=== PATIENT | male | born 1965 | race Caucasian/White ===

== ENCOUNTER 2021-03-14 20:59 | Observation (INO) ==
[2021-03-14 22:26] LABS: Basophils # (auto) 0.01 K/uL (0-0.2); Basophils % (auto) 0.1 %; Eosinophils # (auto) 0.13 K/uL (0-0.5); Eosinophils % (auto) 1.6 %; Hematocrit (blood only) 38.2 % (42-52); Hemoglobin 12.7 g/dL (14.0-18.0); Immature Granulocytes # (auto) 0.02 K/uL (0.00-0.02); Immature Granulocytes % (auto) 0.3 %; Lymphocytes # (auto) 1.47 K/uL (1.2-3.4); Lymphocytes % (auto) 18.5 %; Mean Corpuscular Hgb Conc 33.2 g/dL (32-36); Mean Corpuscular Volume 96.2 fL (80-100); Mean Platelet Volume 9.5 fL (7.4-10.4); Monocytes # (auto) 0.94 K/uL (0.11-0.59); Monocytes % (auto) 11.9 %; Neutrophils # (auto) 5.36 K/uL (1.4-6.5); Neutrophils % (auto) 67.6 %; Platelet Count 194 K/uL (130-400); RDW Coefficient of Variation 14.2 % (11.5-14.5); RDW Standard Deviation 50.5 fL (36.4-46.3); Red Blood Count 3.97 M/uL (4.7-6.1); White Blood Count 7.93 K/uL (4.8-10.8)
[2021-03-14] MEDS ORDERED: KETOROLAC TROMETHAMINE 15 MG/ML VIAL IV ONE (22:30)
--- NOTE | 2021-03-14 22:30 | Emergency Department Note ---
Impression & Plan Left-sided chest pain ED Provider Note INFORMANT: Patient ED PROVIDER(S): Marcus Moore MD CHIEF COMPLAINT: Chest pain PLAN: Disposition: Admitted Condition: Good Outpatient prescription management: none Referral: None MEDICAL DECISION MAKING: Patient presented with chest pain. No change with nitroglycerin. The patient had an unremarkable CBC and chemistry panel troponin negative. Chest x-ray was unremarkable. Patient was treated with Toradol. He was given a dose of morphin e. He did feel better with this. The patient did have recurrent pain. His ECG appeared to have no significant findings consistent with ischemia. He was given a dose of nitro and this did seem to help. The patient will need further management in the hospital. Consultation was made with Dr. Giacomo Arriaga of the [facility] service. Patient was evaluated in the ER for further management. Triage Nursing notes reviewed and agree them. Vital Signs: reviewed and remarkable for no significant abnormalities Differential diagnosis: Cardiac ischemia, aortic dissection, pulmonary embolism, pneumothorax, pneumonia, pericarditis, myocarditis, esophageal rupture, GERD, cholecystitis, pancreatitis, musculoskeletal, as well as other pathologies. Diagnostics interpreted by me: ECG: Twelve-lead ECG reveals normal sinus rhythm at [address] Anterolateral T wave inversions. No ST elevation. Normal axis. ECG #2: Twelve-lead ECG reveals sinus bradycardia 52 bpm. The anterolateral T wave changes have improved compared to the first. No PACs or PVCs. Normal axis . Cardiac Monitoring: Cardiac monitoring ordered by me: The patient was placed on continuous cardiac monitoring and observed. It revealed a normal sinus rhythm at 60 beats per minute without ectopy or evidence of dysrhythmia. Imaging studies: Imaging studies: Chest x-ray. Findings: A chest x-ray was performed and revealed no pneumothorax, effusion, infiltrate, pulmonary edema, free air under the diaphragm, or wide mediastinum. Impression: No acute disease. CT scan of the chest is negative for pulmonary embolus or dissection. HPI: The patient is a 55 year old male who presents to the Emergency Room with complaints of left chest pain. This started 1900 hrs and is radiating to the left arm and back. The patient also notes the following associated symptoms, diaphoresis, nausea, SOB. The patient has been given ASA and nitro for relieving factors. Current pain is rated as 7/10. Pt denies LOC, headache, fevers, chills, visual changes, neck pain, vomiting, abdominal pain, back pain, melena, hematochezia, urinary symptoms, numbness, weakness, lymphadenopathy, rash, or other complaints. ROS: See above HPI for pertinent positives & negatives. A total of 10 systems reviewed and were otherwise negative. PAST MEDICAL HISTORY:See Below , TAA PAST SURGICAL HISTORY:See Below, TAA repair FAMILY HISTORY:See Below SOCIAL HISTORY:See Below, incarcerated HOME MEDICATIONS:See Below ALLERGIES:See Below VITALS:See Below PHYSICAL EXAMINATION: GENERAL: Awake, alert, well-appearing, in no distress HENT: Normocephalic, atraumatic. Oropharynx unremarkable. EYES: Normal conjunctiva. Sclera non-icteric. NECK: Inspection normal. Non-tender. Supple. No nuchal rigidity. FROM. No masses. RESPIRATORY: Clear to auscultation. No wheezes. No rales. Normal respiratory effort. CARDIAC: Normal rate. Normal rhythm. No murmurs. No rubs. Extremities warm and well perfused. Pulses equal. No JVD. GI: Soft, non-distended. No tenderness to palpation. No rebound or guarding. No masses. RECTAL: Deferred. MUSCULOSKELETAL: Atraumatic. Chest examination reveals no tenderness. The back is symmetrical on inspection without obvious abnormality. There is no CVA ten derness to palpation. No joint edema. LOWER EXTREMITIES: Calves are equal size bilaterally and non-tender. No edema. No discoloration. NEURO: Normal sensorium. No sensory or motor deficits noted. SKIN: No rash or jaundice noted. Marcus Moore MD Past Med/Surg History Medical History Asthma Surgical History Hx of CABG Social History Smoking Status: Former smoker Tobacco Type: E-cigarettes / Vaping Hx Alcohol Use: No Hx Substance Use: No Preferred Language: Indonesian Communication Ability: Effective Beliefs That Will Affect Care: None Current Living Situation: Other Current Living Situation Comment: state correctional institution Feels Safe at Home: Declines to Answer Assistive Devices: Oxygen - Continuous Allergies Allergies Allergy/AdvReac Type Severity Reaction Status Date / Time Penicillins Allergy Intermediate Hives Verified 02/21/21 02:27 bee venom protein (honey bee) Allergy Unknown Unknown Verified 02/21/21 02:27 cephalexin [From Keflex] AdvReac Intermediate Gastrointestinal Verified 02/21/21 02:27 Upset Home Meds Home Medications Medication Instructions Recorded Confirmed aspirin 81 mg tablet,delayed 81 mg PO DAILY 02/05/21 03/14/21 release atorvastatin 40 mg tablet 40 mg PO DAILY 02/05/21 03/14/21 ciclesonide 80 mcg/actuation 1 puff INHALATION BID 02/05/21 03/14/21 aerosol inhaler (Alvesco) levalbuterol tartrate 45 2 inh INHALATION QID PRN 02/05/21 03/14/21 mcg/actuation aerosol inhaler (Xopenex HFA) lisinopril 20 mg tablet 20 mg PO DAILY 02/05/21 03/14/21 mirtazapine 45 mg tablet 45 mg PO HS 02/05/21 03/14/21 montelukast 10 mg tablet 10 mg PO DAILY 02/05/21 03/14/21 sertraline 50 mg tablet 50 mg PO DAILY 02/05/21 03/14/21 tamsulosin 0.4 mg capsule (Flomax) 0.4 mg PO HS 02/05/21 03/14/21 Previous Rx's Medication Instructions Recorded famotidine 20 mg tablet 20 mg PO DAILY #30 tab 03/15/21 Results & Data (ED) Vital Signs Vital Signs - 24 hr 03/15/21 00:00 03/15/21 01:00 Pulse Rate 51 L 57 L Pulse Rate from SpO2 Sensor 51 L 57 L Respiratory Rate 17 19 Blood Pressure 144/82 H 141/80 H Blood Pressure Mean 102 100 Pulse Oximetry 100 96 Laboratory Data Result diagrams: 03/14/21 21:09 03/14/21 21:09 Lab Results 03/14/21 03/14/21 03/14/21 Range/Units 21:09 21:09 21:09 WBC 7.93 (4.8-10.8) K/uL RBC 3.97 L (4.7-6.1) M/uL Hgb 12.7 L (14.0-18.0) g/dL Hct 38.2 L (42-52) % MCV 96.2 (80-100) fL MCH 32.0 (25-34) pg MCHC 33.2 (32-36) g/dL RDW Std Deviation 50.5 H (36.4-46.3) fL RDW Coeff of Yoselin 14.2 (11.5-14.5) % Plt Count 194 (130-400) K/uL MPV 9.5 (7.4-10.4) fL Immature Gran % (Auto) 0.3 % Neut % (Auto) 67.6 % Lymph % (Auto) 18.5 % [place] % (Auto) 11.9 % Eos % (Auto) 1.6 % Baso % (Auto) 0.1 % Neut # (Auto) 5.36 (1.4-6.5) K/uL Lymph # (Auto) 1.47 (1.2-3.4) K/uL [place] # (Auto) 0.94 H (0.11-0.59) K/uL Eos # (Auto) 0.13 (0-0.5) K/uL Baso # (Auto) 0.01 (0-0.2) K/uL Immature Gran # (Auto) 0.02 (0.00-0.02) K/uL APTT 24.4 (21.0-31.0) Seconds PTT Ratio 0.9 Sodium 138 (136-145) mmol/L Potassium 4.2 (3.5-5.1) mmol/L Chloride 106 (98-107) mmol/L Carbon Dioxide 29 (21-32) mmol/L Anion Gap 3.0 (3-11) BUN 12 (7-18) mg/dl Creatinine 0.90 (0.6-1.4) mg/dl Est Cr Clr Drug Dosing 144.9 ml/min Est GFR ( Amer) 109.5 ml/min Est GFR (Non-Af Amer) 94.5 ml/min BUN/Creatinine Ratio 12.9 (10-20) Glucose 95 (70-99) mg/dl Calcium 8.2 L (8.5-10.1) mg/dl Total Bilirubin 0.3 (0.2-1) mg/dl AST 18 (15-37) U/L ALT 24 (12-78) U/L Alkaline Phosphatase 84 (45-117) U/L Troponin I < 0.015 (0-0.045) ng/ml Total Protein 7.0 (6.4-8.2) gm/dl Albumin 3.4 (3.4-5.0) gm/dl Globulin 3.6 (2.5-4.0) gm/dl Albumin/Globulin Ratio 1.0 (0.9-2) Lipase 107 (73-393) U/L COVID-19 Eval Order SARS-CoV-2 (PCR) (Negative) 03/14/21 03/14/21 Range/Units 21:40 21:40 WBC (4.8-10.8) K/uL RBC (4.7-6.1) M/uL Hgb (14.0-18.0) g/dL Hct (42-52) % MCV (80-100) fL MCH (25-34) pg MCHC (32-36) g/dL RDW Std Deviation (36.4-46.3) fL RDW Coeff of Yoselin (11.5-14.5) % Plt Count (130-400) K/uL MPV (7.4-10.4) fL Immature Gran % (Auto) % Neut % (Auto) % Lymph % (Auto) % [place] % (Auto) % Eos % (Auto) % Baso % (Auto) % Neut # (Auto) (1.4-6.5) K/uL Lymph # (Auto) (1.2-3.4) K/uL [place] # (Auto) (0.11-0.59) K/uL Eos # (Auto) (0-0.5) K/uL Baso # (Auto) (0-0.2) K/uL Immature Gran # (Auto) (0.00-0.02) K/uL APTT (21.0-31.0) Seconds PTT Ratio Sodium (136-145) mmol/L Potassium (3.5-5.1) mmol/L Chloride (98-107) mmol/L Carbon Dioxide (21-32) mmol/L Anion Gap (3-11) BUN (7-18) mg/dl Creatinine (0.6-1.4) mg/dl Est Cr Clr Drug Dosing ml/min Est GFR ( Amer) ml/min Est GFR (Non-Af Amer) ml/min BUN/Creatinine Ratio (10-20) Glucose (70-99) mg/dl Calcium (8.5-10.1) mg/dl Total Bilirubin (0.2-1) mg/dl AST (15-37) U/L ALT (12-78) U/L Alkaline Phosphatase (45-117) U/L Troponin I (0-0.045) ng/ml Total Protein (6.4-8.2) gm/dl Albumin (3.4-5.0) gm/dl Globulin (2.5-4.0) gm/dl Albumin/Globulin Ratio (0.9-2) Lipase (73-393) U/L COVID-19 Eval Order Covid19 at [facility] SARS-CoV-2 (PCR) NEGATIVE (Negative) Administered Medications Discontinued Medications Al Hydrox/Mg Hydrox/Simethicone (Aluminum/Magnesium Susp 30 Ml Udc) 30 ml PO NOW STA Stop: 03/15/21 12:05 Last Admin: 03/15/21 12:09 Dose: 30 ml Documented by: [id number] Aspirin (Aspirin 81 Mg Ectab) 81 mg PO DAILY OLGA Stop: 04/14/21 08:59 Last Admin: 03/15/21 08:35 Dose: 81 mg Documented by: [id number] Atorvastatin Calcium (Atorvastatin 40 Mg Tab) 40 mg PO DAILY OLGA Stop: 04/14/21 08:59 Last Admin: 03/15/21 08:35 Dose: 40 mg Documented by: [id number] Sodium Chloride (Nss 1000ml) 1,000 mls @ 150 mls/hr IV .[id number] OLGA Stop: 04/14/21 05:09 Last Infusion: 03/15/21 07:52 Dose: 0 mls/hr Documented by: [id number] Admin: 03/15/21 05:13 Dose: 150 mls/hr Documented by: [id number] Ibuprofen (Ibuprofen 200 Mg Tab) 400 mg PO Q6H PRN PRN Reason: Pain Stop: 04/14/21 08:03 Last Admin: 03/15/21 11:00 Dose: 400 mg Documented by: [id number] Ioversol (Optiray 320 125ml) 120 ml IV ONCE ONE Stop: 03/14/21 22:49 Last Admin: 03/14/21 22:48 Dose: 120 ml Documented by: [id number] Ketorolac Tromethamine (Ketorolac Tromethamine 15 Mg/Ml Vial) 10 mg IV NOW ONE Stop: 03/14/21 22:31 Last Admin: 03/14/21 23:01 Dose: 10 mg Documented by: [id number] Lisinopril (Lisinopril 20 Mg Tab) 20 mg PO DAILY OLGA Stop: 04/14/21 08:59 Last Admin: 03/15/21 08:35 Dose: 20 mg Documented by: [id number] Montelukast Sodium (Montelukast Sodium 10 Mg Tablet) 10 mg PO DAILY OLGA Stop: 04/14/21 08:59 Last Admin: 03/15/21 08:35 Dose: 10 mg Documented by: [id number] Morphine Sulfate (Morphine Sulfate 2 Mg/Ml Carp) 1 mg IV NOW STA Stop: 03/15/21 00:09 Last Admin: 03/15/21 00:29 Dose: 1 mg Documented by: [id number] Morphine Sulfate (Morphine Sulfate 2 Mg/Ml Carp) 1 mg IV Q3H PRN PRN Reason: Pain Stop: 03/29/21 04:59 Last Admin: 03/15/21 05:33 Dose: 1 mg Documented by: [id number] Nitroglycerin (Nitroglycerin Sl 0.4 Mg/Tab Tab) 0.4 mg SL NOW STA Stop: 03/15/21 02:57 Last Admin: 03/15/21 03:03 Dose: 0.4 mg Documented by: [id number] Sertraline HCl (Sertraline Hcl 50 Mg Tablet) 50 mg PO DAILY [facility] Stop: 04/14/21 08:59 Last Admin: 03/15/21 08:35 Dose: 50 mg Documented by: [id number] Discharge Plan Visit Data Chief Complaint: Chest Pain Stated Complaint: CHEST PAIN w/ NAUSEA ED Provider: Marcus Moore Discharge Problem: Left-sided chest pain Patient Disposition: Admitted As Inpatient Discharge Instructions Interventions: ED Discharge Assessment Last Done: 03/15/21 04:29
[2021-03-14 22:35] LABS: Alanine Aminotransferase 24 U/L (12-78); Albumin Level 3.4 gm/dl (3.4-5.0); Aspartate Aminotransferase 18 U/L (15-37); BUN Creatinine Ratio 12.9 (10-20); Blood Urea Nitrogen 12 mg/dl (7-18); Calcium 8.2 mg/dl (8.5-10.1); Carbon Dioxide 29 mmol/L (21-32); Chloride 106 mmol/L (98-107); Creatinine Clr Calc Pharmacy 144.9 ml/min; Est GFR (African American) 109.5 ml/min; Est GFR (Non-African American) 94.5 ml/min; Glucose 95 mg/dl (70-99); Lipase 107 U/L (73-393); Potassium 4.2 mmol/L (3.5-5.1); Sodium 138 mmol/L (136-145)
[2021-03-14 22:37] LABS: Partial Thromboplastin Ratio 0.9; Partial Thromboplastin Time 24.4 Seconds (21.0-31.0)
[2021-03-14 22:40] LABS: Alkaline Phosphatase 84 U/L (45-117); Bilirubin,Total 0.3 mg/dl (0.2-1); Globulin 3.6 gm/dl (2.5-4.0); Troponin I < 0.015 ng/ml (0-0.045)
[2021-03-14] MEDS ORDERED: OPTIRAY 320 125ml IV ONE (22:48)
[2021-03-15] MEDS ORDERED: MoRPHine SULFATE 2 MG/ML CARP IV STA (00:08)
--- NOTE | 2021-03-15 00:54 | History & Physical Report ---
Date of Service March 15, 2021 Assessment & Plan (1) Left-sided chest pain: Plan: 55 yo M admitted for chest pain/aortic dissection rule out. 1. Chest Pain - first trop negative, trend - mild T wave changes, no ST changes - CTA negative for PE, Ascending aortic arch 3.6 cm, decreased from 3.8cm in 02/13. No sign of dissection - nitroglycerin, daily ekg, cardiology consult. - TTE in AM. - ASA/statin - HR <60 currently, holding off on metoprolol HTN - cont lisinopril - CPAP HS CAD - ASA/statin as above - AM lipid profile, A1c for risk stratification - high risk ASCVD score dvt ppx: lovenox fen/gi: heart healthy code status: full code dispo: med/tele (2) HTN (hypertension): (3) AMI (obstructive sleep apnea): (4) Pre-diabetes: History of Present Illness Primary Care Provider: [facility] Rodriguez 55 yo M with hx ventricular aneurysm? s/p repair in 2019, HTN, HLD, pre- diabetes, AMI who presents to the ER from [facility] for complaints of chest pain that started at 7 pm today. He states it came on all of a sudden, had left sided chest pain that radiated to the back and was extremely sweating. He says the pain is not positional, and continues to this moment, and has not improved much with toradol/morphine. He also attests to trouble and pain with taking deep breaths. He denies any previous episodes like this. He notes that he does have a family history of MA -- his father had multiple MIs starting at age 68 and his maternal grandmother had an MA. Allergies Allergy/AdvReac Type Severity Reaction Status Date / Time Penicillins Allergy Intermediate Hives Verified 02/21/21 02:27 bee venom protein (honey bee) Allergy Unknown Unknown Verified 02/21/21 02:27 cephalexin [From Keflex] AdvReac Intermediate Gastrointestinal Verified 02/21/21 02:27 Upset Home Medications Medication Instructions Recorded Confirmed Type aspirin 81 mg tablet,delayed 81 mg PO DAILY 02/05/21 03/14/21 History release atorvastatin 40 mg tablet 40 mg PO DAILY 02/05/21 03/14/21 History ciclesonide 80 mcg/actuation 1 puff INHALATION BID 02/05/21 03/14/21 History aerosol inhaler (Alvesco) levalbuterol tartrate 45 2 inh INHALATION QID PRN 02/05/21 03/14/21 History mcg/actuation aerosol inhaler (Xopenex HFA) lisinopril 20 mg tablet 20 mg PO DAILY 02/05/21 03/14/21 History mirtazapine 45 mg tablet 45 mg PO HS 02/05/21 03/14/21 History montelukast 10 mg tablet 10 mg PO DAILY 02/05/21 03/14/21 History sertraline 50 mg tablet 50 mg PO DAILY 02/05/21 03/14/21 History tamsulosin 0.4 mg capsule (Flomax) 0.4 mg PO HS 02/05/21 03/14/21 History famotidine 20 mg tablet 20 mg PO DAILY #30 tab 03/15/21 Rx Past Med/Surg History Medical History Asthma Surgical History Hx of CABG Social History Smoking Status: Former smoker Tobacco Type: E-cigarettes / Vaping Hx Alcohol Use: No Hx Substance Use: No Preferred Language: Chilean Communication Ability: Effective Beliefs That Will Affect Care: None Current Living Situation: Other Current Living Situation Comment: state correctional institution Feels Safe at Home: Declines to Answer Assistive Devices: Oxygen - Continuous Review of Systems Review of Systems: All systems reviewed & are unremarkable except as noted in Subjective Physical Exam Physical Exam: Constitutional: obese, in mild distress, anxious appearing Eyes: EOMI, pupils equal and reactive bilaterally, no scleral icterus Cardiac: difficult to auscultate heart sounds given body habitus, RRR, no murmurs, gallops or rubs. Pulm: CTA BL, no wheezes, rhonchi, crackles or rubs, breathing comfortably on 2L NC Abd: soft, nontender, nondistended, normal bowel sounds, no rebound or guarding Extremities: 2+ peripheral pulses in all 4 extremities, no edema Neuro: no focal deficits, moving all 4 limbs, A&Ox3 Results & Data Results & Data ([facility]) Vital Signs (Past 12 Hours) Vital Signs Temp Pulse Resp BP Pulse Ox 03/14/21 23:03 54 L 16 03/14/21 22:00 55 L 17 138/85 98 03/14/21 21:16 61 18 97 03/14/21 21:04 37.2 C 62 18 127/54 L 96 03/14/21 21:00 64 12 127/54 L 98 Laboratory Results Laboratory Results WBC 7.93 K/uL (4.8-10.8) 03/14/21 21:09 RBC 3.97 M/uL (4.7-6.1) L 03/14/21 21:09 Hgb 12.7 g/dL (14.0-18.0) L 03/14/21 21:09 Hct 38.2 % (42-52) L 03/14/21 21:09 MCV 96.2 fL (80-100) 03/14/21 21:09 MCH 32.0 pg (25-34) 03/14/21 21:09 MCHC 33.2 g/dL (32-36) 03/14/21 21:09 RDW Std Deviation 50.5 fL (36.4-46.3) H 03/14/21 21:09 RDW Coeff of Yoselin 14.2 % (11.5-14.5) 03/14/21 21:09 Plt Count 194 K/uL (130-400) 03/14/21 21:09 MPV 9.5 fL (7.4-10.4) 03/14/21 21:09 Immature Gran % (Auto) 0.3 % 03/14/21 21:09 Neut % (Auto) 67.6 % 03/14/21 21:09 Lymph % (Auto) 18.5 % 03/14/21 21:09 [place] % (Auto) 11.9 % 03/14/21 21:09 Eos % (Auto) 1.6 % 03/14/21 21:09 Baso % (Auto) 0.1 % 03/14/21 21:09 Neut # (Auto) 5.36 K/uL (1.4-6.5) 03/14/21 21:09 Lymph # (Auto) 1.47 K/uL (1.2-3.4) 03/14/21 21:09 [place] # (Auto) 0.94 K/uL (0.11-0.59) H 03/14/21 21:09 Eos # (Auto) 0.13 K/uL (0-0.5) 03/14/21 21:09 Baso # (Auto) 0.01 K/uL (0-0.2) 03/14/21 21:09 Immature Gran # (Auto) 0.02 K/uL (0.00-0.02) 03/14/21 21:09 APTT 24.4 Seconds (21.0-31.0) 03/14/21 21:09 PTT Ratio 0.9 03/14/21 21:09 Sodium 138 mmol/L (136-145) 03/14/21 21:09 Potassium 4.2 mmol/L (3.5-5.1) 03/14/21 21:09 Chloride 106 mmol/L (98-107) 03/14/21 21:09 Carbon Dioxide 29 mmol/L (21-32) 03/14/21 21:09 Anion Gap 3.0 (3-11) 03/14/21 21:09 BUN 12 mg/dl (7-18) 03/14/21 21:09 Creatinine 0.90 mg/dl (0.6-1.4) 03/14/21 21:09 Est Cr Clr Drug Dosing 144.9 ml/min 03/14/21 21:09 Est GFR ( Amer) 109.5 ml/min 03/14/21 21:09 Est GFR (Non-Af Amer) 94.5 ml/min 03/14/21 21:09 BUN/Creatinine Ratio 12.9 (10-20) 03/14/21 21:09 Glucose 95 mg/dl (70-99) 03/14/21 21:09 Calcium 8.2 mg/dl (8.5-10.1) L 03/14/21 21:09 Total Bilirubin 0.3 mg/dl (0.2-1) 03/14/21 21:09 AST 18 U/L (15-37) 03/14/21 21:09 ALT 24 U/L (12-78) 03/14/21 21:09 Alkaline Phosphatase 84 U/L (45-117) 03/14/21 21:09 Troponin I < 0.015 ng/ml (0-0.045) 03/14/21 21:09 Total Protein 7.0 gm/dl (6.4-8.2) 03/14/21 21:09 Albumin 3.4 gm/dl (3.4-5.0) 03/14/21 21:09 Globulin 3.6 gm/dl (2.5-4.0) 03/14/21 21:09 Albumin/Globulin Ratio 1.0 (0.9-2) 03/14/21 21:09 Lipase 107 U/L (73-393) 03/14/21 21:09 COVID-19 Eval Order Covid19 at [facility] 03/14/21 21:40 SARS-CoV-2 (PCR) NEGATIVE (Negative) 03/14/21 21:40 Supervising Physician Co-Signing Physician Notes Attending addendum: I have physically seen this patient, have supervised the medical residents activities, and agree with the H&P unless as otherwise noted. Assessment and Plan: Chest pain/CAD/hypertension- The patient will be admitted to telemetry for serial cardiac enzymes, serial EKG's, cardiac rhythm monitoring and a 2-D echocardiogram with Dopplers. Aspirin 81 mg daily Continue lisinopril Hyperlipidemia- Continue atorvastatin 40 mg daily Check a fasting lipid panel BPH with LUTS- Continue tamsulosin Obstructive sleep apnea- CPAP at at bedtime Remaining orders and notations as noted Resident Activity Tracking Resident Involvement: Resident Care Provided Care Provided: Adult Hospital Medicine
[2021-03-15] MEDS ORDERED: NITROGLYCERIN SL 0.4 MG/TAB TAB SL STA (02:56)
[2021-03-15] MEDS ORDERED: NITROGLYCERIN SL 0.4 MG/TAB TAB SL PRN (03:32)
[2021-03-15] MEDS ORDERED: MoRPHine SULFATE 2 MG/ML CARP IV PRN (05:00)
[2021-03-15] MEDS ORDERED: SODIUM CHLORIDE 0.9% 1000ML 1,000 ML IV SCH (05:10)
[2021-03-15] MEDS ORDERED: IBUPROFEN 200 MG TAB PO PRN (08:04)
[2021-03-15] MEDS ORDERED: ACETAMINOPHEN 325 MG TAB PO PRN (08:04)
--- NOTE | 2021-03-15 08:17 | XRay Report ---
XR chest 1V portable HISTORY: 55 years-old Male Chest Pain . Atypical chest pain COMPARISON: CTA chest of same day TECHNIQUE: Portable AP view of the chest FINDINGS: Cardiac silhouette is upper limits of normal in size. Prior median sternotomy. No pneumothorax, pleur al effusion, airspace consolidation or overt pulmonary edema. Degenerative changes of the shoulders a nd spine. IMPRESSION: No acute process. ACT 112: Negative or not required by law. The above report was generated using voice recognition software. It may contain grammatical, syntax o r spelling errors. Electronically signed by: Jordon Gardner M.D. 03/15/2021 8:16 AM
--- NOTE | 2021-03-15 08:42 | CT Scan Report ---
CHEST CTA for AORTIC DISSECTION CT DOSE: 2557.65 mGy.cm HISTORY: Atypical chest pain, prior thoracic aortic aneurysm repair TECHNIQUE: Multiaxial CT images of the chest were performed both before and after the intravenous adm inistration of contrast to evaluate the aorta. Maximal intensity projection images were also obtained . A dose lowering technique was utilized adhering to the principles of ALARA. COMPARISON STUDY: Chest CTA 02/05/2021. FINDINGS: Noncontrast imaging through the chest shows no evidence for an intramural hematoma within t he thoracic aorta. There are postoperative changes consistent with prior repair of an ascending thora cic aortic aneurysm. No evidence for recurrent aneurysm. No evidence for an aortic dissection. The he art is normal in size. The central pulmonary arteries are patent. No mediastinal or hilar lymphadenop athy. No pleural or pericardial effusions. Limited views of the upper abdomen demonstrate normal live r, spleen, and adrenal glands. There are poststernotomy changes. No suspicious lytic or blastic osseo us lesions. The central airways are patent. No pneumothorax. No focal lung consolidations to suggest pneumonia. No evidence for pulmonary edema. Groundglass densities within the lung bases posteriorly f avor nondependent change. IMPRESSION: No evidence for an aortic dissection. ACT 112: Negative or not required by law. Electronically signed by: Graeme Crook M.D. 03/15/2021 8:40 AM
[2021-03-15] MEDS ORDERED: ASPIRIN 81 MG ECTAB PO SCH (09:00)
[2021-03-15] MEDS ORDERED: ATORVASTATIN 40 MG TAB PO SCH (09:00)
[2021-03-15] MEDS ORDERED: SERTRALINE HCL 50 MG TABLET PO SCH (09:00)
[2021-03-15] MEDS ORDERED: lisinopril 20 MG TAB PO SCH (09:00)
[2021-03-15] MEDS ORDERED: MONTELUKAST SODIUM 10 MG TABLET PO SCH (09:00)
[2021-03-15] MEDS ORDERED: ALUMINUM/MAGNESIUM SUSP 30 ML UDC PO STA (12:04)
--- NOTE | 2021-03-15 13:27 | Electrocardiogram Report ---
Test Reason : Blood Pressure : / mmHG Vent. Rate : 066 BPM Atrial Rate : 066 BPM P-R Int : 174 ms QRS Dur : 102 ms QT Int : 430 ms P-R-T Axes : 035 041 087 degrees QTc Int : 450 ms Normal sinus rhythm Nonspecific T wave abnormality Abnormal ECG When compared with ECG of 21-FEB-2021 01:55, No significant change was found Confirmed by Wilbert Rushing ([id number]) on 03/15/2021 1:27:01 PM Referred By: Michael GONSALEZ Confirmed By:Wilbert Rushing
--- NOTE | 2021-03-15 13:31 | Electrocardiogram Report ---
Test Reason : Blood Pressure : / mmHG Vent. Rate : 052 BPM Atrial Rate : 052 BPM P-R Int : 184 ms QRS Dur : 102 ms QT Int : 514 ms P-R-T Axes : 046 053 079 degrees QTc Int : 478 ms Sinus bradycardia Low voltage QRS Borderline ECG When compared with ECG of 14-MAR-2021 21:04, (unconfirmed) No significant change was found Confirmed by Wilbert Rushing ([id number]) on 03/15/2021 1:31:20 PM Referred By: Michael [facility] Confirmed By:Wilbert Rushing
--- NOTE | 2021-03-15 15:06 | XCELERA ---
[id number]
--- NOTE | 2021-03-15 16:31 | Discharge Summary ---
Date of Service March 15, 2021 Admission HPI Per Admitting Provider 55 yo M with hx ventricular aneurysm? s/p repair in 2019, HTN, HLD, pre- diabetes, AMI who presents to the ER from [facility] for complaints of chest pain that started at 7 pm today. He states it came on all of a sudden, had left sided chest pain that radiated to the back and was extremely sweating. He says the pain is not positional, and continues to this moment, and has not improved much with toradol/morphine. He also attests to trouble and pain with taking deep breaths. He denies any previous episodes like this. He notes that he does have a family history of OR -- his father had multiple MIs starting at age 68 and his maternal grandmother had an OR. Discharge Data Allergies Allergy/AdvReac Type Severity Reaction Status Date / Time Penicillins Allergy Intermediate Hives Verified 02/21/21 02:27 bee venom protein (honey bee) Allergy Unknown Unknown Verified 02/21/21 02:27 cephalexin [From Keflex] AdvReac Intermediate Gastrointestinal Verified 02/21/21 02:27 Upset Consultations 03/15/21 01:06 ED Decision to Admit Stat Ordered Studies 03/14/21 22:30 CT angio chest dissec wo/w con Urgent Hospital Course (1) Left-sided chest pain: 55 yo M admitted for chest pain/aortic dissection rule out. 1. Chest Pain - first trop negative, trend - mild T wave changes, no ST changes - CTA negative for PE, Ascending aortic arch 3.6 cm, decreased from 3.8cm in 02/13. No sign of dissection - nitroglycerin, daily ekg, cardiology consult. - TTE in AM. - ASA/statin - HR <60 currently, holding off on metoprolol HTN - cont lisinopril - CPAP HS CAD - ASA/statin as above - AM lipid profile, A1c for risk stratification - high risk ASCVD score dvt ppx: lovenox fen/gi: heart healthy code status: full code dispo: med/tele (2) HTN (hypertension): (3) AMI (obstructive sleep apnea): (4) Pre-diabetes: Discharge Plan Discharge Items Patient Disposition: Home - Self-Care Reason For Visit: CHEST PAIN Discharge Diagnosis: Atypical chest pain Activity: Resume your previous activity Non-emergency contact: Primary Care Provider Call non-emergency contact if: you have any medication questions and your symptoms worsen Follow-up/Referrals: Michael GONSALEZ [Primary Care Provider] - Diet: Heart Healthy Addtl Attending Provider Instructions: Bernard Hahn is a 55 year old male from [facility] due to chest pain. Serial troponins were negative overnight. Echocardiogram was unremarkable and showed no wall motion abnormalities. CTA angiogram for dissection was negative. Chest pain was not reproducible on palpation. Creatine kinase negative for myositis. Suspect GERD in origin given improvement with maalox therefore recommend starting famotidine 20mg PO daily for 1 month then re-assesing need for continu ation. He is now medically stable for discharge. Pending Studies at Discharge: No Stand-Alone Forms: My [facility] [employer], Smoking Cessation Medications and DC Order Prescriptions: New famotidine 20 mg tablet 20 mg PO DAILY Qty: 30 RF: 0 Continued atorvastatin 40 mg Tablet 40 mg PO DAILY RF: 0 lisinopril 20 mg Tablet 20 mg PO DAILY RF: 0 aspirin 81 mg Tablet,Delayed Release (Dr/Ec) 81 mg PO DAILY RF: 0 tamsulosin [Flomax] 0.4 mg Capsule 0.4 mg PO HS RF: 0 mirtazapine 45 mg Tablet 45 mg PO HS RF: 0 montelukast 10 mg Tablet 10 mg PO DAILY RF: 0 sertraline 50 mg Tablet 50 mg PO DAILY RF: 0 levalbuterol tartrate [Xopenex HFA] 45 mcg/actuation Hfa Aerosol Inhaler 2 inh INHALATION QID PRN (Reason: Shortness Of Breath Or Wheezing) RF: 0 Alvesco 80 mcg/actuation Hfa Aerosol Inhaler 1 puff INHALATION BID RF: 0 Discharge Orders: Discharge Order (Routine); Ordered 03/15/21 Ordered By: Gian Monroy Admission Data Admit Date/Time: 03/15/21 01:20 Attending Provider: Gian Monroy Admit Provider: Sheila Pruitt Primary Care Provider: Michael GONSALEZ Other Providers: Giacomo Arriaga Coding Diagnoses Left-sided chest pain R07.9 HTN (hypertension) I10 AMI (obstructive sleep apnea) G47.33 Pre-diabetes R73.03
[2021-03-15] MEDS ORDERED: MIRTAZAPINE SOLTAB 15 MG PO SCH (21:00)
[2021-03-15] MEDS ORDERED: TAMSULOSIN HCL 0.4 MG CAP PO SCH (21:00)
--- NOTE | 2021-03-16 00:45 | Billing Data ---
Date of Service March 16, 2021 Coding Level of Care Code INT OBSERVATION CARE 70M LVL 3
== END 2021-03-15 17:50 | disposition home or self-care (01) ==
LOC: ED 20:59 → 2W 20:59 → SUATTDRO 03-15 01:20 → 2W 03-15 04:29

== ENCOUNTER 2022-11-27 00:50 | Observation (INO) ==
[2022-11-27 01:35] LABS: Basophils # (auto) 0.03 K/uL (0-0.2); Basophils % (auto) 0.5 %; Eosinophils # (auto) 0.12 K/uL (0-0.50); Hematocrit (blood only) 35.4 % (42.0-52.0); Immature Granulocytes # (auto) 0.02 K/uL (0.01-0.20); Immature Granulocytes % (auto) 0.3 %; Lymphocytes # (auto) 1.42 K/uL (1.2-3.4); Lymphocytes % (auto) 24.2 %; Mean Corpuscular Hemoglobin 32.5 pg (25.0-34.0); Mean Corpuscular Hgb Conc 33.9 g/dL (32.0-36.0); Mean Corpuscular Volume 95.9 fL (80.0-100.0); Monocytes % (auto) 10.2 %; Neutrophils # (auto) 3.67 K/uL (1.40-6.50); Neutrophils % (auto) 62.8 %; Platelet Count 143 K/uL (130-400); RDW Coefficient of Variation 13.7 % (11.5-14.5); RDW Standard Deviation 48.2 fL (36.4-46.3); Red Blood Count 3.69 M/uL (4.70-6.10); White Blood Count 5.86 K/ul (4.8-10.8)
[2022-11-27 01:38] LABS: Albumin Globulin Ratio 1.4 (0.9-2); Albumin Level 3.8 gm/dl (3.4-5.0); BUN Creatinine Ratio 11.8 (10-20); Bilirubin,Total 0.4 mg/dl (0.2-1.0); Creatinine Clr Calc Pharmacy 133.6 ml/min; Est GFR (African American) 103.8 ml/min; Est GFR (Non-African American) 89.5 ml/min; Globulin 2.7 gm/dl (2.5-4.0); Magnesium 1.8 mg/dl (1.7-2.4); Potassium 4.1 mmol/L (3.5-5.1); Total Protein 6.5 gm/dl (6.0-8.3)
[2022-11-27 01:44] LABS: Troponin I High Sensitivity 3.2 pg/ml (0-20)
[2022-11-27] MEDS ORDERED: ACETAMINOPHEN 1,000 MG/100 ML VIAL IV STA (01:47)
--- NOTE | 2022-11-27 04:12 | History & Physical Report ---
Date of Service November 27, 2022 Assessment & Plan (1) Left-sided chest pain: Plan: 57-year-old male with history of prior aortic aneurysm repair, AMI and hypertension presenting with acute onset left-sided chest pain. Troponin unremarkable. EKG with no acute ischemic changes. Chest x-ray unremarkable. Observation to medical with telemetry Trend troponin Check 2D echo Check CTA chest given history of prior aortic aneurysm repair Dilaudid as needed for pain Zofran as needed for nausea (2) HTN (hypertension): Plan: Blood pressure borderline low at 116/50 currently Hold lisinopril Continue to monitor (3) AMI (obstructive sleep apnea): Plan: Chronic. Patient reports compliance with his home CPAP Continue CPAP nightly History of Present Illness Chief Complaint: Chest pain Primary Care Provider: WALLACE Michael Bernard Hahn Is a 57-year-old male with history of asthma, hypertension, prior aortic aneurysm repair presenting from [facility] with complaint of chest pain. Patient was in his usual state of health. He woke up last night at 2215 to use the bathroom and had acute onset of left-sided chest pain. He reports his pain is stabbing, severe, 7/10. He took a nitroglycerin tablet with no improvement. He reports diaphoresis and shortness of breath associated with the pain as well as nausea and dry heaving. He took a second nitroglycerin jeff roximately 15 minutes after the first again with no relief. He then took a third nitroglycerin and reports he almost passed out. Still with chest pain with radiation down his left arm and into his neck. Additional complaints include swelling and pain in his right lower extremity as well as redness, drainage and crusting of his left eye which has been ongoing for about a month. In the ER patient is afebrile, bradycardic with heart rate in the 30s and 40s, sinus, blood pressure stable. No respiratory distress. Adequate oxygenation on room air Allergies Allergy/AdvReac Type Severity Reaction Status Date / Time Penicillins Allergy Intermediate Hives Verified 11/27/22 01:10 bee venom protein (honey bee) Allergy Unknown Unknown Verified 11/27/22 01:10 cephalexin [From Keflex] AdvReac Intermediate Gastrointestinal Verified 11/27/22 01:10 Upset Home Medications Medication Instructions Recorded Confirmed Type aspirin 81 mg tablet,delayed 81 mg PO DAILY 02/05/21 11/27/22 History release atorvastatin 40 mg tablet 40 mg PO DAILY 02/05/21 11/27/22 History ciclesonide 80 mcg/actuation 1 puff inhalation BID 02/05/21 11/27/22 History aerosol inhaler (Alvesco) albuterol sulfate 90 mcg/actuation 2 puff inhalation QID PRN 06/22/22 11/27/22 History aerosol inhaler Shortness Of Breath lisinopril 30 mg tablet 30 mg PO DAILY 06/22/22 11/27/22 History lithium carbonate 300 mg tablet 300 mg PO HS 06/22/22 11/27/22 History trazodone 100 mg tablet 100 mg PO HS 06/22/22 11/27/22 History ibuprofen 600 mg tablet 600 mg PO TID 11/27/22 11/27/22 History ketotifen fumarate 0.025 % (0.035 1 drp OPL BID 11/27/22 11/27/22 History %) eye drops (Eye Itch Relief) montelukast 10 mg tablet 10 mg PO DAILY 11/27/22 11/27/22 History (Singulair) nitroglycerin 0.4 mg sublingual 0.4 mg sublingual TID PRN Chest 11/27/22 History tablet Pain prazosin 2 mg capsule 2 mg PO HS 11/27/22 11/27/22 History Past Med/Surg History Medical History (Updated 11/27/22 @ 04:08 by Elizabeth Chris DO) Asthma HTN (hypertension) AMI (obstructive sleep apnea) Surgical History History of aortic aneurysm repair Social History Smoking Status: Former smoker Tobacco Type: Cigarettes Hx Alcohol Use: No Hx Substance Use: No Preferred Language: Croatian Communication Ability: Effective Beliefs That Will Affect Care: None Current Living Situation: Other Current Living Situation Comment: [facility] Feels Safe at Home: Yes Assistive Devices: Oxygen - Continuous Review of Systems Review of Systems: All systems reviewed & are unremarkable except as noted in HPI & below Physical Exam Physical Exam: General: patient resting comfortably, NAD, non-toxic in appearance, AA&O x 4 Skin: warm, dry, intact, no rashes or lesions HEENT: NC/AT, PERRL, EOMI, anicteric sclera, injected conjunctiva on the left with some purulent drainage of the eye, external ear normal to inspection and nontender, nares patent, moist mucus membranes, dentition intact, no oropharyngeal lesions, neck supple, trachea midline, no LAD, no thyromegaly, no JVD Heart: +S1/S2, regular, bradycardic,no m/r/g, No reproducible chest wall pain Lungs: equal air entry bilaterally, no rales/rhonchi/wheezes Abd: +BS, soft, NT/ND, no masses/organomegaly/ascites Ext: warm, 2+ pulses in UE/LE bilaterally, no clubbing/cyanosis, edema of right lower extremity with tortuous varicosities Neuro: nonfocal, patient AA&O x 4, speech intact, no facial droop, moving all extremities on command with equal strength 5/5 Results & Data Results & Data Vital Signs (Past 12 Hours) Vital Signs Temp Pulse Resp BP Pulse Ox O2 Del Method 11/27/22 02:31 116/50 L 11/27/22 02:31 41 L 15 95 11/27/22 02:30 38 L 18 95 11/27/22 02:26 107/36 L 11/27/22 02:26 41 L 14 97 11/27/22 01:09 95 Room Air 11/27/22 02:20 36 L 14 95 11/27/22 02:10 39 L 15 96 11/27/22 02:00 46 L 18 94 11/27/22 01:50 80 23 11/27/22 01:40 44 L 18 11/27/22 01:30 18 11/27/22 01:20 44 L 19 11/27/22 01:10 38 L 21 98 11/27/22 01:03 46 L 13 11/27/22 01:02 139/56 L 11/27/22 01:03 42 L 11/27/22 00:58 36.6 C 44 L 22 134/96 94 Laboratory Results Laboratory Results WBC 5.86 K/ul (4.8-10.8) 11/27/22 01:00 RBC 3.69 M/uL (4.70-6.10) L 11/27/22 01:00 Hgb 12.0 g/dl (14.0-18.0) L 11/27/22 01:00 Hct 35.4 % (42.0-52.0) L 11/27/22 01:00 MCV 95.9 fL (80.0-100.0) 11/27/22 01:00 MCH 32.5 pg (25.0-34.0) 11/27/22 01:00 MCHC 33.9 g/dL (32.0-36.0) 11/27/22 01:00 RDW Std Deviation 48.2 fL (36.4-46.3) H 11/27/22 01:00 RDW Coeff of Yoselin 13.7 % (11.5-14.5) 11/27/22 01:00 Plt Count 143 K/uL (130-400) 11/27/22 01:00 MPV 9.0 fL (9.4-12.4) L 11/27/22 01:00 Immature Gran % (Auto) 0.3 % 11/27/22 01:00 Neut % (Auto) 62.8 % 11/27/22 01:00 Lymph % (Auto) 24.2 % 11/27/22 01:00 [place] % (Auto) 10.2 % 11/27/22 01:00 Eos % (Auto) 2.0 % 11/27/22 01:00 Baso % (Auto) 0.5 % 11/27/22 01:00 Neut # (Auto) 3.67 K/uL (1.40-6.50) 11/27/22 01:00 Lymph # (Auto) 1.42 K/uL (1.2-3.4) 11/27/22 01:00 [place] # (Auto) 0.60 K/uL (0.11-0.59) H 11/27/22 01:00 Eos # (Auto) 0.12 K/uL (0-0.50) 11/27/22 01:00 Baso # (Auto) 0.03 K/uL (0-0.2) 11/27/22 01:00 Immature Gran # (Auto) 0.02 K/uL (0.01-0.20) 11/27/22 01:00 Sodium 138 mmol/L (136-145) 11/27/22 01:00 Potassium 4.1 mmol/L (3.5-5.1) 11/27/22 01:00 Chloride 104 mmol/L (98-107) 11/27/22 01:00 Carbon Dioxide 28 mmol/L (21-32) 11/27/22 01:00 Anion Gap 6 (3-11) 11/27/22 01:00 BUN 11 mg/dl (6-23) 11/27/22 01:00 Creatinine 0.93 mg/dl (0.6-1.4) 11/27/22 01:00 Est Cr Clr Drug Dosing 133.6 ml/min 11/27/22 01:00 Est GFR ( Amer) 103.8 ml/min 11/27/22 01:00 Est GFR (Non-Af Amer) 89.5 ml/min 11/27/22 01:00 BUN/Creatinine Ratio 11.8 (10-20) 11/27/22 01:00 Glucose 85 mg/dl (70-99(Fasting)) 11/27/22 01:00 Calcium 9.0 mg/dl (8.6-10.3) 11/27/22 01:00 Magnesium 1.8 mg/dl (1.7-2.4) 11/27/22 01:00 Total Bilirubin 0.4 mg/dl (0.2-1.0) 11/27/22 01:00 AST 16 U/L (13-39) 11/27/22 01:00 ALT 13 U/L (7-52) 11/27/22 01:00 Alkaline Phosphatase 63 U/L (34-104) 11/27/22 01:00 Troponin I High Sens 4.1 pg/ml (0-20) 11/27/22 03:00 Total Protein 6.5 gm/dl (6.0-8.3) 11/27/22 01:00 Albumin 3.8 gm/dl (3.4-5.0) 11/27/22 01:00 Globulin 2.7 gm/dl (2.5-4.0) 11/27/22 01:00 Albumin/Globulin Ratio 1.4 (0.9-2) 11/27/22 01:00 Lipase 35 U/L (11-82) 11/27/22 01:00 [place] 0.2 mmol/L (0.6-1.2) L 11/27/22 01:00 SARS-CoV-2, RNA, NAAT NEGATIVE (NEGATIVE) 11/27/22 02:10 ECG Additional Comments: EKG per my interpretation was sinus bradycardia. No acute ischemic changes PG Care Time/CCT Total # of Minutes Spent Total Time Spent with Patient: Total time spent is greater than 50% in coordination of care (as documented) at patient's floor/unit and/or counseling patient: Coding Level of Care Code 51487 INT INP/OBS CARE 2/55MIN Diagnoses Left-sided chest pain R07.9 HTN (hypertension) I10 AMI (obstructive sleep apnea) G47.33
[2022-11-27] MEDS ORDERED: HYDROmorphone INJ 0.5 MG/0.5 ML SYR IV STA (04:57)
[2022-11-27] MEDS ORDERED: ALBUTEROL HFA 8 GM INHALER INH PRN (05:43)
[2022-11-27] MEDS ORDERED: OPTIRAY 320 500ml IV ONE ×2 (06:36→16:20)
--- NOTE | 2022-11-27 07:55 | CT Scan Report ---
CT ANGIOGRAPHY OF THE CHEST CLINICAL HISTORY: Chest pain, history of aortic aneurysm repair. COMPARISON STUDY: Chest CT June 22, 2022. Chest radiograph performed earlier today. TECHNIQUE: Helical axial images of the chest were obtained during arterial phase following intravenou s injection of 109 cc of Optiray 320 IV. Sagittal and coronal reconstructions were viewed as well as maximal intensity projections on an independent 3-D workstation. Automated exposure control was utili Yassets for the study. A dose lowering technique was utilized adhering to the principles of ALARA. FINDINGS: There is no thoracic aortic dissection. The caliber of the thoracic aorta is normal. There are stable postoperative findings following median sternotomy and repair of the ascending aorta. No p ericardial effusion is present. There is mild cardiomegaly. No pulmonary emboli are identified. There is no thoracic lymphadenopathy. No pneumothorax or pleural effusion is present. There is no consolid ation to suggest pneumonia. Central airways are patent. Linear densities within the lower lungs repre sent atelectasis. No acute fractures within the bony thorax are present. IMPRESSION: 1. No thoracic aortic dissection. 2. No acute findings within the chest. Stable postoperative findings, as described above. ACT 112: Negative or not required by law. Electronically signed by: Mike Bernard M.D. 11/27/2022 7:54 AM
--- NOTE | 2022-11-27 08:34 | XRay Report ---
XR chest 1V portable CLINICAL HISTORY: Chest pain, nonspecific COMPARISON STUDY: Chest CT June 22, 2022. FINDINGS: There is no pneumothorax or pleural effusion. There is no consolidation to suggest pneumoni a. There is no evidence for pulmonary edema. There are median sternotomy wires. Mild enlargement of t he cardiac silhouette is unchanged. IMPRESSION: No acute cardiopulmonary findings. No change in appearance of the chest. ACT 112: Negative or not required by law. Electronically signed by: Mike Bernard M.D. 11/27/2022 8:33 AM
[2022-11-27] MEDS: MONTELUKAST SODIUM 10 MG TABLET PO SCH (09:03)
[2022-11-27] MEDS: ATORVASTATIN 40 MG TAB PO SCH (09:03)
[2022-11-27] MEDS: ASPIRIN 81 MG ECTAB PO SCH (09:03)
[2022-11-27] MEDS: IBUPROFEN 600 MG TAB PO SCH ×2 (09:03→14:16)
[2022-11-27] MEDS: FLUTICASONE FUROATE 200MCG 14 PUFFS/INHALER INH SCH (09:04)
[2022-11-27] MEDS: ERYTHROMYCIN OP OINT 5 MG/GM 3.5 GM TUBE OP SCH ×4 (09:04→21:54)
--- NOTE | 2022-11-27 09:16 | Ultrasound Report ---
ULTRASOUND RIGHT LOWER EXTREMITY VENOUS CLINICAL HISTORY: Right lower extremity edema. COMPARISON STUDY: No priors. TECHNIQUE: Real-time, grayscale, and color Doppler sonography of the deep veins of the right lower ex tremity was performed from the inguinal crease to the calf. Compression and augmentation were utilize d. FINDINGS: There is no sonographic evidence of deep venous thrombosis identified in the right lower ex tremity. The common femoral, superficial femoral, and popliteal veins are patent and normally mikey sible. The greater saphenous vein and the profunda femoris vein at the junction with the common femor al vein are clear. The visualized calf veins are patent. Superficial venous varicosities are identifi ed in the posterior calf at the site of interest. These are patent. IMPRESSION: 1. There is no sonographic evidence of deep venous thrombosis identified in the right lower extremity . 2. Superficial venous varicosities are identified in the posterior calf at the site of interest. ACT 112: Negative or not required by law. Electronically signed by: Jean Ospina M.D. 11/27/2022 9:15 AM
[2022-11-27] MEDS: HYDROmorphone INJ 0.5 MG/0.5 ML SYR IV PRN ×2 (10:08→14:33)
--- NOTE | 2022-11-27 10:54 | Electrocardiogram Report ---
Test Reason : Blood Pressure : / mmHG Vent. Rate : 046 BPM Atrial Rate : 046 BPM P-R Int : 226 ms QRS Dur : 110 ms QT Int : 468 ms P-R-T Axes : 037 032 064 degrees QTc Int : 409 ms Poor data quality, interpretation may be adversely affected Sinus bradycardia with marked sinus arrhythmia with 1st degree A-V block Low voltage QRS Borderline ECG When compared with ECG of 22-JUN-2022 01:57, Nonspecific T wave abnormality has replaced inverted T waves in Anterior leads Confirmed by Sherwin Ortiz ([id number]) on 11/27/2022 10:54:05 AM Referred By: Michael GONSALEZ Confirmed By:Sherwin Ortiz
[2022-11-27] MEDS ORDERED: PANTOprazole 40 MG in SYRINGE 0 ML IV SCH (13:15)
--- NOTE | 2022-11-27 14:33 | History & Physical Bridge Note ---
Date of Service November 27, 2022 History & Physical Bridge Note I have examined the patient, reviewed the History & Physical and in the interval since the performance of the History & Physical I have noted the following changes of clinical significance: no changes noted Eval this afternoon in room 259-1 from the ER. Still having ongoing left sided chest pain with radiation to his left arm. He notes some similar symptoms last year but some different. He notes he had been feeling a little lightheaded/dizzy at home and some ringing in his ear. Also having some crusting/drainage from his left eye at present. He also has some right ear pain, tragus tender to palpation without obvious drainage. Denies any fevers, but was having some dry heaves. Discussed medication list w/ ibuprofen 600mg TID and he notes he didn't know it was three times a day. He notes he was at the dentist about 1-2 weeks ago for dental pain/cavity filled in the front. Not having any active drainage at present or evidence for abscess. When asked about blood in stool, he did note he had some blood about 5-6 months ago in his stool. Discussed holding further ibuprofen/NSAIDs at this time. Never had colonoscopy in the past. Does have some abdominal tenderness on exam. Ordered protonix IVP x 1 now. RN to provide dose of pain medication as well. HR currently in the 40-50s. Sinus ed. 1st degree. Never had Lyme in past, will check as well. Troponin negative x 3 thus far. ECHO done but not yet read.
[2022-11-27] MEDS ORDERED: GI COCKTAIL ED USE PO ONE (14:35)
--- NOTE | 2022-11-27 14:48 | Hospitalist Progress Note ---
Date of Service November 27, 2022 Assessment & Plan (1) Left-sided chest pain: Plan: 57-year-old male with history of prior aortic aneurysm repair, AMI and hypertension presenting with acute onset left-sided chest pain. Troponin unremarkable. EKG with no acute ischemic changes. Chest x-ray unremarkable. CTA chest negative for PE, no thoracic aortic dissection Troponin negative x 3 ECHO ordered, not yet read Sinus ed to the 40s on monitor. Does have some lightheaded/dizziness at times. Cards consulted, appreciate assistance. Also checking Lyme given 1st degree block, never had in the past reported CP 6-02/02 reported --> recent dental eval and rx for ibuprofen 600mg TID. Reported hx blood in stool about 5-6 months ago, never had c-scope in the past. --> Placed ibuprofen on hold, ordered protonix IVP daily + GI cocktail and monitor response --> Can increase protonix to BID. --> Check fecal occult blood for completeness, consider consultation w/ GI vs outpatient (never had screening c-scope in the past) Also will check iron studies given hgb slightly lower than last year at this time. 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 Patient reports compliance with his home CPAP Continue CPAP nightly (4) Epigastric discomfort: Plan: reporting L sided chest pain/discomfort however appears LUQ painful as well, suspect possible gastritis/PUD, recent NSAID use Lipase wnl at 35 on admission (elevation to 401 in Aug 2020) Will order protonix IVP daily, GI cocktail x 1 -- monitor response/consider increasing PPI to BID as above Consider GI consult vs/ outpt f/u Avoiding further NSAIDs (5) Dental cavity: Plan: recent cavity reported/pain will obtain ct soft tissue for right ear pain as well as ct facial bones for further assessment to r/o underlying infection blood cultures to be obtained (6) Right ear pain: Plan: reported -- no drainage at present (7) Edema of right lower extremity: Plan: some RLE swelling Venous doppler w/ varicosities, no DVT (8) Eye drainage: Plan: left eye drainage on erythromycin drops-- monitor response Admission and Anticipated Discharge Date Admission Date: November 27, 2022 Supervising Physician Co-Signing Physician Notes The patient was not seen by me. The chart was reviewed. Case discussed with TAVO Carmona. Agree with assessment and plan Subjective BRIDGE NOTE: ADMITTED AFTER MIDNIGHT Eval this afternoon in room 259-1 from the ER. Still having ongoing left sided chest pain with radiation to his left arm. He notes some similar symptoms last year but some different. He notes he had been feeling a little lightheaded/dizzy at home and some ringing in his ear. Also having some crusting/drainage from his left eye at present. He also has some right ear pain, tragus tender to palpation without obvious drainage. Denies any fevers, but was having some dry heaves. Discussed medication list w/ ibuprofen 600mg TID and he notes he didn't know it was three times a day. He notes he was at the dentist about 1-2 weeks ago for dental pain/cavity filled in the front. Not having any active drainage at present or evidence for abscess. When asked about blood in stool, he did note he had some blood about 5-6 months ago in his stool. Discussed holding further ibuprofen/NSAIDs at this time. Never had colonoscopy in the past. Does have some abdominal tenderness on exam. Discussed ordered protonix IVP x 1 now. RN to provide dose of pain medication as well. HR currently in the 40-50s. Sinus ed. 1st degree. Never had Lyme in past, will check as well. Troponin negative x 3 thus far. ECHO done but not yet read. Physical Exam Physical Exam: General: morbidly obese male laying in bed, guards at bedside, NAD but reporting 6-7/10 left sided chest pain HEENT: head normocephalic, poor dentition, cavity to bottom right front tooth, mmm Resp: poor effort due to body habitus, no obvious w/c, on room air 96% CV: sinus ed, no significant m/r/g, no significant murmurs, edema RLE w/ varicosities GI: +BS, obese, distended, tender to palpation left side, no guarding/ridigity ; no osborne MSK/Neuro: no focal deficit, following commands, no slurred speech/facial droop Psych: AOx3 Results & Data Results & Data Vital Signs (Past 12 Hours) Vital Signs Temp Pulse Pulse Resp BP BP Pulse Ox 11/27/22 14:05 45 L 11/27/22 13:57 36.4 C L 42 L 18 129/65 42 L 11/27/22 08:27 54 L 18 124/96 96 11/27/22 06:59 43 L 11/27/22 05:20 50 L 13 97 11/27/22 05:10 51 L 16 11/27/22 05:00 51 L 21 11/27/22 04:50 57 L 20 11/27/22 04:40 48 L 14 11/27/22 04:31 41 L 18 11/27/22 04:31 134/69 11/27/22 04:30 41 L 19 11/27/22 04:20 43 L 16 11/27/22 04:10 44 L 17 11/27/22 04:02 45 L 15 11/27/22 04:02 118/88 11/27/22 04:00 47 L 17 11/27/22 03:50 40 L 13 97 11/27/22 03:40 41 L 15 96 11/27/22 03:31 109/67 11/27/22 03:31 42 L 12 11/27/22 03:30 44 L 14 94 11/27/22 03:20 43 L 14 93 11/27/22 03:10 43 L 14 93 11/27/22 03:01 118/40 L 11/27/22 03:01 40 L 14 95 11/27/22 03:00 42 L 14 94 11/27/22 02:50 44 L 13 90 11/27/22 02:40 37 L 17 97 11/27/22 04:06 17 11/27/22 05:06 55 L O2 Del Method 11/27/22 14:05 11/27/22 13:57 Room Air 11/27/22 08:27 Room Air 11/27/22 06:59 11/27/22 05:20 11/27/22 05:10 11/27/22 05:00 11/27/22 04:50 11/27/22 04:40 11/27/22 04:31 11/27/22 04:31 11/27/22 04:30 11/27/22 04:20 11/27/22 04:10 11/27/22 04:02 11/27/22 04:02 11/27/22 04:00 11/27/22 03:50 11/27/22 03:40 11/27/22 03:31 11/27/22 03:31 11/27/22 03:30 11/27/22 03:20 11/27/22 03:10 11/27/22 03:01 11/27/22 03:01 11/27/22 03:00 11/27/22 02:50 11/27/22 02:40 11/27/22 04:06 Room Air 11/27/22 05:06 Laboratory Results 11/27/22 11/27/22 11/27/22 Range/Units 12:04 06:25 03:00 WBC (4.8-10.8) K/ul RBC (4.70-6.10) M/uL Hgb (14.0-18.0) g/dl Hct (42.0-52.0) % MCV (80.0-100.0) fL MCH (25.0-34.0) pg MCHC (32.0-36.0) g/dL RDW Std Deviation (36.4-46.3) fL RDW Coeff of Yoselin (11.5-14.5) % Plt Count (130-400) K/uL MPV (9.4-12.4) fL Immature Gran % (Auto) % Neut % (Auto) % Lymph % (Auto) % [place] % (Auto) % Eos % (Auto) % Baso % (Auto) % Neut # (Auto) (1.40-6.50) K/uL Lymph # (Auto) (1.2-3.4) K/uL [place] # (Auto) (0.11-0.59) K/uL Eos # (Auto) (0-0.50) K/uL Baso # (Auto) (0-0.2) K/uL Immature Gran # (Auto) (0.01-0.20) K/uL Sodium (136-145) mmol/L Potassium (3.5-5.1) mmol/L Chloride (98-107) mmol/L Carbon Dioxide (21-32) mmol/L Anion Gap (3-11) BUN (6-23) mg/dl Creatinine (0.6-1.4) mg/dl Est Cr Clr Drug Dosing ml/min Est GFR ( Amer) ml/min Est GFR (Non-Af Amer) ml/min BUN/Creatinine Ratio (10-20) Glucose (70-99(Fasting)) mg/dl Calcium (8.6-10.3) mg/dl Magnesium (1.7-2.4) mg/dl Total Bilirubin (0.2-1.0) mg/dl AST (13-39) U/L ALT (7-52) U/L Alkaline Phosphatase (34-104) U/L Troponin I High Sens 3.5 3.5 4.1 (0-20) pg/ml Total Protein (6.0-8.3) gm/dl Albumin (3.4-5.0) gm/dl Globulin (2.5-4.0) gm/dl Albumin/Globulin Ratio (0.9-2) Lipase (11-82) U/L [place] (0.6-1.2) mmol/L SARS-CoV-2, RNA, NAAT (NEGATIVE) 11/27/22 11/27/22 11/27/22 Range/Units 02:10 01:00 01:00 WBC (4.8-10.8) K/ul RBC (4.70-6.10) M/uL Hgb (14.0-18.0) g/dl Hct (42.0-52.0) % MCV (80.0-100.0) fL MCH (25.0-34.0) pg MCHC (32.0-36.0) g/dL RDW Std Deviation (36.4-46.3) fL RDW Coeff of Yoselin (11.5-14.5) % Plt Count (130-400) K/uL MPV (9.4-12.4) fL Immature Gran % (Auto) % Neut % (Auto) % Lymph % (Auto) % [place] % (Auto) % Eos % (Auto) % Baso % (Auto) % Neut # (Auto) (1.40-6.50) K/uL Lymph # (Auto) (1.2-3.4) K/uL [place] # (Auto) (0.11-0.59) K/uL Eos # (Auto) (0-0.50) K/uL Baso # (Auto) (0-0.2) K/uL Immature Gran # (Auto) (0.01-0.20) K/uL Sodium 138 (136-145) mmol/L Potassium 4.1 (3.5-5.1) mmol/L Chloride 104 (98-107) mmol/L Carbon Dioxide 28 (21-32) mmol/L Anion Gap 6 (3-11) BUN 11 (6-23) mg/dl Creatinine 0.93 (0.6-1.4) mg/dl Est Cr Clr Drug Dosing 133.6 ml/min Est GFR ( Amer) 103.8 ml/min Est GFR (Non-Af Amer) 89.5 ml/min BUN/Creatinine Ratio 11.8 (10-20) Glucose 85 (70-99(Fasting)) mg/dl Calcium 9.0 (8.6-10.3) mg/dl Magnesium 1.8 (1.7-2.4) mg/dl Total Bilirubin 0.4 (0.2-1.0) mg/dl AST 16 (13-39) U/L ALT 13 (7-52) U/L Alkaline Phosphatase 63 (34-104) U/L Troponin I High Sens 3.2 (0-20) pg/ml Total Protein 6.5 (6.0-8.3) gm/dl Albumin 3.8 (3.4-5.0) gm/dl Globulin 2.7 (2.5-4.0) gm/dl Albumin/Globulin Ratio 1.4 (0.9-2) Lipase 35 (11-82) U/L [place] 0.2 L (0.6-1.2) mmol/L SARS-CoV-2, RNA, NAAT NEGATIVE (NEGATIVE) 11/27/22 Range/Units 01:00 WBC 5.86 (4.8-10.8) K/ul RBC 3.69 L (4.70-6.10) M/uL Hgb 12.0 L (14.0-18.0) g/dl Hct 35.4 L (42.0-52.0) % MCV 95.9 (80.0-100.0) fL MCH 32.5 (25.0-34.0) pg MCHC 33.9 (32.0-36.0) g/dL RDW Std Deviation 48.2 H (36.4-46.3) fL RDW Coeff of Yoselin 13.7 (11.5-14.5) % Plt Count 143 (130-400) K/uL MPV 9.0 L (9.4-12.4) fL Immature Gran % (Auto) 0.3 % Neut % (Auto) 62.8 % Lymph % (Auto) 24.2 % [place] % (Auto) 10.2 % Eos % (Auto) 2.0 % Baso % (Auto) 0.5 % Neut # (Auto) 3.67 (1.40-6.50) K/uL Lymph # (Auto) 1.42 (1.2-3.4) K/uL [place] # (Auto) 0.60 H (0.11-0.59) K/uL Eos # (Auto) 0.12 (0-0.50) K/uL Baso # (Auto) 0.03 (0-0.2) K/uL Immature Gran # (Auto) 0.02 (0.01-0.20) K/uL Sodium (136-145) mmol/L Potassium (3.5-5.1) mmol/L Chloride (98-107) mmol/L Carbon Dioxide (21-32) mmol/L Anion Gap (3-11) BUN (6-23) mg/dl Creatinine (0.6-1.4) mg/dl Est Cr Clr Drug Dosing ml/min Est GFR ( Amer) ml/min Est GFR (Non-Af Amer) ml/min BUN/Creatinine Ratio (10-20) Glucose (70-99(Fasting)) mg/dl Calcium (8.6-10.3) mg/dl Magnesium (1.7-2.4) mg/dl Total Bilirubin (0.2-1.0) mg/dl AST (13-39) U/L ALT (7-52) U/L Alkaline Phosphatase (34-104) U/L Troponin I High Sens (0-20) pg/ml Total Protein (6.0-8.3) gm/dl Albumin (3.4-5.0) gm/dl Globulin (2.5-4.0) gm/dl Albumin/Globulin Ratio (0.9-2) Lipase (11-82) U/L [place] (0.6-1.2) mmol/L SARS-CoV-2, RNA, NAAT (NEGATIVE) Diagnostic Findings Chest X-Ray 11/27/22 01:09 XR chest 1V portable CLINICAL HISTORY: Chest pain, nonspecific COMPARISON STUDY: Chest CT June 22, 2022. FINDINGS: There is no pneumothorax or pleural effusion. There is no consolidation to suggest pneumonia. There is no evidence for pulmonary edema. There are median sternotomy wires. Mild enlargement of the cardiac silhouette is unchanged. IMPRESSION: No acute cardiopulmonary findings. No change in appearance of the chest. ACT 112: Negative or not required by law. Electronically signed by: Mike Bernard M.D. 11/27/2022 8:33 AM Chest CTA 11/27/22 05:43 CT ANGIOGRAPHY OF THE CHEST CLINICAL HISTORY: Chest pain, history of aortic aneurysm repair. COMPARISON STUDY: Chest CT June 22, 2022. Chest radiograph performed earlier today. TECHNIQUE: Helical axial images of the chest were obtained during arterial phase following intravenous injection of 109 cc of Optiray 320 IV. Sagittal and coronal reconstructions were viewed as well as maximal intensity projections on an independent 3-D workstation. Automated exposure control was utilized for the study. A dose lowering technique was utilized adhering to the principles of ALARA. FINDINGS: There is no thoracic aortic dissection. The caliber of the thoracic aorta is normal. There are stable postoperative findings following median sternotomy and repair of the ascending aorta. No pericardial effusion is present. There is mild cardiomegaly. No pulmonary emboli are identified. There is no thoracic lymphadenopathy. No pneumothorax or pleural effusion is present. There is no consolidation to suggest pneumonia. Central airways are patent. Linear densities within the lower lungs represent atelectasis. No acute fractures within the bony thorax are present. IMPRESSION: 1. No thoracic aortic dissection. 2. No acute findings within the chest. Stable postoperative findings, as described above. ACT 112: Negative or not required by law. Electronically signed by: Mike Bernard M.D. 11/27/2022 7:54 AM Venous Doppler Study 11/27/22 05:43 ULTRASOUND RIGHT LOWER EXTREMITY VENOUS CLINICAL HISTORY: Right lower extremity edema. COMPARISON STUDY: No priors. TECHNIQUE: Real-time, grayscale, and color Doppler sonography of the deep veins of the right lower extremity was performed from the inguinal crease to the calf. Compression and augmentation were utilized. FINDINGS: There is no sonographic evidence of deep venous thrombosis identified in the right lower extremity. The common femoral, superficial femoral, and popliteal veins are patent and normally compressible. The greater saphenous vein and the profunda femoris vein at the junction with the common femoral vein are clear. The visualized calf veins are patent. Superficial venous varicosities are identified in the posterior calf at the site of interest. These are patent. IMPRESSION: 1. There is no sonographic evidence of deep venous thrombosis identified in the right lower extremity. 2. Superficial venous varicosities are identified in the posterior calf at the site of interest. ACT 112: Negative or not required by law. Electronically signed by: Jean Ospina M.D. 11/27/2022 9:15 AM PG Care Time/CCT Total # of Minutes Spent Total Time Spent with Patient: Total time spent is greater than 50% in coordination of care (as documented) at patient's floor/unit and/or counseling patient: Coding Level of Care Code None Diagnoses Left-sided chest pain R07.9 HTN (hypertension) I10 AMI (obstructive sleep apnea) G47.33 Epigastric discomfort R10.13 Dental cavity K02.9 Right ear pain H92.01 Edema of right lower extremity R60.0 Eye drainage H57.89
[2022-11-27] MEDS ORDERED: GI Cocktail Single dose PO ONE (15:00)
[2022-11-27 15:36] LABS: Ferritin 39.5 ng/ml (8-388)
[2022-11-27 15:59] LABS: Lyme Ab IgG w/WB Rflx Negative (Negative); Lyme Ab IgM w/WB Rflx Negative (Negative)
--- NOTE | 2022-11-27 16:50 | CT Scan Report ---
CT soft tissue neck w con CT DOSE: 674.54 mGy.cm CLINICAL HISTORY: left chest pain, right sided ear pain TECHNIQUE: Multiaxial CT images of the neck were performed following the intravenous administration o f 116 cc of Optiray 320. Sagittal and coronal reformations were performed at the work station by the radiologist. A dose lowering technique was utilized adhering to the principles of ALARA. COMPARISON STUDY: Chest CT 11/27/2022. FINDINGS: The visualized brain parenchyma and orbits are unremarkable. The pterygopalatine fossa and parapharyngeal fat spaces are well-maintained. The major mucosal airways services are intact. The epi glottis and prevertebral soft tissues are normal in thickness. The thyroid gland enhances normally. T he lung apices are clear. There are poststernotomy changes. No acute fractures identified. Trace left mastoid effusion. The right mastoid air cells are clear. Small amount of fluid/thickening within the right external auditory canal. The middle ear cavities appear patent. The parotid and submandibular glands are symmetric. Scattered areas of subcutaneous soft tissue thickening within the occipital reg ion is likely chronic. No cervical lymphadenopathy. No abscess or mass identified within the neck. Th e major cervical vessels are widely patent. There is mild calcified plaque within the carotid bifurca tions. IMPRESSION: 1. No mass, lymphadenopathy, or abscess identified within the neck. 2. Small amount of fluid/thickening within the right external auditory canal. ACT 112: Negative or not required by law. Electronically signed by: Graeme Crook M.D. 11/27/2022 4:48 PM
--- NOTE | 2022-11-27 17:11 | Cardiology Consultation ---
Date of Consultation November 27, 2022 Assessment & Plan (1) Left-sided chest pain: Plan 1. Chest discomfort: I have a low index of suspicion that this is cardiac in nature. He did have an ascending aortic aneurysm repair in the past but evidently that is stable based on CT scanning. It does not appear to be coronary and that his enzymes are negative and he has had longstanding chest discomfort (at this point almost 24 hours) without electrocardiographic changes and with no response to nitroglycerin prior to admission. As far as I know he does not have coronary disease although that is possible, but I would not pursue investigation of that unless we find something suggesting ischemia. I agree with an echocardiogram to look for wall motion abnormalities and if they are present then a stress test would be indicated. History of Present Illness Reason for Consultation: Chest pain Attending Physician: Steven Swann MD History of Present Illness This is a 57-year-old incarcerated male who presents the emergency room with chest discomfort. My history and that record in the chart appear to be somewhat different. He does have a background history of a reported aortic aneurysm repair as well as sleep apnea and hypertension. He did have an echocardiogram performed March 15, 2021 which showed normal left ventricular systolic function with no regional wall motion abnormalities and borderline concentric left ventricular hypertrophy. He describes having chest discomfort occurring 2 days prior to presentation, to the point where he went to the medical office and was given nitroglycerin. He tells me he took the nitroglycerin as directed when he developed chest discomfort prior to this admission and did not help. He reports having severe left-sided as well as abdominal discomfort prompting him to be brought into the emergency room around midnight November 26, 2022. Evaluation in the emergency room included an electrocardiogram showing only nonspecific T wave abnormalities as well as sinus arrhythmia and first-degree AV block. He did have a chest x-ray done in the emergency room which showed no acute cardiopulmonary findings. He did have a CTA of the chest done in the emergency room and this also showed no acute findings. There appeared to be findings consistent with an ascending aortic repair. No pulmonary emboli were identified. High-sensitivity troponin measurements were done and are negative x3. At the time of my evaluation he was continued to have chest discomfort which she located in his prepectoral region. He was laying supine in bed and not having difficulty breathing. Allergies Allergy/AdvReac Type Severity Reaction Status Date / Time Penicillins Allergy Intermediate Hives Verified 11/27/22 01:10 bee venom protein (honey bee) Allergy Unknown Unknown Verified 11/27/22 01:10 cephalexin [From Keflex] AdvReac Intermediate Gastrointestinal Verified 11/27/22 01:10 Upset Home Medications Medication Instructions Recorded Confirmed Type aspirin 81 mg tablet,delayed 81 mg PO DAILY 02/05/21 11/27/22 History release atorvastatin 40 mg tablet 40 mg PO DAILY 02/05/21 11/27/22 History ciclesonide 80 mcg/actuation 1 puff inhalation BID 02/05/21 11/27/22 History aerosol inhaler (Alvesco) albuterol sulfate 90 mcg/actuation 2 puff inhalation QID PRN 06/22/22 11/27/22 History aerosol inhaler Shortness Of Breath lisinopril 30 mg tablet 30 mg PO DAILY 06/22/22 11/27/22 History lithium carbonate 300 mg tablet 300 mg PO HS 06/22/22 11/27/22 History trazodone 100 mg tablet 100 mg PO HS 06/22/22 11/27/22 History ibuprofen 600 mg tablet 600 mg PO TID 11/27/22 11/27/22 History ketotifen fumarate 0.025 % (0.035 1 drp OPL BID 11/27/22 11/27/22 History %) eye drops (Eye Itch Relief) montelukast 10 mg tablet 10 mg PO DAILY 11/27/22 11/27/22 History (Singulair) nitroglycerin 0.4 mg sublingual 0.4 mg sublingual TID PRN Chest 11/27/22 11/27/22 History tablet Pain prazosin 2 mg capsule 2 mg PO HS 11/27/22 11/27/22 History Patient History Medical History Asthma HTN (hypertension) AMI (obstructive sleep apnea) Surgical History History of aortic aneurysm repair Social History Smoking Status: Former smoker Tobacco Type: Cigarettes Second Hand Exposure: No; Do You Dip or Chew Tobacco: No; Tobacco Cessation Education Requested by Patient: No Hx Alcohol Use: No Hx Substance Use: No Preferred Language: Pakistani Communication Ability: Effective 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 He is laying supine in bed. HEENT: Unremarkable Neck: No jugular venous distention, carotid pulses are normal and equal bilaterally without bruits. Pulmonary: Clear to auscultation bilaterally. Cardiac: Regular rhythm with no murmur, gallop or rub. Abdomen: Soft, nontender with normal bowel sounds. Extremities: No edema. Distal pulses intact. Neurologic: No focal findings. Skin: No rash, ecchymoses or petechiae. Results & Data Vital Signs (Past 12 Hours) Vital Signs Temp Pulse Pulse Resp BP Pulse Ox O2 Del Method 11/27/22 16:37 Room Air 11/27/22 16:05 46 L 11/27/22 14:05 45 L 11/27/22 13:57 36.4 C L 42 L 18 129/65 96 Room Air 11/27/22 08:27 54 L 18 124/96 96 Room Air 11/27/22 06:59 43 L 11/27/22 05:20 50 L 13 97 11/27/22 05:10 51 L 16 Laboratory Results Cardiac Enzymes 11/27/22 11/27/22 11/27/22 Range/Units 01:00 03:00 06:25 AST 16 (13-39) U/L Troponin I High Sens 3.2 4.1 3.5 (0-20) pg/ml 11/27/22 Range/Units 12:04 AST (13-39) U/L Troponin I High Sens 3.5 (0-20) pg/ml CBC 11/27/22 Range/Units 01:00 WBC 5.86 (4.8-10.8) K/ul RBC 3.69 L (4.70-6.10) M/uL Hgb 12.0 L (14.0-18.0) g/dl Hct 35.4 L (42.0-52.0) % Plt Count 143 (130-400) K/uL Neut # (Auto) 3.67 (1.40-6.50) K/uL Lymph # (Auto) 1.42 (1.2-3.4) K/uL [place] # (Auto) 0.60 H (0.11-0.59) K/uL Eos # (Auto) 0.12 (0-0.50) K/uL Baso # (Auto) 0.03 (0-0.2) K/uL Comprehensive Metabolic Panel 11/27/22 Range/Units 01:00 Sodium 138 (136-145) mmol/L Potassium 4.1 (3.5-5.1) mmol/L Chloride 104 (98-107) mmol/L Carbon Dioxide 28 (21-32) mmol/L BUN 11 (6-23) mg/dl Creatinine 0.93 (0.6-1.4) mg/dl Glucose 85 (70-99(Fasting)) mg/dl Calcium 9.0 (8.6-10.3) mg/dl AST 16 (13-39) U/L ALT 13 (7-52) U/L Alkaline Phosphatase 63 (34-104) U/L Total Protein 6.5 (6.0-8.3) gm/dl Albumin 3.8 (3.4-5.0) gm/dl Intake and Output 11/27/22 11/27/22 11/27/22 06:59 14:59 22:59 Intake Total 100 / 100 Balance 100 / 100 Intake: IV 100 / 100 Acetaminophen 1,000 mg In 100 100 / 100 ml @ 400 mls/hr IV NOW STA Rx#: [id number] Other: Weight 156.2 kg 156.2 kg 156.2 kg Weight Measurement Method [facility] Patient Weight 11/28/22 06:59 Weight 156.2 kg Diagnostic Findings See HPI for chest x-ray and CTA and ECG findings PG Care Time/CCT Total # of Minutes Spent Total Time Spent with Patient: Total time spent is greater than 50% in coordination of care (as documented) at patient's floor/unit and/or counseling patient: Coding Level of Care Code 39480 OFFICE CONSULT LVL /40M Diagnoses Left-sided chest pain R07.9
[2022-11-27] MEDS: MoRPHine SULFATE 2 MG/ML CARP IV PRN ×2 (17:13→21:55)
--- NOTE | 2022-11-27 17:13 | XCELERA ---
[id number] \\[email or web address]\[id number]
[2022-11-27 19:10] LABS: Ferritin 40.3 ng/ml (8-388)
[2022-11-27] MEDS: traZODone HCL 100 MG TAB PO SCH (21:54)
[2022-11-27] MEDS: LITHIUM CARBONATE 300 MG TAB PO SCH (21:55)
[2022-11-27] MEDS: PRAZOSIN HCL 1 MG CAP PO SCH (21:55)
[2022-11-28] MEDS: MoRPHine SULFATE 2 MG/ML CARP IV PRN ×2 (03:55→08:33)
[2022-11-28 06:23] LABS: Hemoglobin 12.9 g/dl (14.0-18.0); Mean Corpuscular Hemoglobin 32.6 pg (25.0-34.0); Mean Corpuscular Hgb Conc 33.9 g/dL (32.0-36.0); Mean Platelet Volume 9.1 fL (9.4-12.4); Platelet Count 153 K/uL (130-400); RDW Coefficient of Variation 13.7 % (11.5-14.5); RDW Standard Deviation 48.1 fL (36.4-46.3); Red Blood Count 3.96 M/uL (4.70-6.10); White Blood Count 5.64 K/ul (4.8-10.8)
[2022-11-28 06:47] LABS: BUN Creatinine Ratio 14.6 (10-20); Calcium 8.4 mg/dl (8.6-10.3); Creatinine Clr Calc Pharmacy 129.4 ml/min; Est GFR (African American) 99.9 ml/min; Est GFR (Non-African American) 86.2 ml/min; Magnesium 1.9 mg/dl (1.7-2.4); Potassium 4.5 mmol/L (3.5-5.1)
--- NOTE | 2022-11-28 08:30 | Hospitalist Progress Note ---
Date of Service November 28, 2022 Assessment & Plan (1) Left-sided chest pain: Plan: 57-year-old male with history of prior aortic aneurysm repair, AMI and hypertension presenting with acute onset left-sided chest pain. Troponin unremarkable. EKG with no acute ischemic changes. Chest x-ray unremarkable. CTA chest negative for PE, no thoracic aortic dissection Troponin negative x 3 ECHO ordered -- Study technically adequate. Compared to prior study, RV appears dilated with reduced function 50-55%. No significant valvular disease. No pericardial effusion. Sinus ed on monitor - Lyme negative, checked given 1st degree AV block Cards consulted - felt not cardiac in nature, flat troponin without wma on ECHO and would not pursue further cardiac testing at this time GIven GI cocktail x 1 yesterday, denied improvement. 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 Discontinued further morphine given no improvement and actually developing a headache from such. Added 1gm APAP TID prn Continue to monitor for now to response to PPI therapy/topical NSAIDs. If ongoing issues can consider consultation w/ GI tomorrow but do not feel cardiac in nature at present time Stopped ibuprofen given prior reports blood in stool last summer. FECAL occult checked and was NEGATIVE, reassuring. Does not exclude underlying gastritis. Can consider adding carafate. Also could consider adding low dose amlodipine for esophageal spasms. Of note, never had c-scope in the past. Would be overdue for screening purposes (2) Epigastric discomfort: Plan: reporting L sided chest pain/discomfort however appears LUQ painful as well, suspect possible gastritis/PUD, recent NSAID use. Fecal occult negative Lipase wnl PPI IVP scheduled, converted to PO but will increase to BID given symptoms in the morning and monitor response Consider GI consult in AM if ongoing issues Avoiding further NSAIDs at this time (3) HTN (hypertension): Plan: Blood pressure borderline low on admit 116/50, currently 129/65 Lisinopril placed on hold -- consider resuming tomorrow however noted interaction w/ lisinopril and lithium to increase lithium levels/toxicity. [place] level was checked on admission and LOW (on for mood disorder, not seizure hx) BPs actually on the lower side, and will monitor. Possible need for lower dose lisinopril to prevent hypotension but also consider amlodipine + small dose diuretic therapy as well (4) AMI (obstructive sleep apnea): Plan: Chronic. Patient reports compliance with his home CPAP Continue CPAP nightly --> Also w/ hx underlying COPD/Asthma --> no wheezing on exam. CXR clear. Scheduled his HFA as reported improvement with such asked kiln charger to call RT as was not placed on CPAP last night and short of breath this morning when awakening Also increased his PPI to BID (5) Dental cavity: Plan: recent cavity reported/pain CT obtained, did note some thickening/fluid to R ear -- not able to be visualized well presently due to significant ear wax. Debrox ordered as well as ciprodex given +tenderness to palpation ear and would suspect an external otitis but will monitor on repeat eval No abscess/fluid collection/erythema of the mouth blood cx obtained for completeness given recent dental work -- WBC wnl, a febrile. cx ngtd (6) Right ear pain: Plan: reported -- no drainage at present but significant ear wax debrox ordered as well as ciprodex and will monitor on repeat eval (7) Edema of right lower extremity: Plan: some RLE swelling Venous doppler w/ varicosities, no DVT (8) Eye drainage: Plan: left eye drainage on erythromycin drops-- monitor response --> improving and will continue x 7 days Plan continued inpatient stay hopeful dc tomorrow if symptoms stable/improved consider consultation w/ GI if ongoing issues Checking UA given cloudy appearance/suprapubic discomfort noted Admission and Anticipated Discharge Date Admission Date: November 27, 2022 Supervising Physician Co-Signing Physician Notes The patient was not seen by me. The chart was reviewed. Case discussed with TAVO Carmona. Agree with assessment and plan Subjective eval this morning, continued chest pain to left chest wall. reporting voltaren helping a little but denied being reproducible on palpation Discussed possible MSK component/costochondritis given dry heeving prior to admission. having some lower suprapubic discomfort, will check UA. Reported moving bowels, small BM this morning. discussed fecal occult negative Slight headache this morning, likely from morphine use. Discussed discontinuing given no improvement in pain and likely rebound headache. Can use tylenol as needed. Reported some shortness of breath this morning and got his HFA but nothing since. No sputum production. Will check CXR for completeness, but also schedule his albuterol. Ear continued pain. Wax present/swelling. Will use debrox and ciprodex following for better penetration. Eye w/ improvement and continued on erythromycin currently. Questions/concerns addressed at this time. Physical Exam Physical Exam: General: morbidly obese male laying in bed, guards at bedside, NAD but continued reports of left sided chest pain, improving some with topical voltaren but reporting nonreproducible on exam, NAD HEENT: head normocephalic, atraumatic, thickened neck, RIGHT ear with crusting, significant ear wax, tragus tender to palpation, no active drainage, unable to visualize TM left eye with decreased erythema/drainage, appearing improved (reportedly improved as well) Resp: diminished due to body habitus but no distress, no wheezing/crackles, on room air CV: bradycardic, no significant m/r/g, trace LE edema, RLE edema w/ varicosities GI: +BS, obese, slightly distended, tender to palpation lower abdomen/suprapubic region reported, no rigidity/guarding : no osborne, urinal at bedside, yellow cloudy urine present MSK/Neuro: no focal deficit, able to follow commands, no slurred speech, CN intact grossly Psych: AOx3 Results & Data Results & Data Vital Signs (Past 12 Hours) Vital Signs Temp Pulse Pulse Pulse Resp BP Pulse Ox 11/28/22 07:56 36.4 C L 56 L 16 113/71 92 11/28/22 06:01 45 L 11/28/22 03:35 36.5 C 54 L 20 109/70 93 O2 Del Method 11/28/22 07:56 Room Air 11/28/22 06:01 11/28/22 03:35 Room Air Laboratory Results 11/28/22 11/28/22 11/28/22 Range/Units 17:10 05:48 05:48 WBC (4.8-10.8) K/ul RBC (4.70-6.10) M/uL Hgb (14.0-18.0) g/dl Hct (42.0-52.0) % MCV (80.0-100.0) fL MCH (25.0-34.0) pg MCHC (32.0-36.0) g/dL RDW Std Deviation (36.4-46.3) fL RDW Coeff of Yoselin (11.5-14.5) % Plt Count (130-400) K/uL MPV (9.4-12.4) fL Sodium 139 (136-145) mmol/L Potassium 4.5 (3.5-5.1) mmol/L Chloride 106 (98-107) mmol/L Carbon Dioxide 29 (21-32) mmol/L Anion Gap 4 (3-11) BUN 14 (6-23) mg/dl Creatinine 0.96 (0.6-1.4) mg/dl Est Cr Clr Drug Dosing 129.4 ml/min Est GFR ( Amer) 99.9 ml/min Est GFR (Non-Af Amer) 86.2 ml/min BUN/Creatinine Ratio 14.6 (10-20) Glucose 83 (70-99(Fasting)) mg/dl Calcium 8.4 L (8.6-10.3) mg/dl Magnesium 1.9 (1.7-2.4) mg/dl Iron (35-175) mcg/dl TIBC (250-450) mcg/dl Unsaturated IBC (155-355) mcg/dl Transferrin % Sat (20-50) % Ferritin (8-388) ng/ml Troponin I High Sens (0-20) pg/ml Vitamin B12 398 (180-914) pg/ml Folate 19.96 (>5.38) ng/ml Urine Color Yellow Urine Appearance Clear (Clear) Urine pH 7.0 (4.5-7.5) Ur Specific [place] 1.008 (1.000-1.030) Urine Protein Negative (Negative) Urine Glucose (UA) Negative (Negative) Urine Ketones Negative (Negative) Urine Blood Negative (Negative) Urine Nitrite Negative (Negative) Urine Bilirubin Negative (Negative) Urine Urobilinogen Negative (Negative) Ur Leukocyte Esterase Negative (Negative) Stool Occult Bld Scrn (Negative) 11/28/22 11/27/22 11/27/22 Range/Units 05:48 Unknown 18:06 WBC 5.64 (4.8-10.8) K/ul RBC 3.96 L (4.70-6.10) M/uL Hgb 12.9 L (14.0-18.0) g/dl Hct 38.0 L (42.0-52.0) % MCV 96.0 (80.0-100.0) fL MCH 32.6 (25.0-34.0) pg MCHC 33.9 (32.0-36.0) g/dL RDW Std Deviation 48.1 H (36.4-46.3) fL RDW Coeff of Yoselin 13.7 (11.5-14.5) % Plt Count 153 (130-400) K/uL MPV 9.1 L (9.4-12.4) fL Sodium (136-145) mmol/L Potassium (3.5-5.1) mmol/L Chloride (98-107) mmol/L Carbon Dioxide (21-32) mmol/L Anion Gap (3-11) BUN (6-23) mg/dl Creatinine (0.6-1.4) mg/dl Est Cr Clr Drug Dosing ml/min Est GFR ( Amer) ml/min Est GFR (Non-Af Amer) ml/min BUN/Creatinine Ratio (10-20) Glucose (70-99(Fasting)) mg/dl Calcium (8.6-10.3) mg/dl Magnesium (1.7-2.4) mg/dl Iron 104 (35-175) mcg/dl TIBC 241 L (250-450) mcg/dl Unsaturated IBC 137 L (155-355) mcg/dl Transferrin % Sat 43 (20-50) % Ferritin 40.3 (8-388) ng/ml Troponin I High Sens (0-20) pg/ml Vitamin B12 (180-914) pg/ml Folate (>5.38) ng/ml Urine Color Urine Appearance (Clear) Urine pH (4.5-7.5) Ur Specific [place] (1.000-1.030) Urine Protein (Negative) Urine Glucose (UA) (Negative) Urine Ketones (Negative) Urine Blood (Negative) Urine Nitrite (Negative) Urine Bilirubin (Negative) Urine Urobilinogen (Negative) Ur Leukocyte Esterase (Negative) Stool Occult Bld Scrn Negative (Negative) 11/27/22 Range/Units 18:06 WBC (4.8-10.8) K/ul RBC (4.70-6.10) M/uL Hgb (14.0-18.0) g/dl Hct (42.0-52.0) % MCV (80.0-100.0) fL MCH (25.0-34.0) pg MCHC (32.0-36.0) g/dL RDW Std Deviation (36.4-46.3) fL RDW Coeff of Yoselin (11.5-14.5) % Plt Count (130-400) K/uL MPV (9.4-12.4) fL Sodium (136-145) mmol/L Potassium (3.5-5.1) mmol/L Chloride (98-107) mmol/L Carbon Dioxide (21-32) mmol/L Anion Gap (3-11) BUN (6-23) mg/dl Creatinine (0.6-1.4) mg/dl Est Cr Clr Drug Dosing ml/min Est GFR ( Amer) ml/min Est GFR (Non-Af Amer) ml/min BUN/Creatinine Ratio (10-20) Glucose (70-99(Fasting)) mg/dl Calcium (8.6-10.3) mg/dl Magnesium (1.7-2.4) mg/dl Iron (35-175) mcg/dl TIBC (250-450) mcg/dl Unsaturated IBC (155-355) mcg/dl Transferrin % Sat (20-50) % Ferritin (8-388) ng/ml Troponin I High Sens 3.0 (0-20) pg/ml Vitamin B12 (180-914) pg/ml Folate (>5.38) ng/ml Urine Color Urine Appearance (Clear) Urine pH (4.5-7.5) Ur Specific [place] (1.000-1.030) Urine Protein (Negative) Urine Glucose (UA) (Negative) Urine Ketones (Negative) Urine Blood (Negative) Urine Nitrite (Negative) Urine Bilirubin (Negative) Urine Urobilinogen (Negative) Ur Leukocyte Esterase (Negative) Stool Occult Bld Scrn (Negative) Diagnostic Findings 11/27/22 ECHOCARDIOGRAM Study technically adequate. Compared to prior study, RV appears dilated with reduced function 50-55%. No significant valvular disease. No pericardial effusion. Chest X-Ray 11/28/22 14:27 XR chest 1V portable CLINICAL HISTORY: Shortness of breath. COMPARISON STUDY: Chest radiograph and chest CT November 27, 2022. FINDINGS: Median sternotomy wires are noted. Cardiomediastinal silhouette is stable. No pneumothorax or pleural effusion. There is no consolidation to suggest pneumonia. There is no significant change in appearance of the chest. IMPRESSION: No acute cardiopulmonary findings. No change in appearance of the chest. ACT 112: Negative or not required by law. Electronically signed by: Mike Bernard M.D. 11/28/2022 3:07 PM PG Care Time/CCT Total # of Minutes Spent Total Time Spent with Patient: Total time spent is greater than 50% in coordination of care (as documented) at patient's floor/unit and/or counseling patient: Coding Level of Care Code 86557 SUB INP/OBS CARE 3/50MIN Diagnoses Left-sided chest pain R07.9 Epigastric discomfort R10.13 HTN (hypertension) I10 AMI (obstructive sleep apnea) G47.33 Dental cavity K02.9 Right ear pain H92.01 Edema of right lower extremity R60.0 Eye drainage H57.89
[2022-11-28] MEDS: ERYTHROMYCIN OP OINT 5 MG/GM 3.5 GM TUBE OP SCH ×4 (08:33→21:49)
[2022-11-28] MEDS: ATORVASTATIN 40 MG TAB PO SCH (08:34)
[2022-11-28] MEDS: FLUTICASONE FUROATE 200MCG 14 PUFFS/INHALER INH SCH (08:34)
[2022-11-28] MEDS: ASPIRIN 81 MG ECTAB PO SCH (08:34)
[2022-11-28] MEDS: MONTELUKAST SODIUM 10 MG TABLET PO SCH (08:34)
[2022-11-28] MEDS ORDERED: PANTOprazole 40 MG TAB PO SCH (09:00)
[2022-11-28] MEDS: DICLOFENAC SOD 1% GEL 100 GM TUBE EXT SCH ×4 (09:45→21:49)
--- NOTE | 2022-11-28 10:38 | Cardiology Progress Note ---
Date of Service November 28, 2022 Assessment & Plan (1) Left-sided chest pain: Plan 1. Chest discomfort: I have a low index of suspicion that this is cardiac in nature. He did have an ascending aortic aneurysm repair in the past but evidently that is stable based on CT scanning. It does not appear to be coronary and that his enzymes are negative and he has had longstanding chest discomfort (at this point several days) without electrocardiographic changes and with no response to nitroglycerin prior to admission. As far as I know he does not have coronary disease although that is possible, but would probably not explain his symptoms and I would not pursue investigation at this time. Admission and Anticipated Discharge Date Admission Date: November 27, 2022 Subjective He is still complaining of chest discomfort, he locates this in his precordial area. He appears comfortable in bed, he is laying supine. Physical Exam Physical Exam: Constitutional: Alert, cooperative and in no distress. He is laying supine in bed. HEENT: Unremarkable Neck: No jugular venous distention, carotid pulses are normal and equal bilaterally without bruits. Pulmonary: Clear to auscultation bilaterally. Cardiac: Regular rhythm with no murmur, gallop or rub. Abdomen: Soft, nontender with normal bowel sounds. Extremities: No edema. Distal pulses intact. Neurologic: No focal findings. Skin: No rash, ecchymoses or petechiae. Results & Data Vital Signs (Past 12 Hours) Vital Signs Temp Pulse Pulse Pulse Resp BP Pulse Ox 11/28/22 07:56 36.4 C L 56 L 16 113/71 92 11/28/22 06:01 45 L 11/28/22 03:35 36.5 C 54 L 20 109/70 93 O2 Del Method 11/28/22 07:56 Room Air 11/28/22 06:01 11/28/22 03:35 Room Air Laboratory Results Cardiac Enzymes 11/27/22 11/27/22 Range/Units 12:04 18:06 Troponin I High Sens 3.5 3.0 (0-20) pg/ml CBC 11/28/22 Range/Units 05:48 WBC 5.64 (4.8-10.8) K/ul RBC 3.96 L (4.70-6.10) M/uL Hgb 12.9 L (14.0-18.0) g/dl Hct 38.0 L (42.0-52.0) % Plt Count 153 (130-400) K/uL Comprehensive Metabolic Panel 11/28/22 Range/Units 05:48 Sodium 139 (136-145) mmol/L Potassium 4.5 (3.5-5.1) mmol/L Chloride 106 (98-107) mmol/L Carbon Dioxide 29 (21-32) mmol/L BUN 14 (6-23) mg/dl Creatinine 0.96 (0.6-1.4) mg/dl Glucose 83 (70-99(Fasting)) mg/dl Calcium 8.4 L (8.6-10.3) mg/dl Intake and Output 11/27/22 11/28/22 11/28/22 22:59 06:59 14:59 Intake Total 480 / 580 Output Total 1726 / 1726 Balance -1246 / -1146 Intake: Oral 480 / 480 Output: Urine 1725 / 1725 # Bowel Movements Other: Weight 156.2 kg Diagnostic Findings Telemetry: Sinus rhythm with blocked premature atrial beats. An echocardiogram shows normal left ventricular size, however the right ventricle appears to be mildly dilated with mild to moderate right ventricular dysfunction. PG Care Time/CCT Total # of Minutes Spent Total Time Spent with Patient: Total time spent is greater than 50% in coordination of care (as documented) at patient's floor/unit and/or counseling patient: Coding Level of Care Code 30075 SUB INP/OBS CARE 2/35MIN Diagnoses Left-sided chest pain R07.9
[2022-11-28] MEDS: ACETAMINOPHEN 500 MG TAB PO PRN ×2 (11:11→23:16)
--- NOTE | 2022-11-28 15:08 | XRay Report ---
XR chest 1V portable CLINICAL HISTORY: Shortness of breath. COMPARISON STUDY: Chest radiograph and chest CT November 27, 2022. FINDINGS: Median sternotomy wires are noted. Cardiomediastinal silhouette is stable. No pneumothorax or pleural effusion. There is no consolidation to suggest pneumonia. There is no significant change i n appearance of the chest. IMPRESSION: No acute cardiopulmonary findings. No change in appearance of the chest. ACT 112: Negative or not required by law. Electronically signed by: Mike Bernard M.D. 11/28/2022 3:07 PM
[2022-11-28] MEDS: CARBAMIDE PEROXIDE 6.5% 15 ML BTL OT SCH ×2 (15:31→21:46)
[2022-11-28 17:27] LABS: Appearance Urine Clear (Clear); Bilirubin Urine Negative (Negative); Blood Urine Negative (Negative); Color Urine Yellow; Glucose Urine UA Negative (Negative); Ketones Urine Negative (Negative); Leukocyte Esterase Urine Negative (Negative); Nitrite Urine Negative (Negative); Protein Urine Negative (Negative); Specific Gravity Urine 1.008 (1.000-1.030); Urobilinogen Urine Negative (Negative)
[2022-11-28] MEDS ORDERED: ALUMINUM/MAGNESIUM SUSP 30 ML UDC PO PRN (17:35)
[2022-11-28] MEDS: traMADol HCL 50 MG TABLET PO PRN ×2 (18:05→22:07)
[2022-11-28] MEDS: ALBUTEROL HFA 8 GM INHALER INH SCH (19:33)
--- NOTE | 2022-11-28 21:29 | Electrocardiogram Report ---
Test Reason : Blood Pressure : / mmHG Vent. Rate : 044 BPM Atrial Rate : 044 BPM P-R Int : 216 ms QRS Dur : 104 ms QT Int : 484 ms P-R-T Axes : 043 033 069 degrees QTc Int : 413 ms Marked sinus bradycardia with 1st degree A-V block Low voltage QRS Nonspecific T wave abnormality Abnormal ECG When compared with ECG of 27-NOV-2022 00:58, No significant change was found Confirmed by Sherwin Ortiz [id number]) on 11/28/2022 9:28:32 PM Referred By: Michael SCI Confirmed By:Sherwin Ortiz
[2022-11-28] MEDS: traZODone HCL 100 MG TAB PO SCH (21:45)
[2022-11-28] MEDS: PRAZOSIN HCL 1 MG CAP PO SCH (21:45)
[2022-11-28] MEDS: PANTOprazole 40 MG TAB PO SCH (21:46)
[2022-11-28] MEDS: LITHIUM CARBONATE 300 MG TAB PO SCH (21:46)
[2022-11-28] MEDS: CIPRO 0.3%/DEXAMETHASONE 0.1% OTIC SUSP 7.5ML OTR SCH (21:47)
[2022-11-29] MEDS: traMADol HCL 50 MG TABLET PO PRN ×2 (03:38→11:23)
--- NOTE | 2022-11-29 06:01 | Emergency Department Note ---
Impression & Plan Chest pain, Bradycardia ED Provider Note CHIEF COMPLAINT: Chest pain HISTORY OF PRESENT ILLNESS: This 57-year-old male patient with past medical history of obesity, hypertension and obstructive sleep apnea presents to the emergency department with complaints of substernal chest discomfort. Patient states the pain started suddenly upon standing at 1030 this evening. He is an inmate at the [facility]. REVIEW OF SYSTEMS: A review of systems was performed with positives and perti nent negatives listed in the history of present illness. 10 systems were reviewed and are otherwise negative. ALLERGIES: see below MEDICATIONS: see below PMH: see below SOCIAL HISTORY: see below DDx: Cardiac ischemia, aortic dissection, pulmonary embolism, pneumothorax, pneumonia, pericarditis, myocarditis, esophageal rupture, GERD, cholecystitis, pancreatitis, musculoskeletal, as well as other pathologies. PHYSICAL EXAM: Vital signs reviewed. General: Chronically ill-appearing, 57-year-old male, in no significant distress. Obese HEENT: No scleral icterus, PERRLA, neck supple. Atraumatic. Cardiovascular: Bradycardic but regular rhythm, no extra sounds. Pulmonary: Clear to auscultation bilaterally, normal work of breathing. Abdomen: Soft, obese, nontender, nondistended, positive bowel sounds. Musculoskeletal: Atraumatic, minimal peripheral edema. Neurologic: Patient awake alert and oriented x 3, speech is clear Skin: Warm, dry, no rash EMERGENCY DEPARTMENT COURSE/MDM: This patient was evaluated and appeared to be in no significant distress. IV access was obtained and laboratory work was drawn. Patient was placed on the shelter monitor and noted to be in a normal sinus rhythm. He was given aspirin and nitroglycerin prior to arrival. Patient did continue with some pain upon arrival to the ED. He was medicated with 1 g of IV Tylenol for continued discomfort. Patient's EKG was reviewed and reveals no evidence of ST elevation. Laboratory work reveals a negative troponin. Patient's case was discussed with the hospitalist due to the patient's high risk profile and continued discomfort. Patient was made aware of the plan and agreed. MONITORING: An order for cardiac monitoring was placed and the patient is noted to be in a bradycardia with first-degree AV block beats per minute. RADIOLOGY: Chest x-ray to my interpretation reveals no focal lung consolidation or failure EKG: To my interpretation reveals a marked bradycardia with first-degree AV bl ock at 46 bpm. Overall low voltage. Normal ST segments. No PVC, no PAC. When compared to previous dated June 22, 2022 nonspecific T wave abnormality has replaced T wave inversions in the anterior leads. DISPOSITION: Admission Past Med/Surg History Medical History Acid reflux Asthma Encounter for pre-operative examination HTN (hypertension) Left-sided chest pain Obesity AMI (obstructive sleep apnea) Surgical History History of aortic aneurysm repair Social History Smoking Status: Former smoker Tobacco Type: Cigarettes Second Hand Exposure: No; Do You Dip or Chew Tobacco: No; Tobacco Cessation Education Requested by Patient: No Hx Alcohol Use: No Hx Substance Use: No Preferred Language: Palestinian Communication Ability: Effective Process Chemist Required: No Beliefs That Will Affect Care: None Current Living Situation: Other Current Living Situation Comment: [facility] Other Information That Helps Us Care for You: No Feels Safe at Home: Yes Safety Concerns: Feels Safe At This Time Assistive Devices: CPAP Allergies Allergies Allergy/AdvReac Type Severity Reaction Status Date / Time Penicillins Allergy Intermediate Hives Verified 11/27/22 01:10 bee venom protein (honey bee) Allergy Unknown Unknown Verified 11/27/22 01:10 cephalexin [From Keflex] AdvReac Intermediate Gastrointestinal Verified 11/27/22 01:10 Upset Home Meds Home Medications Medication Instructions Recorded Confirmed aspirin 81 mg tablet,delayed 81 mg PO DAILY 02/05/21 11/27/22 release atorvastatin 40 mg tablet 40 mg PO DAILY 02/05/21 11/27/22 ciclesonide 80 mcg/actuation 1 puff inhalation BID 02/05/21 11/27/22 aerosol inhaler (Alvesco) albuterol sulfate 90 mcg/actuation 2 puff inhalation QID PRN 06/22/22 11/27/22 aerosol inhaler Shortness Of Breath lisinopril 30 mg tablet 30 mg PO DAILY 06/22/22 11/27/22 lithium carbonate 300 mg tablet 300 mg PO HS 06/22/22 11/27/22 trazodone 100 mg tablet 100 mg PO HS 06/22/22 11/27/22 ibuprofen 600 mg tablet 600 mg PO TID 11/27/22 11/27/22 ketotifen fumarate 0.025 % (0.035 1 drp OPL BID 11/27/22 11/27/22 %) eye drops (Eye Itch Relief) montelukast 10 mg tablet 10 mg PO DAILY 11/27/22 11/27/22 (Singulair) nitroglycerin 0.4 mg sublingual 0.4 mg sublingual TID PRN Chest 11/27/22 11/27/22 tablet Pain prazosin 2 mg capsule 2 mg PO HS 11/27/22 11/27/22 Results & Data (ED) Home Medications Current Medication List: was personally reviewed by me Laboratory Data Attestation: I reviewed the patient's lab results. 11/28/22 05:48 11/28/22 05:48 Lab Results 11/27/22 11/27/22 11/27/22 Range/Units 01:00 01:00 01:00 WBC 5.86 (4.8-10.8) K/ul RBC 3.69 L (4.70-6.10) M/uL Hgb 12.0 L (14.0-18.0) g/dl Hct 35.4 L (42.0-52.0) % MCV 95.9 (80.0-100.0) fL MCH 32.5 (25.0-34.0) pg MCHC 33.9 (32.0-36.0) g/dL RDW Std Deviation 48.2 H (36.4-46.3) fL RDW Coeff of Yoselin 13.7 (11.5-14.5) % Plt Count 143 (130-400) K/uL MPV 9.0 L (9.4-12.4) fL Immature Gran % (Auto) 0.3 % Neut % (Auto) 62.8 % Lymph % (Auto) 24.2 % Isabella % (Auto) 10.2 % Eos % (Auto) 2.0 % Baso % (Auto) 0.5 % Neut # (Auto) 3.67 (1.40-6.50) K/uL Lymph # (Auto) 1.42 (1.2-3.4) K/uL Isabella # (Auto) 0.60 H (0.11-0.59) K/uL Eos # (Auto) 0.12 (0-0.50) K/uL Baso # (Auto) 0.03 (0-0.2) K/uL Immature Gran # (Auto) 0.02 (0.01-0.20) K/uL Sodium 138 (136-145) mmol/L Potassium 4.1 (3.5-5.1) mmol/L Chloride 104 (98-107) mmol/L Carbon Dioxide 28 (21-32) mmol/L Anion Gap 6 (3-11) BUN 11 (6-23) mg/dl Creatinine 0.93 (0.6-1.4) mg/dl Est Cr Clr Drug Dosing 133.6 ml/min Est GFR ( Amer) 103.8 ml/min Est GFR (Non-Af Amer) 89.5 ml/min BUN/Creatinine Ratio 11.8 (10-20) Glucose 85 (70-99(Fasting)) mg/dl Calcium 9.0 (8.6-10.3) mg/dl Magnesium 1.8 (1.7-2.4) mg/dl Iron 54 (35-175) mcg/dl TIBC 268 (250-450) mcg/dl Unsaturated IBC 214 (155-355) mcg/dl Transferrin % Sat 20 (20-50) % Ferritin 39.5 (8-388) ng/ml Total Bilirubin 0.4 (0.2-1.0) mg/dl AST 16 (13-39) U/L ALT 13 (7-52) U/L Alkaline Phosphatase 63 (34-104) U/L Total Creatine Kinase (30-223) U/L Troponin I High Sens 3.2 (0-20) pg/ml Total Protein 6.5 (6.0-8.3) gm/dl Albumin 3.8 (3.4-5.0) gm/dl Globulin 2.7 (2.5-4.0) gm/dl Albumin/Globulin Ratio 1.4 (0.9-2) Lipase 35 (11-82) U/L Vitamin B12 (180-914) pg/ml Folate (>5.38) ng/ml Urine Color Urine Appearance (Clear) Urine pH (4.5-7.5) Ur Specific [place] (1.000-1.030) Urine Protein (Negative) Urine Glucose (UA) (Negative) Urine Ketones (Negative) Urine Blood (Negative) Urine Nitrite (Negative) Urine Bilirubin (Negative) Urine Urobilinogen (Negative) Ur Leukocyte Esterase (Negative) Stool Occult Bld Scrn (Negative) [place] 0.2 L (0.6-1.2) mmol/L Lyme Disease IgG Ab (Negative) Lyme Disease IgM Ab (Negative) SARS-CoV-2, RNA, NAAT (NEGATIVE) 11/27/22 11/27/22 11/27/22 Range/Units 01:00 02:10 03:00 WBC (4.8-10.8) K/ul RBC (4.70-6.10) M/uL Hgb (14.0-18.0) g/dl Hct (42.0-52.0) % MCV (80.0-100.0) fL MCH (25.0-34.0) pg MCHC (32.0-36.0) g/dL RDW Std Deviation (36.4-46.3) fL RDW Coeff of Yoselin (11.5-14.5) % Plt Count (130-400) K/uL MPV (9.4-12.4) fL Immature Gran % (Auto) % Neut % (Auto) % Lymph % (Auto) % Isabella % (Auto) % Eos % (Auto) % Baso % (Auto) % Neut # (Auto) (1.40-6.50) K/uL Lymph # (Auto) (1.2-3.4) K/uL Isabella # (Auto) (0.11-0.59) K/uL Eos # (Auto) (0-0.50) K/uL Baso # (Auto) (0-0.2) K/uL Immature Gran # (Auto) (0.01-0.20) K/uL Sodium (136-145) mmol/L Potassium (3.5-5.1) mmol/L Chloride (98-107) mmol/L Carbon Dioxide (21-32) mmol/L Anion Gap (3-11) BUN (6-23) mg/dl Creatinine (0.6-1.4) mg/dl Est Cr Clr Drug Dosing ml/min Est GFR ( Amer) ml/min Est GFR (Non-Af Amer) ml/min BUN/Creatinine Ratio (10-20) Glucose (70-99(Fasting)) mg/dl Calcium (8.6-10.3) mg/dl Magnesium (1.7-2.4) mg/dl Iron (35-175) mcg/dl TIBC (250-450) mcg/dl Unsaturated IBC (155-355) mcg/dl Transferrin % Sat (20-50) % Ferritin (8-388) ng/ml Total Bilirubin (0.2-1.0) mg/dl AST (13-39) U/L ALT (7-52) U/L Alkaline Phosphatase (34-104) U/L Total Creatine Kinase (30-223) U/L Troponin I High Sens 4.1 (0-20) pg/ml Total Protein (6.0-8.3) gm/dl Albumin (3.4-5.0) gm/dl Globulin (2.5-4.0) gm/dl Albumin/Globulin Ratio (0.9-2) Lipase (11-82) U/L Vitamin B12 (180-914) pg/ml Folate (>5.38) ng/ml Urine Color Urine Appearance (Clear) Urine pH (4.5-7.5) Ur Specific [place] (1.000-1.030) Urine Protein (Negative) Urine Glucose (UA) (Negative) Urine Ketones (Negative) Urine Blood (Negative) Urine Nitrite (Negative) Urine Bilirubin (Negative) Urine Urobilinogen (Negative) Ur Leukocyte Esterase (Negative) Stool Occult Bld Scrn (Negative) [place] (0.6-1.2) mmol/L Lyme Disease IgG Ab Negative (Negative) Lyme Disease IgM Ab Negative (Negative) SARS-CoV-2, RNA, NAAT NEGATIVE (NEGATIVE) 11/27/22 11/27/22 11/27/22 Range/Units 06:25 12:04 18:06 WBC (4.8-10.8) K/ul RBC (4.70-6.10) M/uL Hgb (14.0-18.0) g/dl Hct (42.0-52.0) % MCV (80.0-100.0) fL MCH (25.0-34.0) pg MCHC (32.0-36.0) g/dL RDW Std Deviation (36.4-46.3) fL RDW Coeff of Yoselin (11.5-14.5) % Plt Count (130-400) K/uL MPV (9.4-12.4) fL Immature Gran % (Auto) % Neut % (Auto) % Lymph % (Auto) % Isabella % (Auto) % Eos % (Auto) % Baso % (Auto) % Neut # (Auto) (1.40-6.50) K/uL Lymph # (Auto) (1.2-3.4) K/uL Isabella # (Auto) (0.11-0.59) K/uL Eos # (Auto) (0-0.50) K/uL Baso # (Auto) (0-0.2) K/uL Immature Gran # (Auto) (0.01-0.20) K/uL Sodium (136-145) mmol/L Potassium (3.5-5.1) mmol/L Chloride (98-107) mmol/L Carbon Dioxide (21-32) mmol/L Anion Gap (3-11) BUN (6-23) mg/dl Creatinine (0.6-1.4) mg/dl Est Cr Clr Drug Dosing ml/min Est GFR ( Amer) ml/min Est GFR (Non-Af Amer) ml/min BUN/Creatinine Ratio (10-20) Glucose (70-99(Fasting)) mg/dl Calcium (8.6-10.3) mg/dl Magnesium (1.7-2.4) mg/dl Iron (35-175) mcg/dl TIBC (250-450) mcg/dl Unsaturated IBC (155-355) mcg/dl Transferrin % Sat (20-50) % Ferritin (8-388) ng/ml Total Bilirubin (0.2-1.0) mg/dl AST (13-39) U/L ALT (7-52) U/L Alkaline Phosphatase (34-104) U/L Total Creatine Kinase (30-223) U/L Troponin I High Sens 3.5 3.5 3.0 (0-20) pg/ml Total Protein (6.0-8.3) gm/dl Albumin (3.4-5.0) gm/dl Globulin (2.5-4.0) gm/dl Albumin/Globulin Ratio (0.9-2) Lipase (11-82) U/L Vitamin B12 (180-914) pg/ml Folate (>5.38) ng/ml Urine Color Urine Appearance (Clear) Urine pH (4.5-7.5) Ur Specific [place] (1.000-1.030) Urine Protein (Negative) Urine Glucose (UA) (Negative) Urine Ketones (Negative) Urine Blood (Negative) Urine Nitrite (Negative) Urine Bilirubin (Negative) Urine Urobilinogen (Negative) Ur Leukocyte Esterase (Negative) Stool Occult Bld Scrn (Negative) [place] (0.6-1.2) mmol/L Lyme Disease IgG Ab (Negative) Lyme Disease IgM Ab (Negative) SARS-CoV-2, RNA, NAAT (NEGATIVE) 11/27/22 11/27/22 11/28/22 Range/Units 18:06 Unknown 05:48 WBC 5.64 (4.8-10.8) K/ul RBC 3.96 L (4.70-6.10) M/uL Hgb 12.9 L (14.0-18.0) g/dl Hct 38.0 L (42.0-52.0) % MCV 96.0 (80.0-100.0) fL MCH 32.6 (25.0-34.0) pg MCHC 33.9 (32.0-36.0) g/dL RDW Std Deviation 48.1 H (36.4-46.3) fL RDW Coeff of Yoselin 13.7 (11.5-14.5) % Plt Count 153 (130-400) K/uL MPV 9.1 L (9.4-12.4) fL Immature Gran % (Auto) % Neut % (Auto) % Lymph % (Auto) % Isabella % (Auto) % Eos % (Auto) % Baso % (Auto) % Neut # (Auto) (1.40-6.50) K/uL Lymph # (Auto) (1.2-3.4) K/uL Isabella # (Auto) (0.11-0.59) K/uL Eos # (Auto) (0-0.50) K/uL Baso # (Auto) (0-0.2) K/uL Immature Gran # (Auto) (0.01-0.20) K/uL Sodium (136-145) mmol/L Potassium (3.5-5.1) mmol/L Chloride (98-107) mmol/L Carbon Dioxide (21-32) mmol/L Anion Gap (3-11) BUN (6-23) mg/dl Creatinine (0.6-1.4) mg/dl Est Cr Clr Drug Dosing ml/min Est GFR ( Amer) ml/min Est GFR (Non-Af Amer) ml/min BUN/Creatinine Ratio (10-20) Glucose (70-99(Fasting)) mg/dl Calcium (8.6-10.3) mg/dl Magnesium (1.7-2.4) mg/dl Iron 104 (35-175) mcg/dl TIBC 241 L (250-450) mcg/dl Unsaturated IBC 137 L (155-355) mcg/dl Transferrin % Sat 43 (20-50) % Ferritin 40.3 (8-388) ng/ml Total Bilirubin (0.2-1.0) mg/dl AST (13-39) U/L ALT (7-52) U/L Alkaline Phosphatase (34-104) U/L Total Creatine Kinase (30-223) U/L Troponin I High Sens (0-20) pg/ml Total Protein (6.0-8.3) gm/dl Albumin (3.4-5.0) gm/dl Globulin (2.5-4.0) gm/dl Albumin/Globulin Ratio (0.9-2) Lipase (11-82) U/L Vitamin B12 (180-914) pg/ml Folate (>5.38) ng/ml Urine Color Urine Appearance (Clear) Urine pH (4.5-7.5) Ur Specific [place] (1.000-1.030) Urine Protein (Negative) Urine Glucose (UA) (Negative) Urine Ketones (Negative) Urine Blood (Negative) Urine Nitrite (Negative) Urine Bilirubin (Negative) Urine Urobilinogen (Negative) Ur Leukocyte Esterase (Negative) Stool Occult Bld Scrn Negative (Negative) [place] (0.6-1.2) mmol/L Lyme Disease IgG Ab (Negative) Lyme Disease IgM Ab (Negative) SARS-CoV-2, RNA, NAAT (NEGATIVE) 11/28/22 11/28/22 11/28/22 Range/Units 05:48 05:48 17:10 WBC (4.8-10.8) K/ul RBC (4.70-6.10) M/uL Hgb (14.0-18.0) g/dl Hct (42.0-52.0) % MCV (80.0-100.0) fL MCH (25.0-34.0) pg MCHC (32.0-36.0) g/dL RDW Std Deviation (36.4-46.3) fL RDW Coeff of Yoselni (11.5-14.5) % Plt Count (130-400) K/uL MPV (9.4-12.4) fL Immature Gran % (Auto) % Neut % (Auto) % Lymph % (Auto) % Isabella % (Auto) % Eos % (Auto) % Baso % (Auto) % Neut # (Auto) (1.40-6.50) K/uL Lymph # (Auto) (1.2-3.4) K/uL Isabella # (Auto) (0.11-0.59) K/uL Eos # (Auto) (0-0.50) K/uL Baso # (Auto) (0-0.2) K/uL Immature Gran # (Auto) (0.01-0.20) K/uL Sodium 139 (136-145) mmol/L Potassium 4.5 (3.5-5.1) mmol/L Chloride 106 (98-107) mmol/L Carbon Dioxide 29 (21-32) mmol/L Anion Gap 4 (3-11) BUN 14 (6-23) mg/dl Creatinine 0.96 (0.6-1.4) mg/dl Est Cr Clr Drug Dosing 129.4 ml/min Est GFR ( Amer) 99.9 ml/min Est GFR (Non-Af Amer) 86.2 ml/min BUN/Creatinine Ratio 14.6 (10-20) Glucose 83 (70-99(Fasting)) mg/dl Calcium 8.4 L (8.6-10.3) mg/dl Magnesium 1.9 (1.7-2.4) mg/dl Iron (35-175) mcg/dl TIBC (250-450) mcg/dl Unsaturated IBC (155-355) mcg/dl Transferrin % Sat (20-50) % Ferritin (8-388) ng/ml Total Bilirubin (0.2-1.0) mg/dl AST (13-39) U/L ALT (7-52) U/L Alkaline Phosphatase (34-104) U/L Total Creatine Kinase (30-223) U/L Troponin I High Sens (0-20) pg/ml Total Protein (6.0-8.3) gm/dl Albumin (3.4-5.0) gm/dl Globulin (2.5-4.0) gm/dl Albumin/Globulin Ratio (0.9-2) Lipase (11-82) U/L Vitamin B12 398 (180-914) pg/ml Folate 19.96 (>5.38) ng/ml Urine Color Yellow Urine Appearance Clear (Clear) Urine pH 7.0 (4.5-7.5) Ur Specific [place] 1.008 (1.000-1.030) Urine Protein Negative (Negative) Urine Glucose (UA) Negative (Negative) Urine Ketones Negative (Negative) Urine Blood Negative (Negative) Urine Nitrite Negative (Negative) Urine Bilirubin Negative (Negative) Urine Urobilinogen Negative (Negative) Ur Leukocyte Esterase Negative (Negative) Stool Occult Bld Scrn (Negative) [place] (0.6-1.2) mmol/L Lyme Disease IgG Ab (Negative) Lyme Disease IgM Ab (Negative) SARS-CoV-2, RNA, NAAT (NEGATIVE) 11/29/22 Range/Units 07:37 WBC (4.8-10.8) K/ul RBC (4.70-6.10) M/uL Hgb (14.0-18.0) g/dl Hct (42.0-52.0) % MCV (80.0-100.0) fL MCH (25.0-34.0) pg MCHC (32.0-36.0) g/dL RDW Std Deviation (36.4-46.3) fL RDW Coeff of Yoselin (11.5-14.5) % Plt Count (130-400) K/uL MPV (9.4-12.4) fL Immature Gran % (Auto) % Neut % (Auto) % Lymph % (Auto) % [place] % (Auto) % Eos % (Auto) % Baso % (Auto) % Neut # (Auto) (1.40-6.50) K/uL Lymph # (Auto) (1.2-3.4) K/uL [place] # (Auto) (0.11-0.59) K/uL Eos # (Auto) (0-0.50) K/uL Baso # (Auto) (0-0.2) K/uL Immature Gran # (Auto) (0.01-0.20) K/uL Sodium 139 (136-145) mmol/L Potassium 4.2 (3.5-5.1) mmol/L Chloride 105 (98-107) mmol/L Carbon Dioxide 31 (21-32) mmol/L Anion Gap 3 (3-11) BUN 17 (6-23) mg/dl Creatinine 0.94 (0.6-1.4) mg/dl Est Cr Clr Drug Dosing 130.1 ml/min Est GFR ( Amer) 102.4 ml/min Est GFR (Non-Af Amer) 88.4 ml/min BUN/Creatinine Ratio 18.1 (10-20) Glucose 86 (70-99(Fasting)) mg/dl Calcium 8.5 L (8.6-10.3) mg/dl Magnesium 1.9 (1.7-2.4) mg/dl Iron (35-175) mcg/dl TIBC (250-450) mcg/dl Unsaturated IBC (155-355) mcg/dl Transferrin % Sat (20-50) % Ferritin (8-388) ng/ml Total Bilirubin 0.5 (0.2-1.0) mg/dl AST 14 (13-39) U/L ALT 11 (7-52) U/L Alkaline Phosphatase 59 (34-104) U/L Total Creatine Kinase 46 (30-223) U/L Troponin I High Sens (0-20) pg/ml Total Protein 6.2 (6.0-8.3) gm/dl Albumin 3.8 (3.4-5.0) gm/dl Globulin 2.4 L (2.5-4.0) gm/dl Albumin/Globulin Ratio 1.6 (0.9-2) Lipase (11-82) U/L Vitamin B12 (180-914) pg/ml Folate (>5.38) ng/ml Urine Color Urine Appearance (Clear) Urine pH (4.5-7.5) Ur Specific [place] (1.000-1.030) Urine Protein (Negative) Urine Glucose (UA) (Negative) Urine Ketones (Negative) Urine Blood (Negative) Urine Nitrite (Negative) Urine Bilirubin (Negative) Urine Urobilinogen (Negative) Ur Leukocyte Esterase (Negative) Stool Occult Bld Scrn (Negative) [place] (0.6-1.2) mmol/L Lyme Disease IgG Ab (Negative) Lyme Disease IgM Ab (Negative) SARS-CoV-2, RNA, NAAT (NEGATIVE) Administered Medications Acetaminophen (Acetaminophen 500 Mg Tab) 1,000 mg PO Q8H PRN PRN Reason: Pain Stop: 12/28/22 10:30 Last Admin: 12/01/22 12:54 Dose: 1,000 mg Documented By: Admin: 11/30/22 22:45 Dose: 1,000 mg Documented By: Admin: 11/30/22 08:02 Dose: 1,000 mg Documented By: Admin: 11/30/22 00:31 Dose: 1,000 mg Documented By: Admin: 11/29/22 16:33 Dose: 1,000 mg Documented By: Admin: 11/29/22 08:01 Dose: 1,000 mg Documented By: Admin: 11/28/22 23:16 Dose: 1,000 mg Documented By: Admin: 11/28/22 11:11 Dose: 1,000 mg Documented By: JLA Albuterol (Albuterol Hfa 8 Gm Inhaler) 2 puffs INH QIDR OLGA Stop: 12/28/22 18:59 Last Admin: 12/01/22 19:05 Dose: 2 puffs Documented By: Admin: 12/01/22 15:04 Dose: 2 puffs Documented By: [id number] Admin: 12/01/22 10:50 Dose: 2 puffs Documented By: [id number] Admin: 12/01/22 07:28 Dose: 2 puffs Documented By: [id number] Admin: 11/30/22 19:49 Dose: 2 puffs Documented By: Admin: 11/30/22 14:37 Dose: 2 puffs Documented By: Admin: 11/30/22 10:49 Dose: 2 puffs Documented By: Admin: 11/30/22 07:13 Dose: 2 puffs Documented By: Admin: 11/29/22 19:29 Dose: 2 puffs Documented By: [email or web address] Admin: 11/29/22 14:21 Dose: 2 puffs Documented By: Admin: 11/29/22 11:27 Dose: 2 puffs Documented By: Admin: 11/29/22 07:14 Dose: 2 puffs Documented By: Admin: 11/28/22 19:33 Dose: 2 puffs Documented By: ANTIONE Aspirin (Aspirin 81 Mg Ectab) 81 mg PO DAILY OLGA Stop: 12/27/22 08:59 Last Admin: 12/01/22 09:25 Dose: 81 mg Documented By: Admin: 11/30/22 08:04 Dose: 81 mg Documented By: Admin: 11/29/22 08:03 Dose: 81 mg Documented By: Admin: 11/28/22 08:34 Dose: 81 mg Documented By: Admin: 11/27/22 09:03 Dose: 81 mg Documented By: DIXIE Atorvastatin Calcium (Atorvastatin 40 Mg Tab) 40 mg PO DAILY OLGA Stop: 12/27/22 08:59 Last Admin: 12/01/22 09:25 Dose: 40 mg Documented By: Admin: 11/30/22 08:03 Dose: 40 mg Documented By: Admin: 11/29/22 08:04 Dose: 40 mg Documented By: Admin: 11/28/22 08:34 Dose: 40 mg Documented By: Admin: 11/27/22 09:03 Dose: 40 mg Documented By: DIXIE Carbamide Peroxide (Carbamide Peroxide 6.5% 15 Ml Btl) 2 drops OT BID OLGA Stop: 12/02/22 14:24 Last Admin: 12/01/22 09:26 Dose: 2 drops Documented By: Admin: 11/30/22 21:30 Dose: 2 drops Documented By: Admin: 11/30/22 08:04 Dose: 2 drops Documented By: Admin: 11/29/22 20:50 Dose: 2 drops Documented By: Admin: 11/29/22 08:04 Dose: 2 drops Documented By: Admin: 11/28/22 21:46 Dose: 2 drops Documented By: Admin: 11/28/22 15:31 Dose: 2 drops Documented By: SANJUANA Ciprofloxacin/Dexamethasone (Cipro 0.3%/Dexamethasone 0.1% Otic Susp 7.5ml) 3 drops OTR BID OLGA Stop: 12/28/22 20:59 Last Admin: 12/01/22 09:26 Dose: 3 drops Documented By: Admin: 11/30/22 21:30 Dose: 3 drops Documented By: Admin: 11/30/22 08:06 Dose: 3 drops Documented By: Admin: 11/29/22 20:52 Dose: Not Given Documented By: Admin: 11/29/22 08:02 Dose: 3 drops Documented By: Admin: 11/28/22 21:47 Dose: 3 drops Documented By: PARTHA Diclofenac Sodium (Diclofenac Sod 1% Gel 100 Gm Tube) 2 gm EXT QID [facility]; Protocol Stop: 12/28/22 08:59 Last Admin: 12/01/22 17:33 Dose: 2 gm Documented By: Admin: 12/01/22 12:54 Dose: 2 gm Documented By: Admin: 12/01/22 09:25 Dose: 2 gm Documented By: Admin: 11/30/22 21:32 Dose: 2 gm Documented By: Admin: 11/30/22 16:44 Dose: 2 gm Documented By: Admin: 11/30/22 12:45 Dose: 2 gm Documented By: Admin: 11/30/22 08:05 Dose: 2 gm Documented By: Admin: 11/29/22 20:52 Dose: 2 gm Documented By: Admin: 11/29/22 16:32 Dose: 2 gm Documented By: Admin: 11/29/22 13:11 Dose: 2 gm Documented By: Admin: 11/29/22 08:03 Dose: 2 gm Documented By: Admin: 11/28/22 21:49 Dose: 2 gm Documented By: Admin: 11/28/22 16:43 Dose: 2 gm Documented By: Admin: 11/28/22 12:17 Dose: 2 gm Documented By: Admin: 11/28/22 09:45 Dose: 2 gm Documented By: [email or web address] Erythromycin (Erythromycin Op Oint 5 Mg/Gm 3.5 Gm Tube) 5 appln OP QID [facility] Stop: 12/04/22 08:59 Last Admin: 12/01/22 17:33 Dose: 5 appln Documented By: Admin: 12/01/22 12:54 Dose: 5 appln Documented By: [email or web address] Admin: 12/01/22 09:26 Dose: 5 appln Documented By: [email or web address] Admin: 11/30/22 21:32 Dose: 5 appln Documented By: Admin: 11/30/22 16:44 Dose: 5 appln Documented By: Admin: 11/30/22 12:45 Dose: 5 appln Documented By: Admin: 11/30/22 08:05 Dose: 5 appln Documented By: Admin: 11/29/22 20:53 Dose: 5 appln Documented By: Admin: 11/29/22 16:32 Dose: 5 appln Documented By: Admin: 11/29/22 13:11 Dose: 5 appln Documented By: [email or web address] Admin: 11/29/22 08:02 Dose: 5 appln Documented By: [email or web address] Admin: 11/28/22 21:49 Dose: 5 appln Documented By: Admin: 11/28/22 16:43 Dose: 5 appln Documented By: Admin: 11/28/22 12:17 Dose: 5 appln Documented By: Admin: 11/28/22 08:33 Dose: 5 appln Documented By: Admin: 11/27/22 21:54 Dose: 5 appln Documented By: Admin: 11/27/22 17:13 Dose: 5 appln Documented By: Admin: 11/27/22 14:32 Dose: 5 appln Documented By: Admin: 11/27/22 09:04 Dose: 1 appln Documented By: DIXIE Fluticasone Furoate (Fluticasone Furoate 200mcg 14 Puffs/Inhaler) 1 puffs INH DAILY [facility] Stop: 12/27/22 08:59 Last Admin: 12/01/22 09:26 Dose: 1 puffs Documented By: Admin: 11/30/22 08:06 Dose: 1 puffs Documented By: Admin: 11/29/22 08:02 Dose: 1 puffs Documented By: Admin: 11/28/22 08:34 Dose: 1 puffs Documented By: Admin: 11/27/22 09:04 Dose: 1 puffs Documented By: DIXIE Sodium Chloride (Nss 1000ml) 1,000 mls @ 80 mls/hr IV .[id number] [facility] Stop: 12/31/22 05:59 Last Admin: 12/01/22 18:35 Dose: Not Given Documented By: Infusion: 12/01/22 18:29 Dose: 0 mls/hr Documented By: Admin: 12/01/22 05:56 Dose: 80 mls/hr Documented By: CONSTANTINE Ibuprofen (Ibuprofen 600 Mg Tab) 600 mg PO TID [facility] Stop: 12/27/22 08:59 Last Admin: 11/27/22 14:16 Dose: Not Given Documented By: Admin: 11/27/22 09:03 Dose: 600 mg Documented By: DIXIE Lisinopril (Lisinopril 10 Mg Tab) 30 mg PO QAM [facility] Stop: 12/30/22 08:59 Last Admin: 12/01/22 09:55 Dose: Not Given Documented By: Admin: 11/30/22 09:46 Dose: 30 mg Documented By: CHRISTINA [place] Carbonate ([place] Carbonate 300 Mg Tab) 300 mg PO HS [facility] Stop: 12/27/22 20:59 Last Admin: 11/30/22 21:31 Dose: 300 mg Documented By: Admin: 11/29/22 20:55 Dose: 300 mg Documented By: Admin: 11/28/22 21:46 Dose: 300 mg Documented By: Admin: 11/27/22 21:55 Dose: 300 mg Documented By: JT Montelukast Sodium (Montelukast Sodium 10 Mg Tablet) 10 mg PO DAILY [facility] Stop: 12/27/22 08:59 Last Admin: 12/01/22 09:25 Dose: 10 mg Documented By: Admin: 11/30/22 08:04 Dose: 10 mg Documented By: Admin: 11/29/22 08:03 Dose: 10 mg Documented By: Admin: 11/28/22 08:34 Dose: 10 mg Documented By: Admin: 11/27/22 09:03 Dose: 10 mg Documented By: DIXIE Ondansetron HCl (Ondansetron Inj 2 Mg/Ml 2 Ml Vial) 4 mg IV Q6H PRN PRN Reason: Nausea Stop: 12/27/22 05:42 Last Admin: 12/01/22 17:54 Dose: 4 mg Documented By: Admin: 11/30/22 22:45 Dose: 4 mg Documented By: CONSTANTINE Ondansetron HCl (Ondansetron 4 Mg Od Tab) 4 mg PO Q4H PRN PRN Reason: Nausea And Vomiting Stop: 12/29/22 11:27 Last Admin: 11/30/22 08:03 Dose: 4 mg Documented By: Admin: 11/29/22 11:37 Dose: 4 mg Documented By: LYNETTE Pantoprazole Sodium (Pantoprazole 40 Mg Tab) 40 mg PO BID OLGA Stop: 12/28/22 20:59 Last Admin: 12/01/22 09:25 Dose: 40 mg Documented By: Admin: 11/30/22 21:32 Dose: 40 mg Documented By: Admin: 11/30/22 08:03 Dose: 40 mg Documented By: Admin: 11/29/22 20:56 Dose: 40 mg Documented By: Admin: 11/29/22 08:03 Dose: 40 mg Documented By: Admin: 11/28/22 21:46 Dose: 40 mg Documented By: PARTHA Polyethylene Glycol (Polyethylene (Miralax) 17 Gm Pack) 17 gm PO BID OLGA Stop: 12/29/22 20:59 Last Admin: 12/01/22 09:26 Dose: 17 gm Documented By: Admin: 11/30/22 21:31 Dose: 17 gm Documented By: Admin: 11/30/22 08:03 Dose: 17 gm Documented By: Admin: 11/29/22 20:55 Dose: 17 gm Documented By: HEIDI Prazosin HCl (Prazosin Hcl 1 Mg Cap) 2 mg PO HS [facility] Stop: 12/27/22 20:59 Last Admin: 11/30/22 21:32 Dose: 2 mg Documented By: Admin: 11/29/22 20:55 Dose: 2 mg Documented By: Admin: 11/28/22 21:45 Dose: 2 mg Documented By: Admin: 11/27/22 21:55 Dose: 2 mg Documented By: JT Senna/Docusate Sodium (Docusate Sodium/Senna 50/8.6mg Tab) 1 tab PO QAM [facility] Stop: 12/29/22 08:59 Last Admin: 12/01/22 09:25 Dose: 1 tab Documented By: Admin: 11/30/22 08:04 Dose: 1 tab Documented By: Admin: 11/29/22 09:42 Dose: 1 tab Documented By: LYNETTE Sucralfate (Sucralfate 1 Gm Tab) 1 gm PO QID OLGA Stop: 12/29/22 16:59 Last Admin: 12/01/22 17:33 Dose: 1 gm Documented By: Admin: 12/01/22 12:54 Dose: 1 gm Documented By: Admin: 12/01/22 09:25 Dose: 1 gm Documented By: Admin: 11/30/22 21:30 Dose: 1 gm Documented By: Admin: 11/30/22 16:44 Dose: 1 gm Documented By: Admin: 11/30/22 12:45 Dose: 1 gm Documented By: Admin: 11/30/22 08:03 Dose: 1 gm Documented By: Admin: 11/29/22 20:54 Dose: 1 gm Documented By: Admin: 11/29/22 16:32 Dose: 1 gm Documented By: LYNETTE Tramadol HCl (Tramadol Hcl 50 Mg Tablet) 50 mg PO Q4H PRN PRN Reason: Pain Stop: 12/28/22 17:47 Last Admin: 11/30/22 09:09 Dose: 50 mg Documented By: Admin: 11/29/22 11:23 Dose: 50 mg Documented By: Admin: 11/29/22 03:38 Dose: 50 mg Documented By: Admin: 11/28/22 22:07 Dose: 50 mg Documented By: Admin: 11/28/22 18:05 Dose: 50 mg Documented By: SANJUANA Trazodone HCl (Trazodone Hcl 100 Mg Tab) 100 mg PO HS OLGA Stop: 12/27/22 20:59 Last Admin: 11/30/22 21:31 Dose: 100 mg Documented By: Admin: 11/29/22 20:54 Dose: 100 mg Documented By: Admin: 11/28/22 21:45 Dose: 100 mg Documented By: Admin: 11/27/22 21:54 Dose: 100 mg Documented By: JT Discontinued Medications Al Hydrox/Mg Hydrox/Simethicone 18 ml/ Lidocaine HCl 6 ml/ [employer] 1 each 0 ml PO NOW ONE Stop: 11/27/22 15:01 Last Admin: 11/27/22 17:13 Dose: 24 ml Documented By: KENDRICK Hydromorphone HCl (Hydromorphone Inj 0.5 Mg/0.5 Ml Syr) 0.25 mg IV NOW STA Stop: 11/27/22 04:58 Last Admin: 11/27/22 05:03 Dose: 0.25 mg Documented By: BONITA Hydromorphone HCl (Hydromorphone Inj 0.5 Mg/0.5 Ml Syr) 0.25 mg IV Q4H PRN PRN Reason: Pain or Agitation Stop: 12/11/22 05:42 Last Admin: 11/27/22 14:33 Dose: 0.25 mg Documented By: Admin: 11/27/22 10:08 Dose: 0.25 mg Documented By: DIXIE Acetaminophen (Ofirmev) 1,000 mg in 100 mls @ 400 mls/hr IV NOW STA Stop: 11/27/22 02:01 Last Infusion: 11/27/22 13:47 Dose: 0 mls/hr Documented By: Admin: 11/27/22 02:09 Dose: 400 mls/hr Documented By: BONITA Pantoprazole Sodium 40 mg/ (Syringe) 10 mls @ 5 mls/min IV DAILY@1100 OLGA Stop: 12/27/22 13:14 Last Admin: 11/27/22 14:32 Dose: 5 mls/min Documented By: KENDRICK Ibuprofen (Ibuprofen 600 Mg Tab) 600 mg PO NOW STA Stop: 11/30/22 11:13 Last Admin: 11/30/22 11:17 Dose: 600 mg Documented By: ANYI Ioversol (Optiray 320 500ml) 109 ml IV ONCE ONE Stop: 11/27/22 06:37 Last Admin: 11/27/22 06:37 Dose: 109 ml Documented By: HALLE Ioversol (Optiray 320 500ml) 116 ml IV ONCE ONE Stop: 11/27/22 16:21 Last Admin: 11/27/22 16:20 Dose: 116 ml Documented By: KAROLINE Morphine Sulfate (Morphine Sulfate 2 Mg/Ml Carp) 1 mg IV Q3H PRN PRN Reason: Pain Stop: 12/11/22 16:38 Last Admin: 11/28/22 08:33 Dose: 1 mg Documented By: Admin: 11/28/22 03:55 Dose: 1 mg Documented By: Admin: 11/27/22 21:55 Dose: 1 mg Documented By: Admin: 11/27/22 17:13 Dose: 1 mg Documented By: KENDRICK Pantoprazole Sodium (Pantoprazole 40 Mg Tab) 40 mg PO QAM OLGA Stop: 12/28/22 08:59 Last Admin: 11/28/22 09:45 Dose: 40 mg Documented By: SANJUANA Polyethylene Glycol (Polyethylene (Miralax) 17 Gm Pack) 17 gm PO DAILY [facility] Stop: 12/29/22 08:59 Last Admin: 11/29/22 09:42 Dose: 17 gm Documented By: LYNETTE Imaging Data Radiologist's Impression: Chest X-Ray 11/27/22 01:09 XR chest 1V portable CLINICAL HISTORY: Chest pain, nonspecific COMPARISON STUDY: Chest CT June 22, 2022. FINDINGS: There is no pneumothorax or pleural effusion. There is no consolidation to suggest pneumonia. There is no evidence for pulmonary edema. There are median sternotomy wires. Mild enlargement of the cardiac silhouette is unchanged. IMPRESSION: No acute cardiopulmonary findings. No change in appearance of the chest. ACT 112: Negative or not required by law. Electronically signed by: Mike Bernard M.D. 11/27/2022 8:33 AM Chest CTA 11/27/22 05:43 CT ANGIOGRAPHY OF THE CHEST CLINICAL HISTORY: Chest pain, history of aortic aneurysm repair. COMPARISON STUDY: Chest CT June 22, 2022. Chest radiograph performed earlier today. TECHNIQUE: Helical axial images of the chest were obtained during arterial phase following intravenous injection of 109 cc of Optiray 320 IV. Sagittal and coronal reconstructions were viewed as well as maximal intensity projections on an independent 3-D workstation. Automated exposure control was utilized for the study. A dose lowering technique was utilized adhering to the principles of ALARA. FINDINGS: There is no thoracic aortic dissection. The caliber of the thoracic aorta is normal. There are stable postoperative findings following median sternotomy and repair of the ascending aorta. No pericardial effusion is present. There is mild cardiomegaly. No pulmonary emboli are identified. There is no thoracic lymphadenopathy. No pneumothorax or pleural effusion is present. There is no consolidation to suggest pneumonia. Central airways are patent. Linear densities within the lower lungs represent atelectasis. No acute fractur es within the bony thorax are present. IMPRESSION: 1. No thoracic aortic dissection. 2. No acute findings within the chest. Stable postoperative findings, as described above. ACT 112: Negative or not required by law. Electronically signed by: Mike Bernard M.D. 11/27/2022 7:54 AM Venous Doppler Study 11/27/22 05:43 ULTRASOUND RIGHT LOWER EXTREMITY VENOUS CLINICAL HISTORY: Right lower extremity edema. COMPARISON STUDY: No priors. TECHNIQUE: Real-time, grayscale, and color Doppler sonography of the deep veins of the right lower extremity was performed from the inguinal crease to the calf. Compression and augmentation were utilized. FINDINGS: There is no sonographic evidence of deep venous thrombosis identified in the right lower extremity. The common femoral, superficial femoral, and popliteal veins are patent and normally compressible. The greater saphenous vein and the profunda femoris vein at the junction with the common femoral vein are clear. The visualized calf veins are patent. Superficial venous varicosities are identified in the posterior calf at the site of interest. These are patent. IMPRESSION: 1. There is no sonographic evidence of deep venous thrombosis identified in the right lower extremity. 2. Superficial venous varicosities are identified in the posterior calf at the site of interest. ACT 112: Negative or not required by law. Electronically signed by: Jean Ospina M.D. 11/27/2022 9:[address] 11/27/22 14:30 CT soft tissue neck w con CT DOSE: 674.54 mGy.cm CLINICAL HISTORY: left chest pain, right sided ear pain TECHNIQUE: Multiaxial CT images of the neck were performed following the intravenous administration of 116 cc of Optiray 320. Sagittal and coronal reformations were performed at the work station by the radiologist. A dose lowering technique was utilized adhering to the principles of ALARA. COMPARISON STUDY: Chest CT 11/27/2022. FINDINGS: The visualized brain parenchyma and orbits are unremarkable. The p terygopalatine fossa and parapharyngeal fat spaces are well-maintained. The major mucosal airways services are intact. The epiglottis and prevertebral soft tissues are normal in thickness. The thyroid gland enhances normally. The lung apices are clear. There are poststernotomy changes. No acute fractures identified. Trace left mastoid effusion. The right mastoid air cells are clear. Small amount of fluid/thickening within the right external auditory canal. The middle ear cavities appear patent. The parotid and submandibular glands are symmetric. Scattered areas of subcutaneous soft tissue thickening within the occipital region is likely chronic. No cervical lymphadenopathy. No abscess or mass identified within the neck. The major cervical vessels are widely patent. There is mild calcified plaque within the carotid bifurcations. IMPRESSION: 1. No mass, lymphadenopathy, or abscess identified within the neck. 2. Small amount of fluid/thickening within the right external auditory canal. ACT 112: Negative or not required by law. Electronically signed by: Graeme Crook M.D. 11/27/2022 4:48 PM Chest X-Ray 11/28/22 14:27 XR chest 1V portable CLINICAL HISTORY: Shortness of breath. COMPARISON STUDY: Chest radiograph and chest CT November 27, 2022. FINDINGS: Median sternotomy wires are noted. Cardiomediastinal silhouette is stable. No pneumothorax or pleural effusion. There is no consolidation to suggest pneumonia. There is no significant change in appearance of the chest. IMPRESSION: No acute cardiopulmonary findings. No change in appearance of the chest. ACT 112: Negative or not required by law. Electronically signed by: Mike Bernard M.D. 11/28/2022 3:07 PM Discharge Plan Visit Data Chief Complaint: Chest Pain Stated Complaint: Slow Afib ED Provider: Flory Carr Discharge Problem: Chest pain, Bradycardia Patient Disposition: Admitted As Inpatient Condition: Good Discharge Instructions Interventions: ED Discharge Assessment Last Done: 11/27/22 05:38
[2022-11-29] MEDS: ALBUTEROL HFA 8 GM INHALER INH SCH ×4 (07:14→19:29)
[2022-11-29] MEDS: ACETAMINOPHEN 500 MG TAB PO PRN ×2 (08:01→16:33)
[2022-11-29] MEDS: ERYTHROMYCIN OP OINT 5 MG/GM 3.5 GM TUBE OP SCH ×4 (08:02→20:53)
[2022-11-29] MEDS: CIPRO 0.3%/DEXAMETHASONE 0.1% OTIC SUSP 7.5ML OTR SCH ×2 (08:02→20:52)
[2022-11-29] MEDS: FLUTICASONE FUROATE 200MCG 14 PUFFS/INHALER INH SCH (08:02)
[2022-11-29] MEDS: ASPIRIN 81 MG ECTAB PO SCH (08:03)
[2022-11-29] MEDS: PANTOprazole 40 MG TAB PO SCH ×2 (08:03→20:56)
[2022-11-29] MEDS: DICLOFENAC SOD 1% GEL 100 GM TUBE EXT SCH ×4 (08:03→20:52)
[2022-11-29] MEDS: MONTELUKAST SODIUM 10 MG TABLET PO SCH (08:03)
[2022-11-29] MEDS: CARBAMIDE PEROXIDE 6.5% 15 ML BTL OT SCH ×2 (08:04→20:50)
[2022-11-29] MEDS: ATORVASTATIN 40 MG TAB PO SCH (08:04)
--- NOTE | 2022-11-29 08:13 | Hospitalist Progress Note ---
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 Does drink coffee. Recent NSAID use/dry heeves. Hgb stable. Fecal occult negative Started protonix daily but issues w/ "CP" in the morning and increased to BID and reported pain 3-4/10 w/ use of such and tramadol rather than morphine which was ineffective and gave him headaches Added carafate, GI consulted Per GI, continue current tx. Pt does have reported LLQ pain (is s/p appendectomy though) and if worsens, will plan for EGD on Thursday vs home tomorrow w/ oral therapy and outpatient follow up Continue to monitor, changed to admit Appears many ER visits for similar and prior admit sent on pepcid. Discussed w/ patient likely should be on at LEAST daily PPI but would continue BID at least 6 weeks currently, carafate 1gm QID x 10 days and then daily PPI after. Would rec f/u outpt scope if dc without need while inpatient (2) Left-sided chest pain: Plan: 57-year-old male with history of prior aortic aneurysm repair (reported CABG in 2018 [place]), AMI and hypertension presenting with acute onset left-sided chest pain. Troponin unremarkable. EKG with no acute ischemic changes. Chest x-ray unremarkable. CTA negative for PE, no dissection noted. Troponin negative x5 ECHO w/o wma. No significant valvular disease/effusion. RV dilated w/ reduced EF 50-55% Lyme negative Cards consulted, did not feel cardiac in nature, not to pursue further imaging. Can continue topical Voltaren for MSK type pain from dry heaves. Avoiding PO NSAIDs and controlled w/ tramadol 50mg Q4h and could continue such while tx above underlying reflux Could consider low dose amlodipine for spasm type pain for additional ass istance/possible esophageal spasms but will hold off for now, HRs low (3) Epigastric discomfort: Plan: as above, improving w/ PPI therapy, adding carafate and GI consulted (4) HTN (hypertension): Plan: Lisinopril on hold given lower BPs -- consider resuming tomorrow however noted interaction w/ lisinopril and lithium to increase lithium levels/toxicity. [place] level was checked on admission and LOW (on for mood disorder, not seizure hx) Consider lowering the dose of lisinopril to prevent hypotension issues vs amlodipine as above (5) AMI (obstructive sleep apnea): Plan: Chronic. Patient reports compliance with his home CPAP Continue CPAP nightly --> asked RT to place last night, did use some (6) Dental cavity: Plan: recent cavity reported/pain CT obtained, did note some thickening/fluid to R ear -- not able to be visualized well presently due to significant ear wax. Debrox ordered as well as ciprodex given +tenderness to palpation ear and would suspect an external otitis but will monitor on repeat eval No abscess/fluid collection/erythema of the mouth blood cx obtained for completeness given recent dental work -- WBC wnl, afebrile. cx ngtd (7) Right ear pain: Plan: reported -- no drainage at present but significant ear wax --> erythema/edema on exam today and will continue ciprodex -- rx at dc to complete treatment (8) Edema of right lower extremity: Plan: some RLE swelling Venous doppler w/ varicosities, no DVT ?possible site prior CABG/vein graft? (9) Eye drainage: Plan: left eye drainage on erythromycin drops----> improving and will continue x 7 days Plan continued inpatient stay changed to full admit continue PPI BID, added carafate. GI consulted monitor response, if worsening possible need EGD Thursday Admission and Anticipated Discharge Date Admission Date: November 27, 2022 Supervising Physician Co-Signing Physician Notes The patient was not seen by me. The chart was reviewed. Case discussed with TAVO Carmona. Agree with assessment and plan Subjective eval after lunch, pain currently 3-4/10 to chest/epigastric region since increasing his protonix to twice daily. discussed adding carafate for suspected underlying PUD/gastritis and recent NSAID use and patient agreeable. He does note at custodial red sauces causing increased discomfort and he tries to give this away at all chances. He does drink caffeine/coffee but states decaf. Discussed limiting. Ear pain still present -- examined since debrox and erythema/edema p resent and will continue ciprodex drops. Eye continued improvement and will continue the drops as well. No fevers/chills. shortness of breath improved since scheduling his inhaler. CXR clear, no wheezing on exam. Physical Exam Physical Exam: General: morbidly obese male laying in bed, guards at bedside, NAD but continued reports of left sided chest pain but improving to a 3-4/10 HEENT: left eye w/ improvement in erythema/drainage, pupils equal/reactive to light, right ear w/ improvement since debrox but erythema/edema to canal, ear tender to palpation Resp: diminished due to body habitus but no acute distress, no tachypnea, no audible wheezing, on room air CV: regular rhythm, bradycardic to 40-50s, no significant m/r/g, RLE edema w/ varicosities, pulses palpable GI: +BS, obese, slight distension, epigastric tender to palpation, no guarding/rigidity, reporting RLQ tenderness but no grimacing on exam : no osborne, urinal at bedside MSK/Neuro: no focal deficit, strength intact bilaterally Psych: AOx3 Results & Data Results & Data Vital Signs (Past 12 Hours) Vital Signs Temp Pulse Pulse Resp BP Pulse Ox O2 Del Method 11/29/22 07:47 Room Air 11/29/22 07:23 48 L 11/29/22 07:14 77 16 95 Room Air 11/29/22 07:12 46 L 18 108/54 L 94 Room Air 11/29/22 03:02 36.7 C 55 L 18 105/67 92 Room Air 11/28/22 22:01 54 L 11/29/22 01:26 Room Air 11/28/22 23:06 36.4 C L 55 L 20 116/76 90 Room Air 11/28/22 22:59 62 15 96 FiO2 11/29/22 07:47 11/29/22 07:23 11/29/22 07:14 11/29/22 07:12 11/29/22 03:02 11/28/22 22:01 11/29/22 01:26 11/28/22 23:06 11/28/22 22:59 21 Laboratory Results 11/29/22 11/28/22 Range/Units 07:37 17:10 Sodium 139 (136-145) mmol/L Potassium 4.2 (3.5-5.1) mmol/L Chloride 105 (98-107) mmol/L Carbon Dioxide 31 (21-32) mmol/L Anion Gap 3 (3-11) BUN 17 (6-23) mg/dl Creatinine 0.94 (0.6-1.4) mg/dl Est Cr Clr Drug Dosing 130.1 ml/min Est GFR ( Amer) 102.4 ml/min Est GFR (Non-Af Amer) 88.4 ml/min BUN/Creatinine Ratio 18.1 (10-20) Glucose 86 (70-99(Fasting)) mg/dl Calcium 8.5 L (8.6-10.3) mg/dl Magnesium 1.9 (1.7-2.4) mg/dl Total Bilirubin 0.5 (0.2-1.0) mg/dl AST 14 (13-39) U/L ALT 11 (7-52) U/L Alkaline Phosphatase 59 (34-104) U/L Total Creatine Kinase 46 (30-223) U/L Total Protein 6.2 (6.0-8.3) gm/dl Albumin 3.8 (3.4-5.0) gm/dl Globulin 2.4 L (2.5-4.0) gm/dl Albumin/Globulin Ratio 1.6 (0.9-2) Urine Color Yellow Urine Appearance Clear (Clear) Urine pH 7.0 (4.5-7.5) Ur Specific [place] 1.008 (1.000-1.030) Urine Protein Negative (Negative) Urine Glucose (UA) Negative (Negative) Urine Ketones Negative (Negative) Urine Blood Negative (Negative) Urine Nitrite Negative (Negative) Urine Bilirubin Negative (Negative) Urine Urobilinogen Negative (Negative) Ur Leukocyte Esterase Negative (Negative) PG Care Time/CCT Total # of Minutes Spent Total Time Spent with Patient: Total time spent is greater than 50% in coordination of care (as documented) at patient's floor/unit and/or counseling patient: Coding Level of Care Code 88098 SUB INP/OBS CARE 3/50MIN Diagnoses Acid reflux K21.9 Left-sided chest pain R07.9 Epigastric discomfort R10.13 HTN (hypertension) I10 AMI (obstructive sleep apnea) G47.33 Dental cavity K02.9 Right ear pain H92.01 Edema of right lower extremity R60.0 Eye drainage H57.89
[2022-11-29 08:22] LABS: Albumin Globulin Ratio 1.6 (0.9-2); Albumin Level 3.8 gm/dl (3.4-5.0); BUN Creatinine Ratio 18.1 (10-20); Bilirubin,Total 0.5 mg/dl (0.2-1.0); Calcium 8.5 mg/dl (8.6-10.3); Creatinine Clr Calc Pharmacy 130.1 ml/min; Est GFR (African American) 102.4 ml/min; Est GFR (Non-African American) 88.4 ml/min; Globulin 2.4 gm/dl (2.5-4.0); Magnesium 1.9 mg/dl (1.7-2.4); Potassium 4.2 mmol/L (3.5-5.1); Total Protein 6.2 gm/dl (6.0-8.3)
[2022-11-29] MEDS ORDERED: POLYETHYLENE (MIRALAX) 17 GM PACK PO SCH (09:00)
[2022-11-29] MEDS: DOCUSATE SODIUM/SENNA 50/8.6MG TAB PO SCH (09:42)
[2022-11-29] MEDS: ONDANSETRON INJ 2 MG/ML 2 ML VIAL IV PRN (11:23)
[2022-11-29] MEDS: ONDANSETRON 4 MG OD TAB PO PRN (11:37)
--- NOTE | 2022-11-29 15:09 | Gastrointestinal Consultation ---
Date of Consultation November 29, 2022 Assessment & Plan (1) Epigastric discomfort: He has had "abrupt" onset of right sided abdominal pain and he points to his right lower abdomen. This was associated with vomiting. However the pain is much better after medication and he was able to eat lunch without issue. He is tender in the right lower abdomen though. I would continue treatment with meds as prescribed. If continues to improve could be discharged on meds. If he worsens we will plan EGD History of Present Illness Reason for Consultation: abdominal pain Attending Physician: Steven Swann MD History of Present Illness 57 year old inmate admitted with left sided chest pain. This morning he tells me he woke with right sided abdominal pain and vomiting. He has since been given PPI and carafate and feels better. Able to eat lunch without issue. He says he has never had this pain before and it seems not connected to his left sided chest pain he came in with. He has never had any testing done on his stomach. He complains of a little constipation since admit. Allergies Allergy/AdvReac Type Severity Reaction Status Date / Time Penicillins Allergy Intermediate Hives Verified 11/27/22 01:10 bee venom protein (honey bee) Allergy Unknown Unknown Verified 11/27/22 01:10 cephalexin [From Keflex] AdvReac Intermediate Gastrointestinal Verified 11/27/22 01:10 Upset Home Medications Medication Instructions Recorded Confirmed Type aspirin 81 mg tablet,delayed 81 mg PO DAILY 02/05/21 11/27/22 History release atorvastatin 40 mg tablet 40 mg PO DAILY 02/05/21 11/27/22 History ciclesonide 80 mcg/actuation 1 puff inhalation BID 02/05/21 11/27/22 History aerosol inhaler (Alvesco) albuterol sulfate 90 mcg/actuation 2 puff inhalation QID PRN 06/22/22 11/27/22 History aerosol inhaler Shortness Of Breath lisinopril 30 mg tablet 30 mg PO DAILY 06/22/22 11/27/22 History lithium carbonate 300 mg tablet 300 mg PO HS 06/22/22 11/27/22 History trazodone 100 mg tablet 100 mg PO HS 06/22/22 11/27/22 History ibuprofen 600 mg tablet 600 mg PO TID 11/27/22 11/27/22 History ketotifen fumarate 0.025 % (0.035 1 drp OPL BID 11/27/22 11/27/22 History %) eye drops (Eye Itch Relief) montelukast 10 mg tablet 10 mg PO DAILY 11/27/22 11/27/22 History (Singulair) nitroglycerin 0.4 mg sublingual 0.4 mg sublingual TID PRN Chest 11/27/22 11/27/22 History tablet Pain prazosin 2 mg capsule 2 mg PO HS 11/27/22 11/27/22 History Patient History Medical History Asthma HTN (hypertension) AMI (obstructive sleep apnea) Surgical History History of aortic aneurysm repair Social History Smoking Status: Former smoker Tobacco Type: Cigarettes Second Hand Exposure: No; Do You Dip or Chew Tobacco: No; Tobacco Cessation Education Requested by Patient: No Hx Alcohol Use: No Hx Substance Use: No Preferred Language: Macedonian Communication Ability: Effective Water Resources Engineer Required: No Beliefs That Will Affect Care: None Current Living Situation: Other Current Living Situation Comment: [facility] Other Information That Helps Us Care for You: No Feels Safe at Home: Yes Safety Concerns: Feels Safe At This Time Assistive Devices: CPAP Review of Systems Review of Systems: All systems reviewed & are unremarkable except as noted in HPI & below Physical Exam Constitutional: WD/WN, vitals as above + obese; no acute distress Eyes: PERRL, conjunctivae normal, anicteric sclerae ENMT: external ear and nose normal, oropharynx normal Neck: trachea midline, no thyromegaly Respiratory: normal respiratory effort, lungs clear to auscultation Cardiovascular: RRR, no murmur, no edema Gastrointestinal (Abdomen): normal bowel sounds, soft, nontender, no hepatosplenomegaly Musculoskeletal: Extremities: no cyanosis and no clubbing Skin: no rashes, warm and dry Neurologic: PERRL, EOMI, accommodation nl, no face palsy, no dysarthria Psychiatric: Orientation: alert and oriented x 3 Results & Data Vital Signs (Past 12 Hours) Vital Signs Temp Pulse Pulse Resp BP Pulse Ox O2 Del Method 11/29/22 14:21 48 L 16 92 Room Air 11/29/22 11:52 36.5 C 51 L 18 100/63 93 Room Air 11/29/22 11:27 46 L 18 95 Room Air 11/29/22 07:47 Room Air 11/29/22 07:23 48 L 11/29/22 07:14 77 16 95 Room Air 11/29/22 07:12 46 L 18 108/54 L 94 Room Air Laboratory Results 11/29/22 11/28/22 Range/Units 07:37 17:10 Sodium 139 (136-145) mmol/L Potassium 4.2 (3.5-5.1) mmol/L Chloride 105 (98-107) mmol/L Carbon Dioxide 31 (21-32) mmol/L Anion Gap 3 (3-11) BUN 17 (6-23) mg/dl Creatinine 0.94 (0.6-1.4) mg/dl Est Cr Clr Drug Dosing 130.1 ml/min Est GFR ( Amer) 102.4 ml/min Est GFR (Non-Af Amer) 88.4 ml/min BUN/Creatinine Ratio 18.1 (10-20) Glucose 86 (70-99(Fasting)) mg/dl Calcium 8.5 L (8.6-10.3) mg/dl Magnesium 1.9 (1.7-2.4) mg/dl Total Bilirubin 0.5 (0.2-1.0) mg/dl AST 14 (13-39) U/L ALT 11 (7-52) U/L Alkaline Phosphatase 59 (34-104) U/L Total Creatine Kinase 46 (30-223) U/L Total Protein 6.2 (6.0-8.3) gm/dl Albumin 3.8 (3.4-5.0) gm/dl Globulin 2.4 L (2.5-4.0) gm/dl Albumin/Globulin Ratio 1.6 (0.9-2) Urine Color Yellow Urine Appearance Clear (Clear) Urine pH 7.0 (4.5-7.5) Ur Specific [place] 1.008 (1.000-1.030) Urine Protein Negative (Negative) Urine Glucose (UA) Negative (Negative) Urine Ketones Negative (Negative) Urine Blood Negative (Negative) Urine Nitrite Negative (Negative) Urine Bilirubin Negative (Negative) Urine Urobilinogen Negative (Negative) Ur Leukocyte Esterase Negative (Negative) Diagnostic Findings Chest CTA 11/27/22 05:43 CT ANGIOGRAPHY OF THE CHEST CLINICAL HISTORY: Chest pain, history of aortic aneurysm repair. COMPARISON STUDY: Chest CT June 22, 2022. Chest radiograph performed earlier today. TECHNIQUE: Helical axial images of the chest were obtained during arterial phase following intravenous injection of 109 cc of Optiray 320 IV. Sagittal and coronal reconstructions were viewed as well as maximal intensity projections on an independent 3-D workstation. Automated exposure control was utilized for the study. A dose lowering technique was utilized adhering to the principles of ALA RA. FINDINGS: There is no thoracic aortic dissection. The caliber of the thoracic aorta is normal. There are stable postoperative findings following median sternotomy and repair of the ascending aorta. No pericardial effusion is present. There is mild cardiomegaly. No pulmonary emboli are identified. There is no thoracic lymphadenopathy. No pneumothorax or pleural effusion is present. There is no consolidation to suggest pneumonia. Central airways are patent. Linear densities within the lower lungs represent atelectasis. No acute fractures within the bony thorax are present. IMPRESSION: 1. No thoracic aortic dissection. 2. No acute findings within the chest. Stable postoperative findings, as described above. ACT 112: Negative or not required by law. Electronically signed by: Mike Bernard M.D. 11/27/2022 7:54 AM Venous Doppler Study 11/27/22 05:43 ULTRASOUND RIGHT LOWER EXTREMITY VENOUS CLINICAL HISTORY: Right lower extremity edema. COMPARISON STUDY: No priors. TECHNIQUE: Real-time, grayscale, and color Doppler sonography of the deep veins of the right lower extremity was performed from the inguinal crease to the calf. Compression and augmentation were utilized. FINDINGS: There is no sonographic evidence of deep venous thrombosis identified in the right lower extremity. The common femoral, superficial femoral, and popliteal veins are patent and normally compressible. The greater saphenous vein and the profunda femoris vein at the junction with the common femoral vein are clear. The visualized calf veins are patent. Superficial venous varicosities are identified in the posterior calf at the site of interest. These are patent. IMPRESSION: 1. There is no sonographic evidence of deep venous thrombosis identified in the right lower extremity. 2. Superficial venous varicosities are identified in the posterior calf at the site of interest. ACT 112: Negative or not required by law. Electronically signed by: Jean Ospina M.D. 11/27/2022 9:[address] Tissue Neck [address] 11/27/22 14:30 CT soft tissue neck w con CT DOSE: 674.54 mGy.cm CLINICAL HISTORY: left chest pain, right sided ear pain TECHNIQUE: Multiaxial CT images of the neck were performed following the intravenous administration of 116 cc of Optiray 320. Sagittal and coronal reformations were performed at the work station by the radiologist. A dose lowering technique was utilized adhering to the principles of ALARA. COMPARISON STUDY: Chest CT 11/27/2022. FINDINGS: The visualized brain parenchyma and orbits are unremarkable. The pterygopalatine fossa and parapharyngeal fat spaces are well-maintained. The major mucosal airways services are intact. The epiglottis and prevertebral soft tissues are normal in thickness. The thyroid gland enhances normally. The lung apices are clear. There are poststernotomy changes. No acute fractures identified. Trace left mastoid effusion. The right mastoid air cells are clear. Small amount of fluid/thickening within the right external auditory canal. The middle ear cavities appear patent. The parotid and submandibular glands are symmetric. Scattered areas of subcutaneous soft tissue thickening within the occipital region is likely chronic. No cervical lymphadenopathy. No abscess or mass identified within the neck. The major cervical vessels are widely patent. There is mild calcified plaque within the carotid bifurcations. IMPRESSION: 1. No mass, lymphadenopathy, or abscess identified within the neck. 2. Small amount of fluid/thickening within the right external auditory canal. ACT 112: Negative or not required by law. Electronically signed by: Graeme Crook M.D. 11/27/2022 4:48 PM Chest X-Ray 11/28/22 14:27 XR chest 1V portable CLINICAL HISTORY: Shortness of breath. COMPARISON STUDY: Chest radiograph and chest CT November 27, 2022. FINDINGS: Median sternotomy wires are noted. Cardiomediastinal silhouette is stable. No pneumothorax or pleural effusion. There is no consolidation to suggest pneumonia. There is no significant change in appearance of the chest. IMPRESSION: No acute cardiopulmonary findings. No change in appearance of the chest. ACT 112: Negative or not required by law. Electronically signed by: Mike Bernard M.D. 11/28/2022 3:07 PM
[2022-11-29] MEDS: SUCRALFATE 1 GM TAB PO SCH ×2 (16:32→20:54)
[2022-11-29] MEDS: traZODone HCL 100 MG TAB PO SCH (20:54)
[2022-11-29] MEDS: LITHIUM CARBONATE 300 MG TAB PO SCH (20:55)
[2022-11-29] MEDS: POLYETHYLENE (MIRALAX) 17 GM PACK PO SCH (20:55)
[2022-11-29] MEDS: PRAZOSIN HCL 1 MG CAP PO SCH (20:55)
[2022-11-30] MEDS: ACETAMINOPHEN 500 MG TAB PO PRN ×3 (00:31→22:45)
[2022-11-30] MEDS: ALBUTEROL HFA 8 GM INHALER INH SCH ×4 (07:13→19:49)
--- NOTE | 2022-11-30 07:55 | Hospitalist Progress Note ---
Date of Service November 30, 2022 Assessment & Plan (1) Acid reflux: Plan: admitted for CP, but suspected GI related (see below for CP r/o) He reports issues w/ sauces/pasta/pizza at skilled nursing. Does drink coffee. Recent NSAID use/dry heeves. Hgb stable. Fecal occult negative Started protonix daily but issues w/ "CP" in the morning and increased to BID and reported pain 3-4/10 w/ use of such and tramadol rather than morphine which was ineffective and gave him headaches Added carafate, GI consulted Per GI, continue current tx. Pt does have reported LLQ pain (is s/p appendectomy though) and if worsens, will plan for EGD on Thursday vs home tomorrow w/ oral therapy and outpatient follow up Appears many ER visits for similar and prior admit sent on pepcid. Discussed w/ patient likely should be on at LEAST daily PPI but would continue BID at least 6 weeks currently, carafate 1gm QID x 10 days and then daily PPI after. Would rec f/u outpt scope if dc without need while inpatient. Will make NPO at midnight incase of EGD for tomorrow per GI ?if underlying H.pylori given ongoing issues/nsaid use (2) Left-sided chest pain: Plan: 57-year-old male with history of prior aortic aneurysm repair (reported CABG in 2018 [place]), AMI and hypertension presenting with acute onset left-sided chest pain. Troponin unremarkable. EKG with no acute ischemic changes. Chest x-ray unremarkable. CTA negative for PE, no dissection noted. Troponin negative x5 ECHO w/o wma. No significant valvular disease/effusion. RV dilated w/ reduced EF 50-55% Lyme negative Cards consulted, did not feel cardiac in nature, not to pursue further imaging. Can continue topical Voltaren for MSK type pain from dry heaves. Avoiding PO NSAIDs and controlled w/ tramadol 50mg Q4h and could continue such while tx above underlying reflux Could consider low dose amlodipine for spasm type pain for additional assistance/possible esophageal spasms but will hold off for now, HRs low (3) Epigastric discomfort: Plan: as above, improving w/ PPI therapy, added Carafate and GI consulted NPO at midnight (4) HTN (hypertension): Plan: Lisinopril on hold given lower BPs -- consider resuming tomorrow however noted interaction w/ lisinopril and lithium to increase lithium levels/toxicity. [place] level was checked on admission and LOW (on for mood disorder, not seizure hx) Consider lowering the dose of lisinopril to prevent hypotension issues vs amlodipine as above (5) AMI (obstructive sleep apnea): Plan: Chronic. Patient reports compliance with his home CPAP Continue CPAP nightly --> asked RT to place last night, did use some (6) Dental cavity: Plan: recent cavity reported/pain CT obtained, did note some thickening/fluid to R ear -- not able to be visualized well presently due to significant ear wax. Debrox ordered as well as ciprodex given +tenderness to palpation ear and would suspect an external otitis but will monitor on repeat eval No abscess/fluid collection/erythema of the mouth blood cx obtained for completeness given recent dental work -- WBC wnl Remains afebrile, blood cx ngtd (7) Right ear pain: Plan: reported -- no drainage at present but significant ear wax --> erythema/edema on exam and will continue ciprodex -- rx at dc to complete treatment (8) Edema of right lower extremity: Plan: some RLE swelling Venous doppler w/ varicosities, no DVT (9) Eye drainage: Plan: left eye drainage on erythromycin drops----> improving and will continue x 7 days Plan continued inpatient stay continue PPI BID, carafate. GI following NPO at midnight for possible c-scope for tomorrow Admission and Anticipated Discharge Date Admission Date: November 29, 2022 Supervising Physician Co-Signing Physician Notes The patient was not seen by me. The chart was reviewed. Case discussed with TAVO Carmona. Agree with assessment and plan. Hopefully home tomorrow, December 01 Subjective eval this morning, did get orange w/ breakfast but given back. stating pain improving but still present. discussed continuing to monitor overnight but if ongoing issues given long standing history GI to consider EGD tomorrow. Eye/ear pain improving. Moving his bowels but stated small amounts. Guards going to get up/ambulating to assist with continued bowel movements. No blood noted. Physical Exam Physical Exam: General: morbidly obese male laying in bed, guards at bedside, NAD HEENT: left eye w/ improvement in erythema/drainage, pupils equal/reactive to light, right ear w/ improvement since debrox but erythema/edema to canal (IMPROVING) ear tender to palpation externally reported Resp: diminished due to body habitus but no acute distress, no tachypnea, no audible wheezing, on room air 98% CV: regular rhythm, bradycardic to 50s, no significant m/r/g, RLE edema w/ varicosities, pulses palpable GI: +BS, obese, slight distension, epigastric tender to palpation, no guarding/rigidity : no osborne, urinal at bedside MSK/Neuro: no focal deficit, strength intact bilaterally Psych: AOx3 Results & Data Results & Data Vital Signs (Past 12 Hours) Vital Signs Temp Pulse Pulse Resp BP Pulse Ox O2 Del Method 11/30/22 07:19 36.0 C L 48 L 18 130/61 91 Room Air 11/30/22 07:17 47 L 11/30/22 07:14 49 L 16 95 Room Air 11/30/22 03:13 36.8 C 47 L 16 125/79 98 Room Air 11/29/22 23:03 63 11/29/22 22:12 36.5 C 47 L 18 127/81 93 Room Air 11/29/22 21:30 Room Air Laboratory Results 11/30/22 Range/Units 08:07 Sodium 137 (136-145) mmol/L Potassium 4.2 (3.5-5.1) mmol/L Chloride 103 (98-107) mmol/L Carbon Dioxide 30 (21-32) mmol/L Anion Gap 4 (3-11) BUN 16 (6-23) mg/dl Creatinine 0.84 (0.6-1.4) mg/dl Est Cr Clr Drug Dosing 144.1 ml/min Est GFR ( Amer) 111.1 ml/min Est GFR (Non-Af Amer) 95.8 ml/min BUN/Creatinine Ratio 19.0 (10-20) Glucose 87 (70-99(Fasting)) mg/dl Calcium 8.7 (8.6-10.3) mg/dl Magnesium 1.9 (1.7-2.4) mg/dl Total Bilirubin 0.6 (0.2-1.0) mg/dl AST 16 (13-39) U/L ALT 12 (7-52) U/L Alkaline Phosphatase 63 (34-104) U/L Total Protein 7.1 (6.0-8.3) gm/dl Albumin 4.1 (3.4-5.0) gm/dl Globulin 3.0 (2.5-4.0) gm/dl Albumin/Globulin Ratio 1.4 (0.9-2) PG Care Time/CCT Total # of Minutes Spent Total Time Spent with Patient: Total time spent is greater than 50% in coordination of care (as documented) at patient's floor/unit and/or counseling patient: Coding Level of Care Code 21131 SUB INP/OBS CARE 2/35MIN Diagnoses Acid reflux K21.9 Left-sided chest pain R07.9 Epigastric discomfort R10.13 HTN (hypertension) I10 AMI (obstructive sleep apnea) G47.33 Dental cavity K02.9 Right ear pain H92.01 Edema of right lower extremity R60.0 Eye drainage H57.89
[2022-11-30] MEDS: ATORVASTATIN 40 MG TAB PO SCH (08:03)
[2022-11-30] MEDS: ONDANSETRON 4 MG OD TAB PO PRN (08:03)
[2022-11-30] MEDS: SUCRALFATE 1 GM TAB PO SCH ×4 (08:03→21:30)
[2022-11-30] MEDS: PANTOprazole 40 MG TAB PO SCH ×2 (08:03→21:32)
[2022-11-30] MEDS: POLYETHYLENE (MIRALAX) 17 GM PACK PO SCH ×2 (08:03→21:31)
[2022-11-30] MEDS: ASPIRIN 81 MG ECTAB PO SCH (08:04)
[2022-11-30] MEDS: MONTELUKAST SODIUM 10 MG TABLET PO SCH (08:04)
[2022-11-30] MEDS: CARBAMIDE PEROXIDE 6.5% 15 ML BTL OT SCH ×2 (08:04→21:30)
[2022-11-30] MEDS: DOCUSATE SODIUM/SENNA 50/8.6MG TAB PO SCH (08:04)
[2022-11-30] MEDS: DICLOFENAC SOD 1% GEL 100 GM TUBE EXT SCH ×4 (08:05→21:32)
[2022-11-30] MEDS: ERYTHROMYCIN OP OINT 5 MG/GM 3.5 GM TUBE OP SCH ×4 (08:05→21:32)
[2022-11-30] MEDS: FLUTICASONE FUROATE 200MCG 14 PUFFS/INHALER INH SCH (08:06)
[2022-11-30] MEDS: CIPRO 0.3%/DEXAMETHASONE 0.1% OTIC SUSP 7.5ML OTR SCH ×2 (08:06→21:30)
[2022-11-30 08:50] LABS: Albumin Globulin Ratio 1.4 (0.9-2); Albumin Level 4.1 gm/dl (3.4-5.0); Bilirubin,Total 0.6 mg/dl (0.2-1.0); Calcium 8.7 mg/dl (8.6-10.3); Creatinine Clr Calc Pharmacy 144.1 ml/min; Est GFR (African American) 111.1 ml/min; Est GFR (Non-African American) 95.8 ml/min; Magnesium 1.9 mg/dl (1.7-2.4); Potassium 4.2 mmol/L (3.5-5.1); Total Protein 7.1 gm/dl (6.0-8.3)
[2022-11-30] MEDS: traMADol HCL 50 MG TABLET PO PRN (09:09)
[2022-11-30] MEDS: lisinopril 10 MG TAB PO SCH (09:46)
--- NOTE | 2022-11-30 10:56 | Gastroenterology Progress Note ---
Date of Service November 30, 2022 Assessment & Plan (1) Epigastric discomfort: Plan: Would like to see how he does today with meds and regular diet. Advised not to drink milk while dealing with upset stomach. If still hurting tomorrow will arrange EGD Admission and Anticipated Discharge Date Admission Date: November 29, 2022 Subjective Complaining of some pain after having milk with cereal this morning. Said he did okay yesterday. But also says feels "somewhat better". Physical Exam Physical Exam: He looks comfortable Constitutional: WD/WN, vitals as above Results & Data Vital Signs (Past 12 Hours) Vital Signs Temp Pulse Pulse Resp BP Pulse Ox O2 Del Method 11/30/22 10:49 50 L 16 98 Room Air 11/30/22 07:19 36.0 C L 48 L 18 130/61 91 Room Air 11/30/22 07:17 47 L 11/30/22 07:14 49 L 16 95 Room Air 11/30/22 03:13 36.8 C 47 L 16 125/79 98 Room Air 11/29/22 23:03 63
[2022-11-30] MEDS ORDERED: IBUPROFEN 600 MG TAB PO STA (11:12)
[2022-11-30] MEDS: traZODone HCL 100 MG TAB PO SCH (21:31)
[2022-11-30] MEDS: LITHIUM CARBONATE 300 MG TAB PO SCH (21:31)
[2022-11-30] MEDS: PRAZOSIN HCL 1 MG CAP PO SCH (21:32)
[2022-11-30] MEDS: ONDANSETRON INJ 2 MG/ML 2 ML VIAL IV PRN (22:45)
[2022-12-01] MEDS: SODIUM CHLORIDE 0.9% 1000ML 1,000 ML IV SCH ×2 (05:56→18:35)
[2022-12-01] MEDS: ALBUTEROL HFA 8 GM INHALER INH SCH ×4 (07:28→19:05)
[2022-12-01] MEDS: MONTELUKAST SODIUM 10 MG TABLET PO SCH (09:25)
[2022-12-01] MEDS: ATORVASTATIN 40 MG TAB PO SCH (09:25)
[2022-12-01] MEDS: DOCUSATE SODIUM/SENNA 50/8.6MG TAB PO SCH (09:25)
[2022-12-01] MEDS: ASPIRIN 81 MG ECTAB PO SCH (09:25)
[2022-12-01] MEDS: DICLOFENAC SOD 1% GEL 100 GM TUBE EXT SCH ×4 (09:25→20:06)
[2022-12-01] MEDS: SUCRALFATE 1 GM TAB PO SCH ×4 (09:25→20:07)
[2022-12-01] MEDS: PANTOprazole 40 MG TAB PO SCH ×2 (09:25→20:08)
[2022-12-01] MEDS: FLUTICASONE FUROATE 200MCG 14 PUFFS/INHALER INH SCH (09:26)
[2022-12-01] MEDS: CARBAMIDE PEROXIDE 6.5% 15 ML BTL OT SCH ×2 (09:26→20:09)
[2022-12-01] MEDS: CIPRO 0.3%/DEXAMETHASONE 0.1% OTIC SUSP 7.5ML OTR SCH ×2 (09:26→20:09)
[2022-12-01] MEDS: POLYETHYLENE (MIRALAX) 17 GM PACK PO SCH ×2 (09:26→20:07)
[2022-12-01] MEDS: ERYTHROMYCIN OP OINT 5 MG/GM 3.5 GM TUBE OP SCH ×4 (09:26→20:06)
[2022-12-01] MEDS: lisinopril 10 MG TAB PO SCH (09:55)
[2022-12-01] MEDS: ACETAMINOPHEN 500 MG TAB PO PRN ×2 (12:54→22:17)
--- NOTE | 2022-12-01 15:10 | Hospitalist Progress Note ---
Date of Service December 01, 2022 Assessment & Plan (1) Acid reflux: Plan: admitted for CP, but suspected GI related (see below for CP r/o) He reports issues w/ sauces/pasta/pizza at senior care. Does drink coffee. Recent NSAID use/dry heeves. Hgb stable. Fecal occult negative Started protonix and then increased to BID Added carafate and GI consulted Per GI, continue current tx. For EGD later today Appears many ER visits for similar and prior admit sent on pepcid. Discussed w/ patient likely should be on at LEAST daily PPI currently on BID, carafate 1gm QID and then daily PPI after. Currently NPO for EGD s/p EGD with gastritis and duodenitis (2) Left-sided chest pain: Plan: 57-year-old male with history of prior aortic aneurysm repair (reported CABG in 2018 [place]), AMI and hypertension presenting with acute onset left-sided chest pain. Troponin unremarkable. EKG with no acute ischemic changes. Chest x-ray unremarkable. CTA negative for PE, no dissection noted. Troponin negative x5 ECHO w/o wma. No significant valvular disease/effusion. RV dilated w/ reduced EF 50-55% Lyme negative Cards consulted, did not feel cardiac in nature, not to pursue further imaging. Can continue topical Voltaren for MSK type pain from dry heaves. Avoiding PO NSAIDs and controlled w/ tramadol 50mg Q4h and could continue such while tx above underlying reflux Could consider low dose amlodipine for spasm type pain for additional assistance/possible esophageal spasms but will hold off for now, HRs low (3) Epigastric discomfort: Plan: as above, improving w/ BID PPI therapy, Carafate and GI following NPO currently for EGD (4) HTN (hypertension): Plan: Lisinopril held today due to low BPs -however noted interaction w/ lisinopril and lithium to increase lithium levels/toxicity. [place] level was checked on admission and LOW (on for mood disorder, not seizure hx) Consider lowering the dose of lisinopril to prevent hypotension issues vs amlodipine as above (5) AMI (obstructive sleep apnea): Plan: Chronic. Patient reports compliance with his home CPAP Patient refused CPAP last night (6) Dental cavity: Plan: recent cavity reported/pain CT obtained, did note some thickening/fluid to R ear -- not able to be visualized well presently due to significant ear wax. Debrox ordered as well as ciprodex given +tenderness to palpation ear and would suspect an external otitis but will monitor on repeat eval No abscess/fluid collection/erythema of the mouth blood cx obtained for completeness given recent dental work -- WBC wnl Remains afebrile, blood cx NGTD after 48hrs (7) Right ear pain: Plan: reported -- no drainage at present but significant ear wax --> erythema/edema on exam and will continue ciprodex -- rx at dc to complete treatment (8) Edema of right lower extremity: Plan: some RLE swelling Venous doppler w/ varicosities, no DVT improved today on exam (9) Eye drainage: Plan: left eye drainage on erythromycin drops----> improving and will continue x 7 days Plan continued inpatient stay continue PPI BID, carafate. GI following NPO currently for EGD today Admission and Anticipated Discharge Date Admission Date: November 29, 2022 Supervising Physician Co-Signing Physician Notes PA Supervision Note: I personally saw and examined the patient. I verified all gaffney points and agree with TAVO Contreras with the following exceptions and/or additions: none. For EGD with biopsy today, anticipate discharge to facility tomorrow if continues to be stable. Subjective Patient evaluated this afternoon. He was awake resting comfortably in bed stating pain improving but still present. He is NPO for EGD later today Eye/ear pain improving. Review of Systems Review of Systems: Complain of epigastric and left upper abdomen/chest pain worse with movements No decreasing factors for the pain Respiratory: no cough, no chest congestion, no dyspnea and no hemoptysis Physical Exam Constitutional: WD/WN, vitals as above ENMT: mild redness to left eye, no discharge Neck: trachea midline, no thyromegaly Respiratory: normal respiratory effort, lungs clear to auscultation Cardiovascular: RRR, no murmur, no edema mildly bradycardic Gastrointestinal (Abdomen): normal bowel sounds, soft, nontender, no hepatosplenomegaly abdomen obese Psychiatric: A+Ox3, euthymic affect Results & Data Results & Data Vital Signs (Past 12 Hours) Vital Signs Temp Pulse Pulse Resp BP Pulse Ox O2 Del Method 12/01/22 11:25 36.3 C L 47 L 18 112/76 94 Room Air 12/01/22 10:50 50 L 15 97 Room Air 12/01/22 07:45 Room Air 12/01/22 07:38 36.3 C L 47 L 18 96/63 L 93 Room Air 12/01/22 07:28 65 15 94 Room Air 12/01/22 07:16 52 L 12/01/22 03:49 36.5 C 42 L 18 109/70 93 Room Air FiO2 12/01/22 11:25 12/01/22 10:50 21 12/01/22 07:45 12/01/22 07:38 12/01/22 07:28 21 12/01/22 07:16 12/01/22 03:49 Laboratory Results Laboratory Results - last 24 hr 12/01/22 12/01/22 08:11 11:22 POC Glucose 94 107 H PG Care Time/CCT Total # of Minutes Spent Total Time Spent with Patient: Total time spent is greater than 50% in coordination of care (as documented) at patient's floor/unit and/or counseling patient: Coding Level of Care Code 31238 SUB INP/OBS CARE 08/20MIN Diagnoses Acid reflux K21.9 Left-sided chest pain R07.9 Epigastric discomfort R10.13 HTN (hypertension) I10 AMI (obstructive sleep apnea) G47.33 Dental cavity K02.9 Right ear pain H92.01 Edema of right lower extremity R60.0 Eye drainage H57.89
--- NOTE | 2022-12-01 15:37 | Anesthesiology Consultation ---
Date of Service December 01, 2022 Assessment & Plan (1) Encounter for pre-operative examination: Chart Review Chart Review: Acceptable Risk for Surgery and Patient NOT seen in Pre Admission Testing Cardiology note 11/27/22: chest pain, low index of suspicion cardiac in nature. Consults Requested none History Surgery Operation Date: 12/01/22 18:00 Proposed Procedures p Esophagogastroduodenoscopy Dr. Orlando Perry Jr, MD Height/Weight Height: 6 ft 1 in Weight: 149.8 kg Allergies Allergy/AdvReac Type Severity Reaction Status Date / Time Penicillins Allergy Intermediate Hives Verified 11/27/22 01:10 bee venom protein (honey bee) Allergy Unknown Unknown Verified 11/27/22 01:10 cephalexin [From Keflex] AdvReac Intermediate Gastrointestinal Verified 11/27/22 01:10 Upset Medications Home Medications Medication Instructions Recorded Confirmed Last Taken aspirin 81 mg tablet,delayed 81 mg PO DAILY 02/05/21 11/27/22 Unknown release atorvastatin 40 mg tablet 40 mg PO DAILY 02/05/21 11/27/22 Unknown ciclesonide 80 mcg/actuation 1 puff inhalation BID 02/05/21 11/27/22 Unknown aerosol inhaler (Alvesco) albuterol sulfate 90 mcg/actuation 2 puff inhalation QID PRN 06/22/22 11/27/22 Unknown aerosol inhaler Shortness Of Breath lisinopril 30 mg tablet 30 mg PO DAILY 06/22/22 11/27/22 Unknown lithium carbonate 300 mg tablet 300 mg PO HS 06/22/22 11/27/22 Unknown trazodone 100 mg tablet 100 mg PO HS 06/22/22 11/27/22 Unknown ibuprofen 600 mg tablet 600 mg PO TID 11/27/22 11/27/22 Unknown ketotifen fumarate 0.025 % (0.035 1 drp OPL BID 11/27/22 11/27/22 Unknown %) eye drops (Eye Itch Relief) montelukast 10 mg tablet 10 mg PO DAILY 11/27/22 11/27/22 Unknown (Singulair) nitroglycerin 0.4 mg sublingual 0.4 mg sublingual TID PRN Chest 11/27/22 11/27/22 Unknown tablet Pain prazosin 2 mg capsule 2 mg PO HS 11/27/22 11/27/22 Unknown Active Medications Generic Name Dose Route Start Last Admin Trade Name Freq PRN Reason Stop Dose Admin Acetaminophen 1,000 mg 11/28/22 10:31 12/01/22 12:54 Acetaminophen 500 Mg Tab PO 12/28/22 10:30 1,000 mg Q8H PRN Administration Pain Albuterol 2 puffs 11/28/22 19:00 12/01/22 15:04 Albuterol Hfa 8 Gm Inhaler INH 12/28/22 18:59 2 puffs QIDR OLGA Administration Aspirin 81 mg 11/27/22 09:00 12/01/22 09:25 Aspirin 81 Mg Ectab PO 12/27/22 08:59 81 mg DAILY OLGA Administration Atorvastatin Calcium 40 mg 11/27/22 09:00 12/01/22 09:25 Atorvastatin 40 Mg Tab PO 12/27/22 08:59 40 mg DAILY OLGA Administration Carbamide Peroxide 2 drops 11/28/22 14:25 12/01/22 09:26 Carbamide Peroxide 6.5% 15 Ml Btl OT 12/02/22 14:24 2 drops BID OLGA Administration Ciprofloxacin/Dexamethasone 3 drops 11/28/22 21:00 12/01/22 09:26 Cipro 0.3%/Dexamethasone 0.1% Otic Susp 7.5ml OTR 12/28/22 20:59 3 drops BID OLGA Administration Diclofenac Sodium 2 gm 11/28/22 09:00 12/01/22 12:54 Diclofenac Sod 1% Gel 100 Gm Tube EXT 12/28/22 08:59 2 gm QID OLGA Administration Protocol Erythromycin 5 appln 11/27/22 09:00 12/01/22 12:54 Erythromycin Op Oint 5 Mg/Gm 3.5 Gm Tube OP 12/04/22 08:59 5 appln QID OLGA Administration Fluticasone Furoate 1 puffs 11/27/22 09:00 12/01/22 09:26 Fluticasone Furoate 200mcg 14 Puffs/Inhaler INH 12/27/22 08:59 1 puffs DAILY OLGA Administration Sodium Chloride 1,000 mls @ 80 mls/hr 12/01/22 06:00 12/01/22 05:56 Nss 1000ml IV 12/31/22 05:59 80 mls/hr .[id number] OLGA Administration Ibuprofen 600 mg 11/27/22 09:00 11/27/22 14:16 Ibuprofen 600 Mg Tab PO 12/27/22 08:59 Not Given TID OLGA Lisinopril 30 mg 11/30/22 09:00 12/01/22 09:55 Lisinopril 10 Mg Tab PO 12/30/22 08:59 Not Given QAM OLGA [place] Carbonate 300 mg 11/27/22 21:00 11/30/22 21:31 [place] Carbonate 300 Mg Tab PO 12/27/22 20:59 300 mg HS OLGA Administration Montelukast Sodium 10 mg 11/27/22 09:00 12/01/22 09:25 Montelukast Sodium 10 Mg Tablet PO 12/27/22 08:59 10 mg DAILY OLGA Administration Ondansetron HCl 4 mg 11/27/22 05:43 11/30/22 22:45 Ondansetron Inj 2 Mg/Ml 2 Ml Vial IV 12/27/22 05:42 4 mg Q6H PRN Administration Nausea Ondansetron HCl 4 mg 11/29/22 11:28 11/30/22 08:03 Ondansetron 4 Mg Od Tab PO 12/29/22 11:27 4 mg Q4H PRN Administration Nausea And Vomiting Pantoprazole Sodium 40 mg 11/28/22 21:00 12/01/22 09:25 Pantoprazole 40 Mg Tab PO 12/28/22 20:59 40 mg BID OLGA Administration Polyethylene Glycol 17 gm 11/29/22 21:00 12/01/22 09:26 Polyethylene (Miralax) 17 Gm Pack PO 12/29/22 20:59 17 gm BID OLGA Administration Prazosin HCl 2 mg 11/27/22 21:00 11/30/22 21:32 Prazosin Hcl 1 Mg Cap PO 12/27/22 20:59 2 mg HS OLGA Administration Senna/Docusate Sodium 1 tab 11/29/22 09:00 12/01/22 09:25 Docusate Sodium/Senna 50/8.6mg Tab PO 12/29/22 08:59 1 tab QAM OLGA Administration Sucralfate 1 gm 11/29/22 17:00 12/01/22 12:54 Sucralfate 1 Gm Tab PO 12/29/22 16:59 1 gm QID OLGA Administration Tramadol HCl 50 mg 11/28/22 17:48 11/30/22 09:09 Tramadol Hcl 50 Mg Tablet PO 12/28/22 17:47 50 mg Q4H PRN Administration Pain Trazodone HCl 100 mg 11/27/22 21:00 11/30/22 21:31 Trazodone Hcl 100 Mg Tab PO 12/27/22 20:59 100 mg HS OLGA Administration Past Medical History Medical History (Updated 12/01/22 @ 15:39 by Ras Dowling MD) Acid reflux Asthma Encounter for pre-operative examination HTN (hypertension) Left-sided chest pain Obesity AMI (obstructive sleep apnea) Past Surgical History Surgical History History of aortic aneurysm repair Social History Smoking Status: Former smoker tobacco type: cigarettes Do You Dip or Chew Tobacco: No Hx Alcohol Use: No Hx Substance Use: No substance use type: does not use Physical Exam Vital Signs Last Vital Signs Temp 36.3 C L 12/01/22 11:25 Pulse 47 L 12/01/22 15:08 Resp 14 12/01/22 15:08 BP 112/76 12/01/22 11:25 Pulse Ox 94 12/01/22 15:08 O2 Del Method Room Air 12/01/22 15:08 FiO2 21 12/01/22 15:08 Testing Laboratory Results 11/28/22 05:48 11/30/22 08:07 Urine Color Yellow 11/28/22 17:10 Urine Appearance Clear (Clear) 11/28/22 17:10 Urine pH 7.0 (4.5-7.5) 11/28/22 17:10 Ur Specific [place] 1.008 (1.000-1.030) 11/28/22 17:10 Urine Protein Negative (Negative) 11/28/22 17:10 Urine Glucose (UA) Negative (Negative) 11/28/22 17:10 Urine Ketones Negative (Negative) 11/28/22 17:10 Urine Nitrite Negative (Negative) 11/28/22 17:10 Ur Leukocyte Esterase Negative (Negative) 11/28/22 17:10 11/27/22 18:06 Aerobic Blood Culture - Preliminary Blood No growth in Aerobic bottle after 48 hours. Anaerobic Blood Culture - Final 11/27/22 17:41 Aerobic Blood Culture - Preliminary Blood No growth in Aerobic bottle after 48 hours. Anaerobic Blood Culture - Preliminary No growth in Anaerobic bottle after 48 hours. 12/01/22 12/01/22 11:22 08:11 POC Glucose 107 H 94 Electrocardiogram Date: 11/27/22 Marked sinus bradycardia with first degree AV block. Nonspecific T wave a bnormality. Chest X-Ray Date: 11/27/22 XR chest 1V portable CLINICAL HISTORY: Shortness of breath. COMPARISON STUDY: Chest radiograph and chest CT November 27, 2022. FINDINGS: Median sternotomy wires are noted. Cardiomediastinal silhouette is stable. No pneumothorax or pleural effusion. There is no consolidation to suggest pneumonia. There is no significant change in appearance of the chest. IMPRESSION: No acute cardiopulmonary findings. No change in appearance of the chest. Echocardiogram Date: 11/27/22 LV normal in size. LV wall thickness normal. EF 50-55% RV mild to moderately dilated No RWMA
--- NOTE | 2022-12-01 16:10 | History & Physical Report ---
Date of Service December 01, 2022 Assessment & Plan (1) Epigastric discomfort: Plan: Pleasant man with abdominal pain who needs egd. Procedure and risks discussed, he agrees Admission and Anticipated Discharge Date Admission Date: November 29, 2022 History of Present Illness Chief Complaint: LUQ pain Primary Care Provider: WALLACE Michael 57 year old with left sided abdominal pain. Here for EGD Allergies Allergy/AdvReac Type Severity Reaction Status Date / Time Penicillins Allergy Intermediate Hives Verified 11/27/22 01:10 bee venom protein (honey bee) Allergy Unknown Unknown Verified 11/27/22 01:10 cephalexin [From Keflex] AdvReac Intermediate Gastrointestinal Verified 11/27/22 01:10 Upset Home Medications Medication Instructions Recorded Confirmed Type aspirin 81 mg tablet,delayed 81 mg PO DAILY 02/05/21 11/27/22 History release atorvastatin 40 mg tablet 40 mg PO DAILY 02/05/21 11/27/22 History ciclesonide 80 mcg/actuation 1 puff inhalation BID 02/05/21 11/27/22 History aerosol inhaler (Alvesco) albuterol sulfate 90 mcg/actuation 2 puff inhalation QID PRN 06/22/22 11/27/22 History aerosol inhaler Shortness Of Breath lisinopril 30 mg tablet 30 mg PO DAILY 06/22/22 11/27/22 History lithium carbonate 300 mg tablet 300 mg PO HS 06/22/22 11/27/22 History trazodone 100 mg tablet 100 mg PO HS 06/22/22 11/27/22 History ibuprofen 600 mg tablet 600 mg PO TID 11/27/22 11/27/22 History ketotifen fumarate 0.025 % (0.035 1 drp OPL BID 11/27/22 11/27/22 History %) eye drops (Eye Itch Relief) montelukast 10 mg tablet 10 mg PO DAILY 11/27/22 11/27/22 History (Singulair) nitroglycerin 0.4 mg sublingual 0.4 mg sublingual TID PRN Chest 11/27/22 11/27/22 History tablet Pain prazosin 2 mg capsule 2 mg PO HS 11/27/22 11/27/22 History Past Med/Surg History Medical History Acid reflux Asthma Encounter for pre-operative examination HTN (hypertension) Left-sided chest pain Obesity AMI (obstructive sleep apnea) Surgical History History of aortic aneurysm repair Social History Smoking Status: Former smoker Tobacco Type: Cigarettes Second Hand Exposure: No; Do You Dip or Chew Tobacco: No; Tobacco Cessation Education Requested by Patient: No Hx Alcohol Use: No Hx Substance Use: No Preferred Language: Tajik Communication Ability: Effective Blast Furnace Blower Required: No Beliefs That Will Affect Care: None Current Living Situation: Other Current Living Situation Comment: [facility] Other Information That Helps Us Care for You: No Feels Safe at Home: Yes Safety Concerns: Feels Safe At This Time Assistive Devices: CPAP Physical Exam Constitutional: WD/WN, vitals as above Respiratory: normal respiratory effort, lungs clear to auscultation Cardiovascular: RRR, no murmur, no edema Gastrointestinal (Abdomen): normal bowel sounds, soft, nontender, no hepa tosplenomegaly ASA Classification ASA ASA3 Results & Data Vital Signs (Past 12 Hours) Vital Signs Temp Pulse Pulse Resp BP Pulse Ox O2 Del Method 12/01/22 15:00 45 L 12/01/22 15:33 36.4 C L 46 L 18 122/60 94 Room Air 12/01/22 15:08 47 L 14 94 Room Air 12/01/22 11:25 36.3 C L 47 L 18 112/76 94 Room Air 12/01/22 10:50 50 L 15 97 Room Air 12/01/22 07:45 Room Air 12/01/22 07:38 36.3 C L 47 L 18 96/63 L 93 Room Air 12/01/22 07:28 65 15 94 Room Air 12/01/22 07:16 52 L FiO2 12/01/22 15:00 12/01/22 15:33 12/01/22 15:08 21 12/01/22 11:25 12/01/22 10:50 21 12/01/22 07:45 12/01/22 07:38 12/01/22 07:28 21 12/01/22 07:16
--- NOTE | 2022-12-01 16:25 | Post Operative Brief Note ---
Immediate Post Op Note v1 Date of Surgery December 01, 2022 Pre & Post Diagnosis Operation Date: 12/01/22 18:00 Pre-Op Diagnosis: CHEST PAIN Post-op--gastritis, duodenitis I identified the patient and participated in the time-out.: Yes Procedure Operation Date: 12/01/22 18:00 <No data on this case meets the specified criteria> EGD Surgeon Kenia Perry Jr, MD Numerical Control Nesting Operator none Estimated Blood Loss 0 Findings Consistent with Post-Op Diagnosis gastritis--biopsies taken, duodenitis Anesthesia Type General Complications none Disposition Accompanied Patient To Recovery: No Disposition: Recovery Room Overlapping Procedure I was immediately available: during the entire case.
--- NOTE | 2022-12-01 16:27 | GI REPORT ---
Patient Name: Bernard Hahn Procedure Date: 12/01/2022 3:45 PM Date of : 1965 Admit Type: Inpatient Age: 57 Gender: Male Attending MD: Kenia Perry MD, Procedure: Upper GI endoscopy Providers: Kenia Perry MD Referring MD: Michael Mendez Indications: Abdominal pain in the left upper quadrant Medicines: Propofol per Anesthesia Complications: No immediate complications. Estimated Blood Loss: Estimated blood loss: none. Procedure: Pre-Anesthesia Assessment: - Prior to the procedure, a History and Physical was performed, and patient medications and allergies were reviewed. The patient's tolerance of previous anesthesia was also reviewed. The risks and benefits of the procedure and the sedation options and risks were discussed with the patient. All questions were answered, and informed consent was obtained. Prior Anticoagulants: The patient has taken no anticoagulant or antiplatelet agents. ASA Grade Assessment: III - A patient with severe systemic disease. After reviewing the risks and benefits, the patient was deemed in satisfactory condition to undergo the procedure. After obtaining informed consent, the endoscope was passed under direct vision. Throughout the procedure, the patient's blood pressure, pulse, and oxygen saturations were monitored continuously. The Endoscope was introduced through the mouth, and advanced to the second part of duodenum. The upper GI endoscopy was accomplished without difficulty. The patient tolerated the procedure well. Findings: The esophagus was normal. Patchy moderately erythematous mucosa without bleeding was found in the gastric antrum. Biopsies were taken with a cold forceps for histology. The exam of the stomach was otherwise normal. Patchy moderately erythematous mucosa without active bleeding and with no stigmata of bleeding was found in the duodenal bulb, in the first portion of the duodenum and in the second portion of the duodenum. Impression: - Normal esophagus. - Erythematous mucosa in the antrum. Biopsied. - Erythematous duodenopathy. Recommendation: - Patient has a contact number available for emergencies. The signs and symptoms of potential delayed complications were discussed with the patient. Return to normal activities tomorrow. Written discharge instructions were provided to the patient. - Resume previous diet. - Continue present medications. Kenia Perry MD 12/01/2022 4:27:13 PM Note Initiated On: 12/01/2022 3:45 PM Number of Addenda: 0 I attest to the content of the Intraoperative Record and orders documented therein, exceptions below {[id number]}
--- NOTE | 2022-12-01 16:48 | Anesthesiology Progress Note ---
Date of Service December 01, 2022 Anesthesia Post Procedure Vital Signs Vital Signs: Temp Pulse Pulse Resp BP Pulse Ox O2 Del Method 12/01/22 16:46 62 16 125/77 92 Room Air 12/01/22 16:31 78 14 112/60 93 Room Air 12/01/22 15:00 45 L 12/01/22 15:33 36.4 C L 46 L 18 122/60 94 Room Air 12/01/22 15:08 47 L 14 94 Room Air 12/01/22 11:25 36.3 C L 47 L 18 112/76 94 Room Air 12/01/22 10:50 50 L 15 97 Room Air 12/01/22 07:45 Room Air 12/01/22 07:38 36.3 C L 47 L 18 96/63 L 93 Room Air 12/01/22 07:28 65 15 94 Room Air 12/01/22 07:16 52 L 12/01/22 03:49 36.5 C 42 L 18 109/70 93 Room Air 11/30/22 22:17 48 L 11/30/22 20:00 Room Air 11/30/22 22:45 36.4 C L 48 L 20 111/72 95 Room Air 11/30/22 19:50 46 L 18 96 Room Air 11/30/22 19:16 36.5 C 42 L 17 111/71 93 Room Air FiO2 12/01/22 16:46 12/01/22 16:31 12/01/22 15:00 12/01/22 15:33 12/01/22 15:08 21 12/01/22 11:25 12/01/22 10:50 21 12/01/22 07:45 12/01/22 07:38 12/01/22 07:28 21 12/01/22 07:16 12/01/22 03:49 11/30/22 22:17 11/30/22 20:00 11/30/22 22:45 11/30/22 19:50 11/30/22 19:16 Pain Intensity Chest: Pain Intensity: 3 Head: Pain Intensity: 5 Transfer of Care Handoff Completed per policy Notes Mental Status: alert / awake / arousable and participated in evaluation Patient Amnestic to Procedure: Yes Nausea / Vomiting: adequately controlled Pain: adequately controlled Airway Patency, RR, SpO2: stable & adequate BP & HR: stable & adequate Hydration State: stable & adequate Anesthetic Complications: no major complications apparent and Pt Satisfied with anesthetic care
[2022-12-01] MEDS: ONDANSETRON INJ 2 MG/ML 2 ML VIAL IV PRN (17:54)
[2022-12-01] MEDS: traZODone HCL 100 MG TAB PO SCH (20:08)
[2022-12-01] MEDS: PRAZOSIN HCL 1 MG CAP PO SCH (20:08)
[2022-12-01] MEDS: LITHIUM CARBONATE 300 MG TAB PO SCH (20:08)
[2022-12-02] MEDS: ONDANSETRON INJ 2 MG/ML 2 ML VIAL IV PRN (05:52)
[2022-12-02] MEDS: ALBUTEROL HFA 8 GM INHALER INH SCH ×2 (07:07→11:18)
--- NOTE | 2022-12-02 08:30 | Gastroenterology Progress Note ---
Supervising farzana's note Discussed with FARZAD Ken and agree with her note and recommendations. I do believe he should be ready to go home soon. He does not have anything sev ere in stomach and PPI should take care of it. We will follow while he is here Date of Service December 02, 2022 Assessment & Plan (1) Epigastric discomfort: Plan: Epigastric pain: EGD 12/01/2022 demonstrated nonbleeding patchy moderately erythematous mucosa in the gastric antrum with biopsies pending. Also had patchy moderately erythematous mucosa without active bleeding in the duodenum. Patient medication regimen currently includes pantoprazole 40 mg twice daily, sucralfate 1 g before meals and at bedtime, and 81 mg aspirin. Agree with current PPI and sucralfate regimen until discharge, at discharge okay to discharge on PPI daily. Would recommend continuation of PPI indefinitely as patient is on 81 mg aspirin. Case reviewed with Dr. Perry. Please refer to supervising physician addendum for further recommendations. I have spent 15 minutes of discrete time performing the activities of this visit which include but are not limited to review of the medical record, obtaining a history, physical exam, and entering information in the electronic record. Admission and Anticipated Discharge Date Admission Date: November 29, 2022 Subjective Patient lying in bed in position of comfort. He has 2 corrections officers at bedside. He reports some continued left upper quadrant/epigastric abdominal discomfort. He did have some vomiting following eating last night after his EGD. This has resolved this morning and he tolerated his breakfast without difficulty. He denies other symptoms. Review of Systems Review of Systems: All systems reviewed & are unremarkable except as noted in Subjective Physical Exam Gastrointestinal (Abdomen): Inspection/Auscultation: abdomen normal to inspection and normal bowel sounds Percussion/Palpation: + abdomen tender (epigastric) and abdomen soft; no guarding and abdomen not rigid Results & Data Vital Signs (Past 12 Hours) Vital Signs Temp Pulse Pulse Resp BP BP Pulse Ox 12/02/22 08:01 53 L 12/02/22 07:14 36.5 C 50 L 20 103/47 L 92 12/02/22 07:09 47 L 14 91 12/02/22 03:01 36.5 C 49 L 16 92 12/02/22 04:00 54 L 16 106/64 94 05/08/23 23:00 54 L 12/01/22 22:33 36.4 C L 56 L 18 101/62 94 O2 Del Method FiO2 12/02/22 08:01 12/02/22 07:14 Room Air 12/02/22 07:09 Room Air 21 12/02/22 03:01 Room Air 12/02/22 04:00 Room Air 12/01/22 23:00 12/01/22 22:33 Room Air Laboratory Results Laboratory Results - last 24 hr 12/01/22 12/01/22 11:22 17:20 POC Glucose 107 H 93 Diagnostic Findings 12/01/2022: EGD notes are reviewed performed due to left upper quadrant abdominal pain demonstrated normal esophagus. Patchy moderately erythematous mucosa without bleeding found in the gastric antrum with biopsies obtained. Examined stomach was normal. Patchy moderately erythematous mucosa without active bleeding and no stigmata of bleeding was found in the duodenal bulb, and the first portion of the duodenum, and in the second portion of the duodenum. Pathology results are currently pending
[2022-12-02] MEDS: ATORVASTATIN 40 MG TAB PO SCH (09:32)
[2022-12-02] MEDS: FLUTICASONE FUROATE 200MCG 14 PUFFS/INHALER INH SCH (09:32)
[2022-12-02] MEDS: lisinopril 10 MG TAB PO SCH (09:32)
[2022-12-02] MEDS: DOCUSATE SODIUM/SENNA 50/8.6MG TAB PO SCH (09:32)
[2022-12-02] MEDS: ASPIRIN 81 MG ECTAB PO SCH (09:32)
[2022-12-02] MEDS: PANTOprazole 40 MG TAB PO SCH (09:32)
[2022-12-02] MEDS: MONTELUKAST SODIUM 10 MG TABLET PO SCH (09:32)
[2022-12-02] MEDS: SUCRALFATE 1 GM TAB PO SCH ×2 (09:32→13:23)
[2022-12-02] MEDS: ERYTHROMYCIN OP OINT 5 MG/GM 3.5 GM TUBE OP SCH ×2 (09:33→13:22)
[2022-12-02] MEDS: DICLOFENAC SOD 1% GEL 100 GM TUBE EXT SCH ×2 (09:33→13:22)
[2022-12-02] MEDS: CARBAMIDE PEROXIDE 6.5% 15 ML BTL OT SCH (09:34)
[2022-12-02] MEDS: CIPRO 0.3%/DEXAMETHASONE 0.1% OTIC SUSP 7.5ML OTR SCH (09:34)
[2022-12-02] MEDS: POLYETHYLENE (MIRALAX) 17 GM PACK PO SCH (09:35)
[2022-12-02] MEDS ORDERED: HYDROGEN PEROXIDE OTR ONE (10:21)
--- NOTE | 2022-12-02 10:30 | Discharge Summary ---
Date of Service December 02, 2022 Admission HPI Per Admitting Provider 57 year old with left sided abdominal pain. Here for EGD Admission Exam Per Admitting Provider General: patient resting comfortably, NAD, non-toxic in appearance, AA&O x 4 Skin: warm, dry, intact, no rashes or lesions HEENT: NC/AT, PERRL, EOMI, anicteric sclera, injected conjunctiva on the left with some purulent drainage of the eye, external ear normal to inspection and nontender, nares patent, moist mucus membranes, dentition intact, no oropharyngeal lesions, neck supple, trachea midline, no LAD, no thyromegaly, no JVD Heart: +S1/S2, regular, bradycardic,no m/r/g, No reproducible chest wall pain Lungs: equal air entry bilaterally, no rales/rhonchi/wheezes Abd: +BS, soft, NT/ND, no masses/organomegaly/ascites Ext: warm, 2+ pulses in UE/LE bilaterally, no clubbing/cyanosis, edema of right lower extremity with tortuous varicosities Neuro: nonfocal, patient AA&O x 4, speech intact, no facial droop, moving all extremities on command with equal strength 5/5 Principal Diagnosis atypical chest pain left conjunctivitis right cerumen impaction Discharge Exam Constitutional WD/WN, vitals as above Neck trachea midline, no thyromegaly Respiratory normal respiratory effort, lungs clear to auscultation Cardiovascular RRR, no murmur, no edema Gastrointestinal (Abdomen) normal bowel sounds, soft, nontender, no hepatosplenomegaly Psychiatric A+Ox3, euthymic affect Discharge Data Allergies Allergy/AdvReac Type Severity Reaction Status Date / Time Penicillins Allergy Intermediate Hives Verified 11/27/22 01:10 bee venom protein (honey bee) Allergy Unknown Unknown Verified 11/27/22 01:10 cephalexin [From Keflex] AdvReac Intermediate Gastrointestinal Verified 11/27/22 01:10 Upset Consultations 11/27/22 03:21 ED Decision to Admit Stat 11/27/22 14:37 Consult Cardiology Routine 11/29/22 11:28 Consult Gastroenterology Routine Procedures Performed Operation Date: 12/01/22 18:00 Actual Procedures p EGD Biopsy Cytology - Kenia Perry Jr, MD Findings: The esophagus was normal. Patchy moderately erythematous mucosa without bleeding was found in the gastric antrum. Biopsies were taken with a cold forceps for histology. The exam of the stomach was otherwise normal. Patchy moderately erythematous mucosa without active bleeding and with no stigmata of bleeding was found in the duodenal bulb, in the first portion of the duodenum and in the second portion of the duodenum. Impression: - Normal esophagus. - Erythematous mucosa in the antrum. Biopsied. - Erythematous duodenopathy. Recommendation: - Patient has a contact number available for emergencies. The signs and symptoms of potential delayed complications were discussed with the patient. Return to normal activities tomorrow. Written discharge instructions were provided to the patient. - Resume previous diet. - Continue present medications. Kenia Perry MD Ordered Studies 11/27/22 05:43 CTA chest w con [CT angio chest w con] Urgent IMPRESSION: 1. No thoracic aortic dissection. 2. No acute findings within the chest. Stable postoperative findings, as described above. US venous doppler LE RT Routine IMPRESSION: 1. There is no sonographic evidence of deep venous thrombosis identified in the right lower extremity. 2. Superficial venous varicosities are identified in the posterior calf at the site of interest. 11/27/22 14:30 CT soft tissue neck w con Routine IMPRESSION: 1. No mass, lymphadenopathy, or abscess identified within the neck. 2. Small amount of fluid/thickening within the right external auditory canal. Hospital Course (1) Acid reflux: Admitted for CP, but suspected GI related (see below for CP r/o) He reports issues w/ sauces/pasta/pizza at group home. Does drink coffee. Recent NSAID use/dry heeves. Hgb stable. Fecal occult negative Started protonix and then increased to BID Added carafate and GI consulted Per GI, continue current tx. EGD 12/01/22 - gastritis and duodenitis Appears many ER visits for similar and prior admit sent on pepcid. Discussed w/ patient likely should be on at LEAST daily PPI currently on BID will continue for 6 weeks and then decrease to daily there after (2) Left-sided chest pain: 57-year-old male with history of prior aortic aneurysm repair (reported CABG in 2019 [place]), AMI and hypertension presenting with acute onset left-sided chest pain. Troponin unremarkable. EKG with no acute ischemic changes. Chest x-ray unremarkable. CTA negative for PE, no dissection noted. Troponin negative x5 ECHO w/o wma. No significant valvular disease/effusion. RV dilated w/ reduced EF 50-55% Lyme negative Cards consulted, did not feel cardiac in nature, not to pursue further imaging. Resolved, see above PPI treatment for gastritis and duodenitis (3) Epigastric discomfort: as above, improving w/ BID PPI therapy, GI with EGD 12/01 Gastritis and Duodenitis PPI BID for 6 weeks and then once daily (4) HTN (hypertension): Lisinopril held during admission for low BPs -however noted interaction w/ lisinopril and lithium to increase lithium levels/toxicity. [place] level was checked on admission and LOW (on for mood disorder, not seizure hx) Will continue to hold Lisinopril and have [facility] at group home to check BPs daily and if BP rising will leave up to their discretion to restart (5) AMI (obstructive sleep apnea): Chronic. Patient reports compliance with his home CPAP Patient refused CPAP whilein hospital Encouraged use (6) Dental cavity: recent cavity reported/pain CT obtained, did note some thickening/fluid to R ear -- not able to be visualize d well presently due to significant ear wax. Debrox ordered as well as ciprodex given +tenderness to palpation ear and would suspect an external otitis but will monitor on repeat eval No abscess/fluid collection/erythema of the mouth blood cx obtained for completeness given recent dental work -- WBC wnl Remains afebrile, blood cx NGTD after 48hrs (7) Right ear pain: reported -- no drainage at present but significant ear wax --> erythema/edema on exam and will continue ciprodex -- rx at dc to complete treatment Lavaged right ear today with warm water and hydrogen peroxide (8) Edema of right lower extremity: some RLE swelling Venous doppler w/ varicosities, no DVT improved today on exam (9) Eye drainage: left eye drainage on erythromycin drops----> improving and will continue x 7 days Plan s/p EGD 12/01 with gastritis and duodenitis continue PPI BID biopsy pathology pending Total Time Total Time Spent Total Time Spent (In Minutes): 40 Discharge Plan Discharge Items [facility] Reason For Visit: CHEST PAIN Discharge Diagnosis: chest pain - noncardiac Gastritis Duodenitis Condition on Discharge: Good Activity: Resume your previous activity Non-emergency contact: Primary Care Provider Call non-emergency contact if: your symptoms worsen Follow-up/Referrals: Michael GONSALEZ [Primary Care Provider] - Diet: Heart Healthy Addtl Attending Provider Instructions: - Pantoprazole 40 mg daily x 6 weeks then one daily indefinately - 5 more days of the emycin eye drops and ciprodex ear drops - Lisinopril held and [facility] to place patient on BP checks - Bx from EGD pending Pending Studies at Discharge: Yes Studies:: biopsy from EGD Stand-Alone Forms: [facility] Skilled Items Patient informed of condition?: Yes Discharge Level of Care: Other Communicable Disease: No Discharge Prognosis: Stable Lines: None Urinary Catheter: No Medications and DC Order Prescriptions: New ciprofloxacin-dexamethasone 0.3-0.1 % Drops,Suspension 3 drp OTR BID 5 Days Qty: 7.5 0RF erythromycin 5 mg/gram (0.5 %) Ointment 5 applic ophthalmic (eye) QID 5 Days Qty: 3.5 0RF pantoprazole 40 mg Tablet,Delayed Release (Dr/Ec) 40 mg PO BID 42 Days Qty: 84 0RF Rx Instructions: After 6 weeks, resume one daily indefinately Continued atorvastatin 40 mg Tablet 40 mg PO DAILY aspirin 81 mg Tablet,Delayed Release (Dr/Ec) 81 mg PO DAILY Alvesco 80 mcg/actuation Hfa Aerosol Inhaler 1 puff INHALATION BID trazodone 100 mg Tablet 100 mg PO HS lithium carbonate 300 mg Tablet 300 mg PO HS albuterol sulfate 90 mcg/actuation Hfa Aerosol Inhaler 2 puff INHALATION QID PRN (Reason: Shortness Of Breath) montelukast [Singulair] 10 mg Tablet 10 mg PO DAILY nitroglycerin 0.4 mg Tablet, Sublingual 0.4 mg sublingual TID PRN (Reason: Chest Pain) Rx Instructions: NEEDED FOR CHEST PAIN : ONE TABLET UNDER THE TONGUE EVERY 5 MINUTES UP TO THREE DOSES. ibuprofen 600 mg Tablet 600 mg PO TID prazosin 2 mg Capsule 2 mg PO HS ketotifen fumarate [Eye Itch Relief] 0.025 % (0.035 %) Drops 1 drp OPL BID Rx Instructions: administer at least 8 hours apart Held lisinopril 30 mg Tablet 30 mg PO DAILY Hold Instructions: Resume on 12/08/22. [facility] to continue BP checks Resume if BP elevated Discharge Orders: Discharge Order (Routine); Ordered 12/02/22 Ordered By: Aemna Contreras Admission Data Admit Date/Time: 11/29/22 13:32 Attending Provider: Nathalia Appiah Admit Provider: Elizabeth Chris Primary Care Provider: Michael GONSALEZ Other Providers: Elizabeth Chris ; Sherwin Ortiz ; Kenia Perry Jr Other Interventions: Discharge Summary Assessment (RN) Last Done: 12/02/22 13:05 Supervising Physician Co-Signing Physician Notes PA Supervision Note: I personally saw and examined the patient. I verified all gaffney points and agree with TAVO Contreras with the following exceptions and/or additions: Subjective: 57-year-old male past medical history significant for AAA, CAD s/p CABG, AMI, hypertension admitted for chest pain rule out and ultimately discharged with a diagnosis of gastritis/duodenitis with improvement in his symptoms with PPI and Carafate therapy. On day of discharge patient reports to this provider that his symptoms are improved, no shortness of breath or chest pain, no abdominal pain, nausea. Physical exam: Vitals reviewed Gen: Alert and oriented, NAD HEENT: anicteric sclerae, EOMI CV: RRR no murmurs Pulm: CTAB no wheezes or crackles Abd: +BS soft, protuberant, no masses Ext: no edema, 2+ DP pulses Skin: no rashes, warm/dry Neuro: No focal neurologic deficits Labs, Rads, and ECG reviewed Assessment and Plan: Chest pain/gastritis/duodenitis: no evidence of ACS this admission, EKG without ischemic changes and unremarkable troponins. Does have a history of an aortic aneurysm repair. CTA negative for PE and no dissection. Echo without evidence of wall motion abnormalities. Ultimately determined to be likely gastritis/GERD related, was started on Protonix and Carafate to continue on discharge with GI follow-up. Did have EGD this admission with evidence of erythematous mucosa in the stomach and duodenum, biopsies were collected and are pending. Hypertension: Lisinopril held during this admission with low normotensive blood pressures on day of discharge. Medication also noted to have interaction with lithium and had low lithium level this admission. Recommend BP checks in the [facility] and can consider starting an antihypertensive if necessary. Recommend continued use of CPAP on discharge. Right lower extremity swelling: Did have venous Doppler without evidence of DVT but with varicosities, no further intervention. Plan otherwise as stated above Coding Level of Care Code 33870 INP/OBS DISCH >30 MIN Diagnoses Acid reflux K21.9 Left-sided chest pain R07.9 Epigastric discomfort R10.13 HTN (hypertension) I10 AMI (obstructive sleep apnea) G47.33 Dental cavity K02.9 Right ear pain H92.01 Edema of right lower extremity R60.0 Eye drainage H57.89
--- NOTE | 2022-12-04 15:47 | Anesthesiology Progress Note ---
Date of Service November 01, 2022 Anesthesia Post Procedure Pain Intensity Chest: Pain Intensity: 3 Head: Pain Intensity: 5 Transfer of Care Handoff Completed per policy Notes Mental Status: alert / awake / arousable and participated in evaluation Nausea / Vomiting: adequately controlled Pain: adequately controlled Airway Patency, RR, SpO2: stable & adequate BP & HR: stable & adequate Hydration State: stable & adequate Anesthetic Complications: no major complications apparent and Pt Satisfied with anesthetic care
== END 2022-12-02 15:14 | DRG 392 ==
LOC: EDINP 00:50 → ED 00:50 → SUATTDRO 04:02 → 2W 05:38 → SUATTDRO 11-29 13:32